=== PATIENT | male | born 1950 | race Caucasian/White ===

== ENCOUNTER 2023-10-10 11:48 | Inpatient (IN) ==
--- NOTE | 2023-10-10 12:18 | Emergency Department Note ---
Impression & Plan Syncope and collapse, Moderate Alzheimer's dementia ED Provider Note NAME: FANTASMA PHAN AGE: 73 SEX: M : 1950 ARRIVES VIA: Ambulance INFORMANT: Patient, , triage note ED PROVIDER(S): Ruddy Haywood MD CHIEF COMPLAINT: Near syncope, vomiting, stool incontinence MEDICAL DECISION MAKING: Patient presented due to concern for near syncopal episode. IV was established blood work was obtained. Patient did almost become syncopal and reports some shakiness had some confusion but this was almost baseline confusion but given that plus the incontinence a CT of the head was obtained. Patient denies any head or neck pain. Patient was ordered IV fluids. Patient was also given IV Zofran. Patient has a normal white count H&H and platelet count. Kidney function is unremarkable mild prerenal azotemia with a BUN/creatinine ratio of 31 with a BSG 139. Patient CT head that showed moderate ventriculomegaly does raise the possibility of NPH. Patient's chest x-ray shows cardiomegaly without evidence of congestive failure.Of note the patient CT head does show ventriculomegaly. After discussing this with the patient's she states that he has been worked up from an NPH standpoint which has been negative. Patient was able to get up and use the bathroom. Urinalysis was obtained. After further discussion with the patient the patient's family members they would prefer him to stay in the hospital which not think is unreasonable given the patient's presyncopal event for telemetry monitoring. I did speak with the on-call hospital service Dr. Galeano and the patient was admitted to medicine service Discussion w/ other healthcare providers: Dr. Galeano medicine service Prior /Outside records reviewed: None Differential diagnosis: Benign positional vertigo, dehydration, hypovolemia, anemia, infection, hypoglycemia, electrolyte abnormalities, arrhythmia, tox among others were considered. Diagnostics, as interpreted by me: ECG: Sinus bradycardia, rate of 52, first-degree AV block noted, prolonged KS, normal QRS, normal axis no ST elevations. Cardiac monitoring: An order was placed for continuous cardiac monitoring. The monitor shows a rate of 55 with sinus bradycardia rhythm. Patient was placed on pulse oximetry Medical decision rules: None Imaging studies: I informally interpreted the patient's chest x-ray without obvious pneumonia or pneumothorax with formal report to follow. HPI: Patient presents due to concern for near syncope that occurred prior to arrival. The patient reportedly had been sitting in a shower chair and completed a hot shower when his was doing some additional hygiene related things when apparently he almost passed out slumped over did have some shakiness and may have been confused but states that that is typical for his Alzheimer's. He did not pass out. The patient did have an episode of vomiting and was incontinent of stool in route. No history of seizures. Patient currently feels well now. at bedside states that the patient seems at baseline. Patient reportedly ate breakfast this morning. Prolonged outdoor activity. Patient's appetite has been fairly good although he may not be drinking as much in terms of liquids. Patient denies any chest pains or shortness of breath. Patient denies any abdominal pain PAST MEDICAL HISTORY: See Below PAST SURGICAL HISTORY: See Below SOCIAL HISTORY: See Below HOME MEDICATIONS: See Below ALLERGIES: See Below VITALS: See Below PHYSICAL EXAMINATION: GENERAL: NAD, non-toxic. EYE EXAM: Normal conjunctiva. PERRL, no anisocoria and EOM's grossly intact w/o pain. OROPHARYNX: Moist mucus membranes, grossly normal dentition. NECK: Trachea midline, no stridor. LUNGS: Clear to auscultation. Normal chest wall mechanics. HEART: NSR, no MRG. ABDOMEN: Abdomen soft, non-tender, no masses, no rebound or guarding. BACK: No CVA TTP. SKIN: No rashes and no bruising. UPPER EXTREMITIES: Upper extremities are grossly normal. LOWER EXTREMITIES: Grossly normal, no edema. NEURO EXAM: Awake and alert following commands, cranial nerves II-XII grossly intact, normal speech, moves all 4 extremities. Past Med/Surg History Problem List (Updated 10/11/23 @ 11:03 by Ruddy Haywood MD) Moderate Alzheimer's dementia (Acute) Syncope and collapse (Acute) Encounter for pre-operative examination Medical History History of gout [place] (hard of hearing) Lt > Rt Surgical History History of left cataract extraction History of right inguinal hernia repair History of left inguinal hernia repair History of vasectomy History of colonoscopy Family History Other No family history of adverse response to anesthesia Social History Smoking Status: Never smoker Second Hand Exposure: No; Do You Dip or Chew Tobacco: No; Hx Alcohol Use: Yes Alcohol type: beer and wine Hx Substance Use: No Preferred Language: Niuean Communication Ability: Impaired Mattress Spring Encaser Required: No Beliefs That Will Affect Care: None Current Living Situation: Spouse Feels Safe at Home: Yes Safety Concerns: Feels Safe At This Time Assistive Devices: Walker Allergies Allergies Allergy/AdvReac Type Severity Reaction Status Date / Time No Known Allergies Allergy Verified 03/11/23 16:37 Home Meds Home Medications Medication Instructions Recorded Confirmed cyanocobalamin (vitamin B-12) 1,000 mcg PO DAILY 10/10/23 10/10/23 pantoprazole 20 mg tablet,delayed 20 mg PO DAILY 10/10/23 10/10/23 release Results & Data (ED) Vital Signs Vital Signs - 24 hr 10/10/23 12:03 10/10/23 12:03 10/10/23 12:06 Temperature 36.4 C L Temperature Source Oral Pulse Rate 52 L 53 L 53 L Pulse Rate from SpO2 Sensor 53 L Pulse Rhythm Regular Pulse Strength Normal Respiratory Rate 18 12 Respiratory Effort / Characteristics Non-Labored Respiratory Depth Normal Respiratory Pattern Regular Blood Pressure 123/81 Blood Pressure Mean 95 Blood Pressure Position Lying Pulse Oximetry 94 95 Oxygen Delivery Method Room Air Sepsis Recent Fever Within 48 Hours No Sepsis New/Unexplained Change in Mental Status N/A Sepsis Action Taken by Nursing No Action Required 10/10/23 12:42 10/10/23 13:18 10/10/23 13:33 Temperature Temperature Source Pulse Rate 55 L 62 64 Pulse Rate from SpO2 Sensor 61 65 Pulse Rhythm Pulse Strength Respiratory Rate 14 14 12 Respiratory Effort / Characteristics Respiratory Depth Respiratory Pattern Blood Pressure Blood Pressure Mean Blood Pressure Position Pulse Oximetry 97 96 Oxygen Delivery Method Sepsis Recent Fever Within 48 Hours Sepsis New/Unexplained Change in Mental Status Sepsis Action Taken by Nursing 10/10/23 13:54 10/10/23 14:00 10/10/23 14:06 Temperature Temperature Source Pulse Rate 66 63 Pulse Rate from SpO2 Sensor 67 Pulse Rhythm Pulse Strength Respiratory Rate 13 13 Respiratory Effort / Characteristics Respiratory Depth Respiratory Pattern Blood Pressure 116/80 Blood Pressure Mean 90 Blood Pressure Position Pulse Oximetry 97 Oxygen Delivery Method Sepsis Recent Fever Within 48 Hours Sepsis New/Unexplained Change in Mental Status Sepsis Action Taken by Long-Term Medications Current Medication List: was personally reviewed by me Laboratory Data Attestation: I reviewed the patient's lab results. 10/11/23 06:58 10/11/23 06:58 Lab Results 10/10/23 10/10/23 Range/Units 12:00 15:10 WBC 7.38 (4.8-10.8) K/ul RBC 4.96 (4.70-6.10) M/uL Hgb 15.3 (14.0-18.0) g/dl Hct 45.6 (42.0-52.0) % MCV 91.9 (80.0-100.0) fL MCH 30.8 (25.0-34.0) pg MCHC 33.6 (32.0-36.0) g/dL RDW Std Deviation 44.8 (36.4-46.3) fL RDW Coeff of Jossie 13.2 (11.5-14.5) % Plt Count 197 (130-400) K/uL MPV 10.0 (9.4-12.4) fL Immature Gran % (Auto) 0.3 % Neut % (Auto) 45.4 % Lymph % (Auto) 40.2 % Centre % (Auto) 9.9 % Eos % (Auto) 3.1 % Baso % (Auto) 1.1 % Neut # (Auto) 3.35 (1.40-6.50) K/uL Lymph # (Auto) 2.97 (1.20-3.40) K/uL Centre # (Auto) 0.73 H (0.11-0.59) K/uL Eos # (Auto) 0.23 (0.00-0.50) K/uL Baso # (Auto) 0.08 (0.00-0.20) K/uL Immature Gran # (Auto) 0.02 (0.01-0.20) K/uL PT 11.2 (9.0-12.0) Seconds INR 1.0 (0.9-1.1) Sodium 140 (136-145) mmol/L Potassium 3.8 (3.5-5.1) mmol/L Chloride 107 (98-107) mmol/L Carbon Dioxide 27 (21-32) mmol/L Anion Gap 6 (3-11) BUN 23 (6-23) mg/dl Creatinine 1.08 (0.6-1.4) mg/dl Est Cr Clr Drug Dosing 66.8 ml/min Est GFR ( Amer) 77.4 ml/min Est GFR (Non-Af Amer) 66.8 ml/min BUN/Creatinine Ratio 21.3 H (10-20) Glucose 139 H (70-99(Fasting)) mg/dl Calcium 9.2 (8.6-10.3) mg/dl Magnesium 2.2 (1.7-2.4) mg/dl Total Bilirubin 0.6 (0.2-1.0) mg/dl AST 23 (13-39) U/L ALT 25 (7-52) U/L Alkaline Phosphatase 49 (34-104) U/L Troponin I High Sens 3.7 (0-20) pg/ml Total Protein 7.3 (6.0-8.3) gm/dl Albumin 4.0 (3.4-5.0) gm/dl Globulin 3.3 (2.5-4.0) gm/dl Albumin/Globulin Ratio 1.2 (0.9-2) TSH 4.415 (0.300-4.500) uIu/ml Urine Color Yellow Urine Appearance Clear (Clear) Urine pH 5.5 (4.5-7.5) Ur Specific [place] 1.022 (1.000-1.030) Urine Protein Negative (Negative) Urine Glucose (UA) Negative (Negative) Urine Ketones Negative (Negative) Urine Blood Negative (Negative) Urine Nitrite Negative (Negative) Urine Bilirubin Negative (Negative) Urine Urobilinogen Negative (Negative) Ur Leukocyte Esterase Negative (Negative) Administered Medications Discontinued Medications Sodium Chloride (Nss) 1,000 mls @ 999 mls/hr IV .Q1H1M MASON Stop: 10/10/23 13:30 Last Infusion: 10/10/23 14:15 Dose: Infused Documented By: Admin: 10/10/23 12:55 Dose: 999 mls/hr Documented By: LINSEY Ondansetron HCl (Ondansetron Inj 2 Mg/Ml 2 Ml Vial) 4 mg IV NOW STA Stop: 10/10/23 12:23 Last Admin: 10/10/23 14:15 Dose: Not Given Documented By[place] [facility] [place] Radiologist's Impression: Chest X-Ray 10/10/23 12:23 SINGLE VIEW CHEST CLINICAL HISTORY: Generalized weakness. FINDINGS: An AP, portable, upright chest radiograph is compared to study dated 03/11/2023. The heart is enlarged. The pulmonary vasculature is noncongested. Chronic mucosal thickening is similar to previous. Left basilar opacities likely represent scarring/atelectasis. No large pleural effusion or pneumothorax is seen. The skeletal structures are osteopenic. The bony thorax is grossly intact. IMPRESSION: 1. Cardiomegaly without radiographic evidence of congestive failure. 2. Left basilar opacities likely represent scarring/atelectasis. Correlate clinically. ACT 112: Negative or not required by law. Electronically signed by: Torey Belle M.D. 10/10/2023 12:[address] 10/10/23 12:[address] DOSE: 663.26 mGy.cm HISTORY: shakiness, stool incontinence, near syncope, confusion TECHNIQUE: Multiaxial CT images of the head were performed without the use of intravenous contrast. Automated exposure control was utilized for this study. A dose lowering technique was utilized adhering to the principles of ALARA. Comparison: Head CT 03/11/2023. Findings: The paranasal sinuses and mastoid air cells are clear. The calvarium and skull base are intact. There is no mass, hematoma, midline shift, acute infarct. Moderate ventriculomegaly again noted. This appears to be out of portion to the sulcal atrophy and raises the possibility of normal pressure hydrocephalus. This is similar to the prior study. Periventricular white matter hypodensity persists Impression: 1. No acute infarct or intracranial hemorrhage. 2. Moderate ventriculomegaly again noted. This appears to be out of portion to the sulcal atrophy and raises the possibility of normal pressure hydrocephalus. This is similar to the prior study. ACT 112: Negative or not required by law. Electronically signed by: Dax Han M.D. 10/10/2023 1:18 PM Discharge Plan Visit Data Chief Complaint: Syncope (Near Syncope) Stated Complaint: SYNCOPE ED Provider: Ruddy Haywood Discharge Problem: Syncope and collapse, Moderate Alzheimer's dementia Patient Disposition: Admitted As Inpatient Discharge Instructions Interventions: ED Discharge Assessment Last Done: 10/10/23 17:10
[2023-10-10 12:36] LABS: Basophils # (auto) 0.08 K/uL (0.00-0.20); Basophils % (auto) 1.1 %; Eosinophils # (auto) 0.23 K/uL (0.00-0.50); Eosinophils % (auto) 3.1 %; Hematocrit (blood only) 45.6 % (42.0-52.0); Hemoglobin 15.3 g/dl (14.0-18.0); Immature Granulocytes # (auto) 0.02 K/uL (0.01-0.20); Immature Granulocytes % (auto) 0.3 %; Lymphocytes # (auto) 2.97 K/uL (1.20-3.40); Lymphocytes % (auto) 40.2 %; Mean Corpuscular Hemoglobin 30.8 pg (25.0-34.0); Mean Corpuscular Hgb Conc 33.6 g/dL (32.0-36.0); Mean Corpuscular Volume 91.9 fL (80.0-100.0); Monocytes # (auto) 0.73 K/uL (0.11-0.59); Monocytes % (auto) 9.9 %; Neutrophils # (auto) 3.35 K/uL (1.40-6.50); Neutrophils % (auto) 45.4 %; Platelet Count 197 K/uL (130-400); RDW Coefficient of Variation 13.2 % (11.5-14.5); RDW Standard Deviation 44.8 fL (36.4-46.3); Red Blood Count 4.96 M/uL (4.70-6.10); White Blood Count 7.38 K/ul (4.8-10.8)
--- NOTE | 2023-10-10 12:44 | XRay Report ---
SINGLE VIEW CHEST CLINICAL HISTORY: Generalized weakness. FINDINGS: An AP, portable, upright chest radiograph is compared to study dated 03/11/2023. The heart i s enlarged. The pulmonary vasculature is noncongested. Chronic mucosal thickening is similar to previ ous. Left basilar opacities likely represent scarring/atelectasis. No large pleural effusion or pneum othorax is seen. The skeletal structures are osteopenic. The bony thorax is grossly intact. IMPRESSION: 1. Cardiomegaly without radiographic evidence of congestive failure. 2. Left basilar opacities likely represent scarring/atelectasis. Correlate clinically. ACT 112: Negative or not required by law. Electronically signed by: Torey Belle M.D. 10/10/2023 12:42 PM
[2023-10-10 12:53] LABS: Albumin Globulin Ratio 1.2 (0.9-2); BUN Creatinine Ratio 21.3 (10-20); Bilirubin,Total 0.6 mg/dl (0.2-1.0); Calcium 9.2 mg/dl (8.6-10.3); Creatinine Clr Calc Pharmacy 66.8 ml/min; Est GFR (African American) 77.4 ml/min; Est GFR (Non-African American) 66.8 ml/min; Globulin 3.3 gm/dl (2.5-4.0); Magnesium 2.2 mg/dl (1.7-2.4); Potassium 3.8 mmol/L (3.5-5.1); Total Protein 7.3 gm/dl (6.0-8.3)
[2023-10-10] MEDS: SODIUM CHLORIDE 0.9% 1,000 ML IV SCH (12:55)
[2023-10-10 12:59] LABS: Troponin I High Sensitivity 3.7 pg/ml (0-20)
[2023-10-10 13:07] LABS: Prothrombin Time 11.2 Seconds (9.0-12.0)
[2023-10-10 13:08] LABS: Thyroid Stimulating Hormone 4.415 uIu/ml (0.300-4.500)
--- NOTE | 2023-10-10 13:20 | CT Scan Report ---
HEAD CT NONCONTRAST CT DOSE: 663.26 mGy.cm HISTORY: shakiness, stool incontinence, near syncope, confusion TECHNIQUE: Multiaxial CT images of the head were performed without the use of intravenous contrast. A utomated exposure control was utilized for this study. A dose lowering technique was utilized adheri ng to the principles of ALARA. Comparison: Head CT 03/11/2023. Findings: The paranasal sinuses and mastoid air cells are clear. The calvarium and skull base are int act. There is no mass, hematoma, midline shift, acute infarct. Moderate ventriculomegaly again noted. This appears to be out of portion to the sulcal atrophy and raises the possibility of normal pressur e hydrocephalus. This is similar to the prior study. Periventricular white matter hypodensity persist s Impression: 1. No acute infarct or intracranial hemorrhage. 2. Moderate ventriculomegaly again noted. This appears to be out of portion to the sulcal atrophy and raises the possibility of normal pressure hydrocephalus. This is similar to the prior study. ACT 112: Negative or not required by law. Electronically signed by: Dax Han M.D. 10/10/2023 1:18 PM
[2023-10-10] MEDS: ONDANSETRON INJ 2 MG/ML 2 ML VIAL IV STA (14:15)
--- NOTE | 2023-10-10 15:29 | History & Physical Report ---
Date of Service October 10, 2023 Assessment & Plan (1) Syncope and collapse: (2) Moderate Alzheimer's dementia: Plan Mr. Arevalo is a 73 year old gentleman with moderate Alzhemier's dementia, GERD, traumatic fall c/b SAH 11/2022 presented to [facility] ED due to syncopal episode. Patient asymptomatic at time of exam. Concern is raised given his history of SAH, progressive cognitive impairment of this events ,prompting neuro consult. Symptoms suggestive of prodromal vasovagal event. #Syncope with convulsive movements #History of SAH unwitnessed fall 11/2022, found down, CT with small right SAH Hold chemoprophylaxis episodes of diaphoresis, pallor, incontinence suggestive of vasovagal episode, however given progressive cognitive impairment s/p traumatic injury No longer on medications for dementia 2/2 ADRs Neurology consult for any further evaluation -No clear postictal phase, patient followed commands nearly 1 minute post episode, however, multiple episodes and concerning history warrant discussion with neuro A1C and lipid panel in am ECHO monitor on tele Fall precautions orthostats #Moderate Alzhemier's Dementia Continue to follow with neurology delirium precautions continue b12 #GERD continue ppi #BPH with incontinence wears depends at home UA negative #Aortic root aneurysm last echo 2022 Aortic root is minimally dilated at 4.1 cm, Prox ascending aorta is minimally enlarged at 4.1 cm. ECHO as above DVT ppx SCDs admit med tele Admission and Anticipated Discharge Date Admission Date: Time spent evaluating patient, direct bedside care, chart review, placing orders, interpretation of diagnostic studies, discussion with consultants, patient, and family members, as well as other required patient management activities is 75 minutes. History of Present Illness Primary Care Provider: Kenn Bliss DO Mr. Arevalo is a 73 year old gentleman with moderate Alzhemier's dementia, GERD, tra umatic fall c/b SAH 11/2022 presented to [facility] ED due to syncopal episode. Patient states he doesn't recall events and deferred history to . Hayley at bedside, , reports that she woke the patient up this morning and he ate breakfast. She then prepped him for a shower. He uses a shower chair and prefers very hot showers--during this time she noted that his eyes rolled back, he began to jerk his arms, became pale and slumped. During this time the got water from the kitchen and patient was able to follow command and drink. As the episode subsided, patient was incontinent of stool. states he seemed at his normal shortly thereafter but agreed for EMS to bring him to ED. states that this episode has occurred previously around 3months prior--same scenario, in the shower. At that time, EMS gave a bolus in field and patient did not present to an ED. Patient states name and his location in a hospital, but did not state year and often deferred to . In the ED, vitals were notable for BP of 120s, HR of 50-60s, and O2 sat of high 90s on room air . Imaging revealed stable CT head EKG with sinus bradycardia, stable compared to prior ED interventions: 1L, zofran Patient to be admitted to [facility]. for further evaluation and management of syncopal episode Allergies Allergy/AdvReac Type Severity Reaction Status Date / Time No Known Allergies Allergy Verified 03/11/23 16:37 Home Medications Medication Instructions Recorded Confirmed Type cyanocobalamin (vitamin B-12) 1,000 mcg PO DAILY 10/10/23 10/10/23 History pantoprazole 20 mg tablet,delayed 20 mg PO DAILY 10/10/23 10/10/23 History release Past Med/Surg History Problem List (Updated 10/10/23 @ 19:25 by Haley Galeano MD) Moderate Alzheimer's dementia Syncope and collapse Encounter for pre-operative examination Medical History History of gout [place] (hard of hearing) Lt > Rt Surgical History History of colonoscopy History of left cataract extraction History of left inguinal hernia repair History of right inguinal hernia repair History of vasectomy Family History Other No family history of adverse response to anesthesia Social History Smoking Status: Never smoker Second Hand Exposure: No; Do You Dip or Chew Tobacco: No; Hx Alcohol Use: Yes Alcohol type: beer and wine Hx Substance Use: No Preferred Language: [place] Communication Ability: Impaired Grinder Operator Automatic Required: No Beliefs That Will Affect Care: None Current Living Situation: Spouse Feels Safe at Home: Yes Safety Concerns: Feels Safe At This Time Assistive Devices: Walker Review of Systems Review of Systems: Constitutional: (-) fever/chills, (-) recent loss of weight, (-) appetite changes, (-) night sweats. Head: (-) headache, (-) dizziness. Eye: (-) blurring of vision, (-) double vision, (-) redness. Ear: (-) hearing loss, (-) discharge, (-) vertigo Nose: (-) discharge, (-) bleeding, (-) congestion, (-) post nasal drip. Throat: (-) sore throat, (-) hoarseness of voice, (-) odynophagia. Cardiovascular: (-) chest pain, (-) palpitations, (-) syncope, (-) orthopnea, (- ) PND, (-) leg swelling. Respiratory: (-) shortness of breath, (-) cough, (-) wheezing, (-) hemoptysis. Neuro: (-) weakness in extremities, (-) numbness, (-) tingling, (-) tremor. Gastrointestinal: (-) belly pain, (-) belly distension, (-) nausea, (-) vomiting, (-) diarrhea, (-) constipation Genitourinary: (-) hematuria, (-) dysuria, (-) polyuria, (-) hesitancy, (-) frequency, (-) urinary incontinence. Physical Exam Physical Exam: GENERAL APPEARANCE: AxOx2 name, place, generally well-appearing male, pleasant w/ dementia, no acute distress. HEENT: NC, AT. MMM. EOMI, clear conjunctiva, oropharynx clear. NECK: Supple without lymphadenopathy. No stiffness or restricted ROM. HEART: Normal rate and regular rhythm, normal S1/S1, no m/r/g LUNGS: CTAB, moving air well. No crackles or wheezes are heard. ABDOMEN: Soft, nontender, nondistended with good bowel sounds heard. BACK: No CVAT, no obvious deformity. EXTREMITIES: Without cyanosis, clubbing or edema. NEUROLOGICAL: Grossly nonfocal. Alert and oriented, moving all 4 extremities. CN not formally tested but appear grossly intact. Skin: Warm and dry without any rash. Results & Data Results & Data Vital Signs (Past 12 Hours) Vital Signs Temp Pulse Resp BP Pulse Ox O2 Del Method 10/10/23 14:06 63 13 10/10/23 14:00 116/80 10/10/23 13:54 66 13 97 10/10/23 13:33 64 12 96 10/10/23 13:18 62 14 97 10/10/23 12:42 55 L 14 10/10/23 12:06 53 L 12 95 10/10/23 12:03 53 L 10/10/23 12:03 36.4 C L 52 L 18 123/81 94 Room Air Diagnostic Findings 2022 Echo results reviewed - Normal LVEF at 55-59% No wall motion abnormalities. No significant valvular disease. Aortic root is minimally dilated at 4.1 cm Prox ascending aorta is minimally enlarged at 4.1 cm. Stable measurements. No concerning findings. No changes at this time Medications Administered Short CBC 10/10/23 Range/Units 12:00 WBC 7.38 (4.8-10.8) K/ul Hgb 15.3 (14.0-18.0) g/dl Hct 45.6 (42.0-52.0) % Plt Count 197 (130-400) K/uL BMP 10/10/23 12:00 Sodium 140 Potassium 3.8 Chloride 107 Carbon Dioxide 27 BUN 23 Creatinine 1.08 Glucose 139 H Calcium 9.2 Liver Function 10/10/23 Range/Units 12:00 Total Bilirubin 0.6 (0.2-1.0) mg/dl AST 23 (13-39) U/L ALT 25 (7-52) U/L Alkaline Phosphatase 49 (34-104) U/L Albumin 4.0 (3.4-5.0) gm/dl Urine 10/10/23 Range/Units 15:10 Urine Color Yellow Urine Appearance Clear (Clear) Urine pH 5.5 (4.5-7.5) Ur Specific [place] 1.022 (1.000-1.030) Urine Protein Negative (Negative) Urine Glucose (UA) Negative (Negative)
[2023-10-10 15:39] LABS: Appearance Urine Clear (Clear); Bilirubin Urine Negative (Negative); Blood Urine Negative (Negative); Color Urine Yellow; Glucose Urine UA Negative (Negative); Ketones Urine Negative (Negative); Leukocyte Esterase Urine Negative (Negative); Nitrite Urine Negative (Negative); Protein Urine Negative (Negative); Specific Gravity Urine 1.022 (1.000-1.030); Urobilinogen Urine Negative (Negative); pH Urine 5.5 (4.5-7.5)
--- NOTE | 2023-10-10 22:28 | Electrocardiogram Report ---
Test Reason : Blood Pressure : / mmHG Vent. Rate : 052 BPM Atrial Rate : 052 BPM P-R Int : 240 ms QRS Dur : 098 ms QT Int : 428 ms P-R-T Axes : 067 050 059 degrees QTc Int : 398 ms Sinus bradycardia with 1st degree A-V block Diffuse ST elevation, consider early repolarization When compared with ECG of 11-MAR-2023 14:47, No significant change was found Confirmed by Juan Mondragon ([id number]) on 10/10/2023 10:28:21 PM Referred By: REFERRED SELF Confirmed By:Juan Mondragon
[2023-10-11 08:08] LABS: Hematocrit (blood only) 41.8 % (42.0-52.0); Hemoglobin 14.2 g/dl (14.0-18.0); Mean Corpuscular Hemoglobin 30.9 pg (25.0-34.0); Mean Corpuscular Volume 90.9 fL (80.0-100.0); Mean Platelet Volume 10.2 fL (9.4-12.4); Platelet Count 189 K/uL (130-400); RDW Coefficient of Variation 13.2 % (11.5-14.5); RDW Standard Deviation 43.8 fL (36.4-46.3); White Blood Count 8.99 K/ul (4.8-10.8)
[2023-10-11 08:21] LABS: BUN Creatinine Ratio 18.4 (10-20); Calcium 8.8 mg/dl (8.6-10.3); Est GFR (Non-African American) 70.7 ml/min; Phosphorus 3.3 mg/dl (2.5-4.9); Potassium 4.1 mmol/L (3.5-5.1)
--- OUTSIDE RECORDS SUMMARY | 2023-10-11 08:26 | External Medical Summary ---
Author Name Unknown Address Unknown Organization : Laboratory Report Ordering Provider Test Date Status MISAEL COUCH 08/11/2023 10:35:32 Final Observation Date Value Abnormality Reference (Units ) Status Vitamin E, level 08/11/2023 10:35:32 12.8 5.7 -19.9 (mg/L) Final Levels of alpha-tocopherol < 5 mg/L are consistent
with Vitamin E deficiency in adults. Beta+gamma tocopherol [Mass/ volume] in Serum or Plasma 08/11/2023 10:35:32 <1.0 <=4.3 (mg/L) Final Vitamin supplementation with in 24 hours prior to
blood draw may affect the accuracy of the results.
This test was developed and its analytical performance
characteristics have been determined by [facility] [place], [place]. It has
not been cleared or approved by the U.S. Food and Drug
Administration. This assay has been validated pursuant
to the CLIA regulations and is used for clinical
purposes.

Test Performed at:
[email or web address]
[address]
[place] [address]
Dax Steven M.D., Ph.D.,Director of Laboratories Performing Location
--- OUTSIDE RECORDS SUMMARY | 2023-10-11 08:26 | External Medical Summary ---
Author Name Unknown Address Unknown Organization [id number]:[facility] [place] [address] Laboratory Report Ordering Provider Test Date Status CELINA COUCHGIN 08/04/2023 15:12:27 Final Warfarin Therapy
INR: 2 .0-3.0 conventional anticoagulation
INR: 2.5- 3.5 high intensity anticoagulation Observation Date Value Abnormality Reference (Units ) Status PT 08/04/2023 15:12:27 13.8 11.6-15.2 (seconds) Final INR 08/04/2023 15:12:27 1.1 0.8-1.2 Final Performing Location [facility] [place] [address]
--- OUTSIDE RECORDS SUMMARY | 2023-10-11 08:26 | External Medical Summary | Summary of Care ---
Author Name Unknown Organization [facility] Address [address] [place] [address] Phone [phone] Care Team Providers Care Iv Therapy Nurse Name Role Phone Kenn Bliss DO Primary Care Provider Reason for Visit * Reason Comments Follow Up Encounter Details Date Type Department Care Team ([facility] st Contact Info) Description 08/28/2023 3:30 PM EDT Telemedicine Neurology, [place] [address] [facility] [address] [place] [address] Madie Sanchez MD [address] [place] [address] [place] [address] Moderate late onset Alzheimer's dementia without behavioral disturbance, psychotic disturbance, mood disturbance, or anxiety (HCC)*; Other polyneuropathy; Vascular parkinsonism (HCC) Allergies No known active allergiesdocumented as of this encounter (statuses as of 08/28/2023) Medications Medication Sig Dispensed Refills Start Date End Date Status Debrox 6.5 % Otic Solution (Carbamide Peroxide)Indications: Bilateral impacted cerumen Administer 5 Drops into the left ear in the morning and 5 Drops before bedtime. Fill ear canal and insert cotton plug. Remove plug after 15 to 30 minutes. For 2 weeks. 15 mL 0 2 Active Acetaminophen 325 MG Oral Tablet (Tylenol) Take 2 Tablets by mouth every 4 hours as needed. 0 3 Active B-12 1000 MCG Oral Capsule Take 1 Capsule by mouth in the morning. 90 Capsule 3 3 Active Donepezil HCl 10 MG Oral Tablet (Aricept) Take 1 Tablet by mouth in the morning. Take with largest meal of the day.. 90 Tablet 3 3 08/28/19 24 Discontinu ed(Medicat ion List Clean Up) Melatonin 3 MG Oral Capsule Take 1 Capsule by mouth at bedtime. 0 08/28/19 24 Discontinu ed(Medicat ion List Clean Up) Venlafaxine HCl ER 37.5 MG Oral Capsule Extended Release 24 Hour (Effexor XR) Take 1 Capsule by mouth in the morning. 30 Capsule 3 3 08/28/19 24 Discontinu ed(Medicat ion List Clean Up) QUEtiapine Fumarate 25 MG Oral Tablet (SEROquel)Indications :Memory change,Subarachnoid hemorrhage (HCC),Cerebral ventriculomegaly take 1 tablet by mouth at bedtime 90 Tablet 1 3 08/28/19 24 Discontinu ed(Medicat ion List Clean Up) Ondansetron HCl 4 MG Oral Tablet (Zofran) take 1 tablet by mouth every 8 hours if needed for nausea 20 Tablet 5 3 08/28/19 24 Discontinu ed(Medicat ion List Clean Up) Sildenafil Citrate 50 MG Oral Tablet take 1 tablet by mouth once daily if needed for ERECTILE DYSFUNCTION 30 Tablet 0 3 08/28/19 24 Discontinu ed(Medicat ion List Clean Up) methylPREDNISolone 4 MG Oral Tablet Therapy Pack (Medrol Dosepack) follow package directions 21 Tablet 0 3 08/28/19 24 Discontinu ed(Medicat ion List Clean Up) Modafinil 100 MG Oral Tablet (Provigil)Indications :Idiopathic hypersomnolence Take 1 Tablet by mouth in the morning. 30 Tablet 3 4 08/28/19 24 Discontinu ed(Medicat ion List Clean Up) Memantine HCl 5 MG Oral Tablet (Namenda) Take by mouth 1 tab daily week 1, 1 tab twice daily week 2, 2 tabs in am & 1 tab in pm week 3. 42 Tablet 0 4 08/28/19 24 Discontinu ed(Medicat ion List Clean Up) Memantine HCl 10 MG Oral Tablet (Namenda) Take 1 Tablet by mouth 2 times a day with morning and evening meals. WEEK 4 AND THEREAFTER 180 Tablet 3 4 08/28/19 24 Discontinu ed(Medicat ion List Clean Up) Pantoprazole Sodium 20 MG Oral Tablet Delayed Release (Protonix) Take 1 Tablet by mouth in the morning. 90 Tablet 1 4 08/28/19 24 Discontinu ed(Medicat ion List Clean Up) documented as of this encounter (statuses as of 08/28/2023) Active Problems Problem Noted Date Diagnosed Date Aneurysm of ascending aorta without rupture 06/2022 Tick bite of male external genital organ 023 Well adult exam 01/21/2018 Dyslipidemia, goal LDL below 160 06/16/2014 Gout 04/01/2008 ADVANCE DIRECTIVE INFORMATION 10/08/2005 Overview: Pt given booklet. 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 BILAT INGUINAL HERNIA 11/24/20032018 PURE HYPERCHOLESTEROLEM 11/10/200304/04 Overview: Per Lipid Taxonomy. documented as of this encounter (statuses as of 08/28/2023) Immunizations Name Administration Dates Next Due COVID-19 mRNA, LNP-s, No Pre serve, 2-Dose Series (Pfizer) 02/04/2021 COVID-19, LNP-s, No Preserve , Raghavendra-sucrose, Ages 12+ (Pfizer) 08/11/2021 Pneumococcal Conjugate Vacc, 13 Valent (Prevnar) 06/16/2014 Pneumococcal Polysaccharide PPV23 (Pneumovax) SARS-COV-2 (COVID-19) Vaccine Unspecified 2020 Season Influenza, Quad, PF, Adjuvanted, 65+ Yrs, IM (FLUAD) 02/28/2022 Seasonal Influenza Virus Vac cine, Unspecified Formulation 02/04/2020 Seasonal Influenza, PF, 6 M & above, IM , (FluLaval or Fluzone) 01/03/2021,01/20/2018 Seasonal Influenza, Quadrivalent Hd (Fluzone Hd) 03/11/2023 Seasonal Influenza, Quadrivalent, No Preserve, I M 02/06/2017,02/07/2016 Seasonal Influenza, Trivalent, Adjuvanted, 65+ y rs 02/09/2019 TDAP (age 10 and older)(Boostrix) 11/17/2022, TDAP (age 11 and older)(Adacel) 03/22/2011 Zoster Vaccine Recombinant (Shingrix) 10/12/2019 ,07/01/2019 documented as of this encounter Social History Tobacco Use Types Packs/Day Years Used Date Smoking Tobacco: Never Smokeless Tobacco: Never Alcohol Use Standard Drinks/Week Comments Yes 0 (1 standard drink = 0.6 oz pur e alcohol) 1.5 beers a day PHQ-2 Answer Date Recorded PHQ Adult Total Score 0 11/04/2022 Hunger Vital Sign Answer Date Recorded Within the past 12 months, y ou worried that your food would run out before you got the money to buy more. Never true 03/11/20 23 Within the past 12 months, t he food you bought just didn't last and you didn't have money to get more. Never true 03/11/2023 Sex and Gender Information Value Date Recorded Sex Assigned at Male 03/11/2023 9:27 AM EST Gender Identity Male 03/11/2023 9:27 AM EST Sexual Orientation Straight 03/11/2023 9: 27 AM EST Job Start Date Occupation Industry Not on file Not on file Not on file documented as of this encounter Progress Notes * Madie Sanchez MD - 08/28/2023 3:33 PM EDT Patient location: HOME. I was in a hospital or clinic location. After connecting through televideo,patient was verified with two unique identifiers. Patient (or authorized legal new accounts banking representative) was then informed that this was a Telemedicine visit and being conducted confidentially over secure lines. Methods to assure confidentiality were taken. Patient acknowledged consent and understanding of pr ivacy and security of the Telemedicine visit. The patient agreed to participate. [facility] Today I had the pleasure of seeing Angel Arevalo in follow-up at the [facility] Program. 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 Imaging from 2020 to 2022 shows enlarged ventricles (stable) as well as MTL atrophy, and vascular changes (confluent occipital horns of lateral ventricles). Ongoing question of NPH resolved after unsuccessful large volume tap August 2023. 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 He had CSF testing, neg for CJD, "borderline" AD--but more closely resembling c/w--ATI 0.26 and p-tau in the 63.7 (cut off for consistent 0.68). MoCA showed reduction in EF, V/S, memory. Exam shows peripheral neuropathy and resultant sensory ataxia and now more vascular parkinsonism (hard to stand from sitting). Gait changes from peripheral neuropathy (EMG shows length dependent; exam shows decreased sensationand proprioception). The most important diagnosis in this case is dementia of the Alzheimer's type, moderate stages. His helps with bathing, and prompting for some ADLs He has become incontinent (not clear if heis unaware or aware of urge). He can mostly dress himself. Behavioral Issues: +sleeping a lot; +apathy, ("flat" he calls it). Effexor tried (s/e); modafinil was not approved. May consider stimulant? Safety Issues: Fall risk (neuropathy +vascular parkinsonism)--has been getting home PT Has INSURANCE CLAIMS CLERK--didn't find it that helpful. Hayley is interested in cognitive exercises--will ask Nneka if she can compile things--I gave her [place] name for now. On B12. Off Aricept--caused s/e's. Reassured OK not to be on dementia meds Pt lives at home with Hayley and one adult child. Other child visits weekly. Others are involvedin care. Pt's looking for home health -- she plans on trip to [place] with daughter October and wants someone to help with bathing. She saw [facility] once, did not find it that helpful; she sees a therapist whom she finds very helpful. Thank you once again for allowing us to participate in the care of this patient. They will see Dr Whitehead in [place] at least once for in person exam, may cont to see her there or return to see me telemed. No orders found. There are no Patient Instructions on file for this visit. Interval History Since our last visit, by report of the spouse Angel Fitchl has been doing worse. Some good days and bad days. Biggest issues is his sleeping. Appetite has been "pretty good". Weight stable even a little weight gain. Overall less physical activity, still "flat". He is less involved with the home PT. He enjoys seeing his children--less flat then. He "lights up" when he sees them--one lives with them and another once a week. Mood: rare if ever anxiety, restlessness. Or behavioral changes. No depression. Sleeping: Pretty good through the day-- is not sure. Sleeps during the day a lot as well. He comes out of his room pretty late (11am to 1pm) and has a good meal. worried about his sleep--he will go and rest even with people around. She is starting to wonder about home health. She needs someone to come in for bathing and hygiene while she is away. She sees a therapist which has been really helpful for her. He is dressing himself for the most part. Needs help bathing. Incontinent. With regards to our instructions on last visit, the patient has been able to follow all recommendations. Since their last visit, he has had changes to his medications other than what I recommended on his last visit: he is off all meds except B12 . Outpatient Medications Prior to Visit Medication Sig Dispense Refill [DISCONTINUED] Pantoprazole Sodium 20 MG Oral Tablet Delayed Release (Protonix) Take 1 Tablet by mouth in the morning. 90 Tablet 1 [DISCONTINUED] Memantine HCl 10 MG Oral Tablet (Namenda) Take 1 Tablet by mouth 2 times a day with morning and evening meals. WEEK 4 AND THEREAFTER 180 Tablet 3 [DISCONTINUED] Memantine HCl 5 MG Oral Tablet (Namenda) Take by mouth 1 tab daily week 1, 1 tab twice daily week 2, 2 tabs in am & 1 tab in pm week 3. 42 Tablet 0 [DISCONTINUED] Modafinil 100 MG Oral Tablet (Provigil) Take 1 Tablet by mouth in the morning. 30 Tablet 3 [DISCONTINUED] methylPREDNISolone 4 MG Oral Tablet Therapy Pack (Medrol Dosepack) follow package directions 21 Tablet 0 [DISCONTINUED] Ondansetron HCl 4 MG Oral Tablet (Zofran) take 1 tablet by mouth every 8 hours if needed for nausea 20 Tablet 5 [DISCONTINUED] QUEtiapine Fumarate 25 MG Oral Tablet (SEROquel) take 1 tablet by mouth at bedtime 90 Tablet 1 [DISCONTINUED] Sildenafil Citrate 50 MG Oral Tablet take 1 tablet by mouth once daily if needed forERECTILE DYSFUNCTION 30 Tablet 0 B-12 1000 MCG Oral Capsule Take 1 Capsule by mouth in the morning. 90 Capsule 3 [DISCONTINUED] Venlafaxine HCl ER 37.5 MG Oral Capsule Extended Release 24 Hour (Effexor XR) Take 1Capsule by mouth in the morning. 30 Capsule 3 [DISCONTINUED] Melatonin 3 MG Oral Capsule Take 1 Capsule by mouth at bedtime. [DISCONTINUED] Donepezil HCl 10 MG Oral Tablet (Aricept) Take 1 Tablet by mouth in the morning. Take with largest meal of the day.. 90 Tablet 3 Acetaminophen 325 MG Oral Tablet (Tylenol) Take 2 Tablets by mouth every 4 hours as needed. Debrox 6.5 % Otic Solution (Carbamide Peroxide) Administer 5 Drops into the left ear in the morningand 5 Drops before bedtime. Fill ear canal and insert cotton plug. Remove plug after 15 to 30 minutes. For 2 weeks. 15 mL 0 No facility-administered medications prior to visit. Last reviewed on 08/07/2023 8:16 AM by Brittany Venegas MED ASSIST Review of patient's allergies indicates: No Known Allergies Results for orders placed or performed in visit on 08/11/23 VITAMIN B1 (THIAMINE), BLOOD, LC/MS/MS Result Value Ref Range Vitamin B1 (Thiamine),B 132 78 - 185 nmol/L COPPER, SERUM OR PLASMA Result Value Ref Range Copper 131 70 - 175 mcg/dL Examination There were no vitals taken for this visit. On examination today, the patients general appearance was well nourished, well developed, and inno apparent distress. Telephone MMSE Temporal Orientation: 05/09 Date, Month (November), Year (2015), Day (), Season (summer) Spatial Orientation: 06/[address], Town, County, State, telephone number where pt can 'usually be reached' Registration: 06/07 Ball, flag, tree OR table, apple bacilio Working Memory: 06/09 WORLD Backwards or Serial Sevens (DRLW) Namin/1 What is the name of the thing you are speaking into? Three Step Command: 05/07 Say johannyestee, tap the mouthpiece of the phone 3 times, then say I'm back. Repetition: Repeat this phrase: "No ifs ands or buts" Delayed Recall: TOTAL: 01/28 Convert to MMSE: (Total x 0.777) + 6.394 = Additional Information Permission was not requested for observers to be in the room during this visit. This is a tele-video visit and today, I personally spent 66 minutes in pre reviewing the patient's outside/prior records, separately obtaining history, performing a medically appropriate history and exam as documented above, counseling and educating the patient, documenting the clinical informationin the EMR, independently reviewing and interpreting results as documented above and ordering prescription medications, tests and/or procedures as documented above Thank you once for consulting us on this interesting case. Assessment and plan can be found at the beginning of this consultation note. documented in this encounter Plan of Treatment Upcoming Encounters Date Type Department Care Team (Late st Contact Info) Description 09/17/2023 8:00 AM EDT Office Visit [facility] [address] [place] [id number] Kenn Bliss DO [address] [place] [address] Health Maintenance Due Date Last Done Comments COLONOSCOPY-EVERY 3 YRS AGES 18-100 09/24/2019 09/23/2016, 09/23/2016 COVID-19 Vaccine (4 - 2022- season) 2023 08/11/2021, 02/04/2021, 07/03/2020 Depression Screening 11/05/2023 11/04/2022 DTaP,Tdap,and Td Vaccines (4 - Td or Tdap) 11/17/2032 11/17/2022, 11/02/2019, 03/22/2011, Additional history exists Hepatitis C Screening Completed 07/19/2015 Pneumococcal Vaccine: 65+ Years Completed 02/07/2016, 06/16/2014 Zoster Vaccines Completed 10/12/2019, 07/01/2019 Influenza Vaccine (FLU shot) Completed 11/2022, 02/28/2022, 01/03/2021, Additional history exists GARDASIL-HPV IMMUNIZATION SERIES Aged Out No longer eligible based on patient's age to complete this topic Hepatitis B Aged Out No longer eligi ble based on patient's age to complete this topic MENINGOCOCCAL (MENACTRA/MENVEO) Aged Out No longer eligible based on patient's age to complete this topic documented as of this encounter Medical Devices Implanted Type Area Hanger Device Identifier Shelf Expiration Date Model / Serial / Lot Bard Mesh Perfix Plug Implanted:Qty: 1 on 03/17/2014 at [facility] Tissue - Non Human 05/17/2018 [id number] / / [id number] documented as of this encounter Visit Diagnoses Diagnosis Moderate late onset Alzheimer's dementia without behavioral disturbance, psychotic disturbance, mood disturbance, or anxiety (HCC)- Primary Other polyneuropathy Vascular parkinsonism (HCC) Paralysis agitans documented in this encounter Care Teams Iv Therapy Nurse Relationship Specialty Start Date End Date Kenn Bliss DO [address] [facility] [place] [address] PCP - General Family Medicine 01/20/18 documented as of this encounter
--- OUTSIDE RECORDS SUMMARY | 2023-10-11 08:26 | External Medical Summary | Summary of Care ---
Author Name Unknown Organization [facility] Address [address] [place] [address] Phone [phone] Care Team Providers Care Ship Design Teacher Name Role Phone Bliss Kenn Burrellcallie Primary Care Provider Reason for Visit * Reason Comments Other Procedure for NPH Encounter Details Date Type Department Care Team ([facility] st Contact Info) Description 08/07/2023 8:00 AM EDT Office Visit Neurosurgery, [place] [address], [place] [phone] Jhoana Booth PA-C [address] [place], [place] [phone] NPH (normal pressure hydrocephalus) ([facility]) [G91.2]* Allergies No known active allergiesdocumented as of this encounter (statuses as of 08/07/2023) Medications Medication Sig Dispensed Refills Start Date End Date Status Debrox 6.5 % Otic Solution (Carbamide Peroxide)Indications:B ilateral impacted cerumen Administer 5 Drops into the left ear in the morning and 5 Drops before bedtime. Fill ear canal and insert cotton plug. Remove plug after 15 to 30 minutes. For 2 weeks. 15 mL 0 04/19/2022 Active Acetaminophen 325 MG Oral Tablet (Tylenol) Take 2 Tablets by mouth every 4 hours as needed. 0 11/22/2022 Active Donepezil HCl 10 MG Oral Tablet (Aricept) Take 1 Tablet by mouth in the morning. Take with largest meal of the day.. 90 Tablet 3 12/23/2022 Active Additional Information Patient not taking.Reported on 05/19/2023 Melatonin 3 MG Oral Capsule Take 1 Capsule by mouth at bedtime. 0 Active Venlafaxine HCl ER 37.5 MG Oral Capsule Extended Release 24 Hour (Effexor XR) Take 1 Capsule by mouth in the morning. 30 Capsule 3 03/24/2023 Active Additional Information Patient not taking.Reported on 05/19/2023 B-12 1000 MCG Oral Capsule Take 1 Capsule by mouth in the morning. 90 Capsule 3 03/24/2023 Active QUEtiapine Fumarate 25 MG Oral Tablet (SEROquel)Indications: Memory change,Subarachnoid hemorrhage (HCC),Cerebral ventriculomegaly take 1 tablet by mouth at bedtime 90 Tablet 1 03/25/2023 Active Additional Information Patient not taking.Reported on 05/19/2023 Ondansetron HCl 4 MG Oral Tablet (Zofran) take 1 tablet by mouth every 8 hours if needed for nausea 20 Tablet 5 03/25/2023 Active Additional Information Patient not taking.Reported on 05/19/2023 Sildenafil Citrate 50 MG Oral Tablet take 1 tablet by mouth once daily if needed for ERECTILE DYSFUNCTION 30 Tablet 0 03/25/2023 Active Additional Information Patient not taking.Reported on 07/11/2023 methylPREDNISolone 4 MG Oral Tablet Therapy Pack (Medrol Dosepack) follow package directions 21 Tablet 0 04/18/2023 Active Additional Information Patient not taking.Reported on 05/19/2023 Modafinil 100 MG Oral Tablet (Provigil)Indications: Idiopathic hypersomnolence Take 1 Tablet by mouth in the morning. 30 Tablet 3 06/06/2023 Active Additional Information Patient not taking.Reported on 07/11/2023 Memantine HCl 5 MG Oral Tablet (Namenda) Take by mouth 1 tab daily week 1, 1 tab twice daily week 2, 2 tabs in am & 1 tab in pm week 3. 42 Tablet 0 06/18/2023 Active Additional Information Patient not taking.Reported on 07/11/2023 Memantine HCl 10 MG Oral Tablet (Namenda) Take 1 Tablet by mouth 2 times a day with morning and evening meals. WEEK 4 AND THEREAFTER 180 Tablet 3 06/18/2023 Active Additional Information Patient not taking.Reported on 07/11/2023 Pantoprazole Sodium 20 MG Oral Tablet Delayed Release (Protonix) Take 1 Tablet by mouth in the morning. 90 Tablet 1 07/11/2023 Active Additional Information Patient not taking.Reported on 08/07/2023 documented as of this encounter (statuses as of 08/07/2023) Active Problems Problem Noted Date Diagnosed Date [...] as of this encounter (statuses as of 08/07/2023) Resolved Problems Problem Noted Date Diagnosed Date Resolved Date Inguinal hernia, right 02/09/201402/05 Dyslipidemia, goal to be determined 04/13/2009 06/16/2014 Overview: Per Lipid Taxonomy. BILAT INGUINAL HERNIA 11/24/20032018 PURE HYPERCHOLESTEROLEM 11/10/200304/04 Overview: Per Lipid Taxonomy. documented as of this encounter (statuses as of 08/07/2023) Immunizations Name Administration Dates Next Due COVID-19 mRNA, LNP-s, No Pre serve, 2-Dose Series (STYLHUNT) 02/04/2021 COVID-19, LNP-s, No Preserve , Raghavendra-sucrose, [...] as of this encounter Progress Notes * Jhoana Booth PA-C - 08/07/2023 4:12 PM EDT PROCEDURE NOTE - Lumbar Puncture - Neurology Service [facility] [id number] Name: Angel Arevalo Location: D1 procedure room Date: 08/07/2023 Time: 4:12 PM PRIOR TO PROCEDURE: The patient was evaluated prior to the procedure. The patient was identified as Angel Arevalo, and the procedure verified as lumbar puncture. A Time Out was held and the following information confirmed. Verify Correct Patient: Yes Verify Correct Site: Yes Verify Procedure Matches Verbalized Consent: Yes Verify Correct Position: Yes Availability of Necessary Equipment: Yes Other Healthcare Professional(s) Verbalize(s) Agreement with Timeout: Yes Anticoagulation / Antiplatelet: No Site Marked: Yes Discussion was held with the patient concerning lumbar puncture. The risks and benefits were explained with possible risks to include local back pain, headache, bleeding, infection, neurological sequelea (herniation and/or paralysis), and tract formation/subarachnoid epidermal cyst. The patient freely signed the consent form. PROCEDURE NOTE: Procedure: Lumbar puncture - spinal tap Indication: NPH Food And Beverage Assistant Manager/Tooling Engineering Tech: HAZEL Lopez/Brayan Perez MD Complication/Corrective Action: None Comments/Findings: successful puncture DESCRIPTION OF THE PROCEDURE: Patient was placed in the lateral decubitus position with hips, knees and neck flexed. Landmarks identified. Patient prepped and draped in usual sterile fashion. Skin anesthetized with 1% lidocaine. Lumbar puncture performed using a 3.5 inch 22 gauge needle with stylet. Atraumatic tap was obtained on the 1st attempt. Opening pressure was 18.5 millimeters H2O. Approximately 40mL of clear fluid wasremoved in usual manner without any problems. Closing pressure was Closing pressure was 5 mm of water.. Stylet replaced and needle withdrawn. CSF was sent to lab for refer to lab orders (12) . Patient tolerated the procedure well. The patient was provided with written and verbal instructions. I performed the procedure. documented in this encounter Plan of Treatment Upcoming Encounters Date Type Department Care Team (Late st Contact Info) Description 09/17/2023 8:00 AM EDT Office Visit [facility] [place] [address] [facility] [place] [address] Kenn Bliss DO [address] [place] [address] Health Maintenance Due Date Last Done Comments COLONOSCOPY-EVERY 3 YRS AGES 18-100 09/24/2019 09/23/2016, 09/23/2016 COVID-19 Vaccine (2022- season) 2023 08/11/2021, 02/04/2021, 07/03/2020 Depression Screening [...] this encounter Medical Devices Implanted Type Area Senior Producer Device Identifier Shelf Expiration Date Model / Serial / Lot Bard Mesh Perfix Plug Implanted:Qty: 1 on 03/17/2014 at OR [facility] Tissue - Non Human 05/17/2018 [id number] / / [id number] documented as of this encounter Visit Diagnoses Diagnosis NPH (normal pressure hydrocephalus) (HCC) [G91.2]- Primary Idiopathic normal pressure hydrocephalus (INPH) documented in this encounter Care Teams Ship Design Teacher Relationship Specialty Start Date End Date Kenn Bliss DO [address] [place] [address] PCP - General Family Medicine 01/20/18 documented as of this encounter
--- OUTSIDE RECORDS SUMMARY | 2023-10-11 08:26 | External Medical Summary ---
Author Name Unknown Address Unknown Organization : Laboratory Report Ordering Provider Test Date Status MISAEL COUCH 08/11/2023 10:35:32 Final Observation Date Value Abnormality Reference (Units ) Status Homocysteine 08/11/2023 10:35:32 12.6 Above high normal <11.4 (umol/L) Final Homocysteine is increased by functional deficiency of
folate or vitamin B12. Testing for methylmalonic acid
differentiates between these deficiencies. Other causes
of increased homocysteine include renal failure, folate
antagonists such as methotrexate and phenytoin, and
exposure to nitrous oxide.
Fozia Gloria, et al. [employer] [facility]. 1999;131(5):331-9.

Test Performed at:
[facility]
[address] [facility] [facility]
[place] [address]
Dax Steven M.D., Ph.D.,Director of Laboratories Performing Location
--- OUTSIDE RECORDS SUMMARY | 2023-10-11 08:26 | External Medical Summary | Summary of Care ---
Author Name Unknown Organization [facility] Address [address] [place] [address] Phone [phone] Care Team Providers Care Grid Operator Name Role Phone Bliss Gaurav Burrellcallie Primary Care Provider Reason for Visit * Reason Comments Return Neuro Encounter Details Date Type Department Care Team ([facility] st Contact Info) Description 08/07/2023 8:00 AM EDT Office Visit Neurology, [place] [address] [place] [address] Wong Perez MD [address] [place] [address] Cerebral ventriculomegaly*; Dementia without behavioral disturbance, psychotic disturbance, mood disturbance, or anxiety, unspecified dementia severity, unspecified dementia type (HCC) Allergies No known active allergiesdocumented as [...] mRNA, LNP-s, No Pre serve, 2-Dose Series (Is[facility]) 02/04/2021 COVID-19, LNP-s, No Preserve , Raghavendra-sucrose, [...] on file documented as of this encounter Last Filed Vital Signs Vital Sign Reading Time Taken Comments Blood Pressure 98/68 08/07/2023 8:15 AM EDT Pulse 66 08/07/2023 8:15 AM EDT Temperature 36.1 C (96.9 F) 08/07/2023 8:15 AM ED T Respiratory Rate - - Oxygen Saturation 93% 08/07/2023 8:15 AM EDT Inhaled Oxygen Concentration - - Weight 85.9 kg (189 lb 6.4 oz) 08/07/2023 8:15 A M EDT Height 182.9 cm (6') 08/07/2023 8:15 AM EDT Body Mass Index 25.69 08/07/2023 8:15 AM EDT documented in this encounter Progress Notes * Wong Perez MD - 08/07/2023 9:52 AM EDT Neurology Outpatient New Visit Movement Disorders Subspecialty [facility] Ref: GAURAV BLISS[[id number]] [address] [place] [address] (office) [phone] (fax) PCP: GAURAV BLISS [address] [place] [address] [phone] History provided by: patient and family, - Hayley History of Present Illness: Mr. Angel Arevalo is a 73 year old RH male, who presents on 08/07/2023 for the Chief Complaint Patient presents with Return Neuro Per - he had a fall while hiking 11/24 - then he saw the memory - 12/25 - inability to do things, log into computer, isolating himself. Looking back - balance issues since 2018. H/o neuropathy. [facility] Visits Pre-LP Post - LP Date 08/07/2023 Time 8:05 AM 11:20 am 1st TUG 30 - he forgot to turn at 10 feet 18.11 2nd TUG 60 - he forgot to turn at 10 f 19.23 3rd TUG 15 - he was reminded at 10 f to go back and sit 23 Average Comments He needs reminders every time, what he needs to do. Gait is slight wide base, mild decreased arm swing He could turn this time w/o hint the first 2 times only, no need to remind him that, one time touch the wall, still unsteady; 3rd time he forgot when to turn. Romberg neg neg MMSE 16 UI yes Head Circ 58 OP 18.5 CP 5 CC removed 43 CSF Studies Pr, cells with diff , glucose, P- tau, Exposures to dopamine depleting medications: no recent studies. As per HPI otherwise all 14 systems reviewed and are negative. Current Outpatient Medications Medication Sig Dispense Refill Acetaminophen 325 MG Oral Tablet (Tylenol) Take 2 Tablets by mouth every 4 hours as needed. B-12 1000 MCG Oral Capsule Take 1 Capsule by mouth in the morning. 90 Capsule 3 Debrox 6.5 % Otic Solution (Carbamide Peroxide) Administer 5 Drops into the left ear in the morningand 5 Drops before bedtime. Fill ear canal and insert cotton plug. Remove plug after 15 to 30 minutes. For 2 weeks. 15 mL 0 Donepezil HCl 10 MG Oral Tablet (Aricept) Take 1 Tablet by mouth in the morning. Take with largest meal of the day.. (Patient not taking: Reported on 05/19/2023) 90 Tablet 3 Melatonin 3 MG Oral Capsule Take 1 Capsule by mouth at bedtime. (Patient not taking: Reported on 05/19/2023) Venlafaxine HCl ER 37.5 MG Oral Capsule Extended Release 24 Hour (Effexor XR) Take 1 Capsule by mouth in the morning. (Patient not taking: Reported on 05/19/2023) 30 Capsule 3 QUEtiapine Fumarate 25 MG Oral Tablet (SEROquel) take 1 tablet by mouth at bedtime (Patient not taking: Reported on 05/19/2023) 90 Tablet 1 Ondansetron HCl 4 MG Oral Tablet (Zofran) take 1 tablet by mouth every 8 hours if needed for nausea(Patient not taking: Reported on 05/19/2023) 20 Tablet 5 Sildenafil Citrate 50 MG Oral Tablet take 1 tablet by mouth once daily if needed for ERECTILE DYSFUNCTION (Patient not taking: Reported on 07/11/2023) 30 Tablet 0 methylPREDNISolone 4 MG Oral Tablet Therapy Pack (Medrol Dosepack) follow package directions (Patient not taking: Reported on 05/19/2023) 21 Tablet 0 Modafinil 100 MG Oral Tablet (Provigil) Take 1 Tablet by mouth in the morning. (Patient not taking:Reported on 07/11/2023) 30 Tablet 3 Memantine HCl 5 MG Oral Tablet (Namenda) Take by mouth 1 tab daily week 1, 1 tab twice daily week 2, 2 tabs in am & 1 tab in pm week 3. (Patient not taking: Reported on 07/11/2023) 42 Tablet 0 Memantine HCl 10 MG Oral Tablet (Namenda) Take 1 Tablet by mouth 2 times a day with morning and evening meals. WEEK 4 AND THEREAFTER (Patient not taking: Reported on 07/11/2023) 180 Tablet 3 Pantoprazole Sodium 20 MG Oral Tablet Delayed Release (Protonix) Take 1 Tablet by mouth in the morning. (Patient not taking: Reported on 08/07/2023) 90 Tablet 1 No current facility-administered medications for this visit. Past Medical History: Diagnosis Date BILAT INGUINAL HERNIA 11/24/2003 Inguinal hernia, right 02/09/2014 NO KNOWN PROBLEMS Family History Problem Relation Age of Onset Hypertension Father Stroke Father age 72 Mental retardation Sister Heart Disorder Brother pacemaker Arthritis Grandfather (Maternal) Heart Disorder Grandfather (Paternal) in 60's Social History Tobacco Use Smoking Status Never Smokeless Tobacco Never Social History Substance and Sexual Activity Alcohol Use Yes Comment: 1.5 beers a day Social History Substance and Sexual Activity Drug Use Yes Types: Marijuana Comment: once a year Review of patient's allergies indicates: No Known Allergies Filed Vitals: 08/07/23 0815 BP: 98/68 Pulse: 66 Temp: 36.1 C (96.9 F) TempSrc: Tympanic SpO2: 93% Weight: 85.9 kg (189 lb 6.4 oz) Height: 1.829 m (6') Examination: Gen: well-developed, well-nourished. Resp: breathing nonlabored on room air. MMSE: 16/30. CN: Visual allison intact. EOMI, no nystagmus. Face symmetric. No clear hypomimia. no hypophonia. Hard of hearing yes. Tongue protrudes midline. Shoulder shrug symmetric. Motor: strength normal, tone slight increased, bulk intact, tremor not present. Finger taps with foot and heel taps w/o clear decremental response. Coordination: [id number] without dysmetria bilaterally. Some issues in LE with dysmetria. Rapidalternating movements some hesitations on the L. Reflexes: DTRs symmetric: 0/2. Gait: Able to arise from chair with using arms. Posture upright. Gait is unsteady, with slight increased base, decreased arm swing. No tremor while walking. Imaging: increased ventricles. Vit D Metabolism Labs No results found for: "PHOS" Calcium Date Value Ref Range Status 03/11/2023 9.5 8.4 - 10.2 mg/dL Final 12/02/2022 9.7 8.4 - 10.2 mg/dL Final 02/09/2019 9.8 8.4 - 10.2 mg/dL Final 01/20/2018 9.3 8.4 - 10.2 mg/dL Final No results found for: "PTH" No results found for: "YTNM33YDS3" No results found for: "[id number]" No results found for: "[id number]" 25OH VITAMIN D TOTAL (ng/mL) Date Value 02/09/2019 27 01/20/2018 33 02/07/2016 33 Vitamin D Level Interpretation deficient: <20 ng/ml insufficient: 20-30 ng/ml normal: 31-100 ng/ml Vitamin Labs Vitamin B12 Date Value Ref Range Status 03/11/2023 372 232 - 1,245 pg/mL Final 11/15/2019 639 232 - 1,245 pg/mL Final Methylmalonic Acid Date Value Ref Range Status 11/14/2022 164 87 - 318 nmol/L Final Comment: This test was developed and its analytical performance characteristics have been determined by [facility] [place], [place]. It has not been cleared or approved by the U.S. Food and Drug Administration. This assay has been validated pursuant to the CLIA regulations and is used for clinical purposes. Test Performed at: [facility] [place] [address] [place] [address] Dax Steven M.D., Ph.D.,Director of Laboratories No results found for: "HOMOCYS" No results found for: "FOLATE" Immunologic, Endocrinologic & Infectious Labs No results found for: "ESR" No results found for: "LOW SENSITIVITY CRP" TSH Date Value Ref Range Status 03/11/2023 2.26 0.27 - 4.20 uIU/mL Final 11/14/2022 2.23 0.27 - 4.20 uIU/mL Final 02/09/2019 2.46 0.27 - 4.2 uIU/mL Final 07/19/2015 1.91 0.27 - 4.2 uIU/mL Final Miscellaneous Labs No results found for: "COPPER" No results found for: "CERULO" Ferritin Date Value Ref Range Status 11/15/2019 80.4 30 - 400 ng/mL Final 01/20/2018 94.1 30 - 400 ng/mL Final No results found for: "MANGANESE" No results found for: "LITHIUM" No results found for: "VALPROIC" No results found for: "FREE VALPROIC" No results found for: "MYCODE" Impression & Plan: Cerebral ventriculomegaly (Primary)/ Dementia without behavioral disturbance, psychotic disturbance, mood disturbance, or anxiety, unspecified dementia severity, unspecified dementia type (HCC) Per family his main issue is the ability to function. He does not know to do basic things. He does have balance issues, but he forgets to turn on time. After the large volume spinal tap - he was ableto do to walks w/o reminding him, but the 3rd, he forgot. I am not sure what to make of that. In the past, a similar case, when I had to remind them to turn, the neurovegetative markers came back positive. The balance issue can be explain by h/o neuropathy. It is concerning that MMSE is worse this time since last visit. - ADMARK(R)PHOSPHO-TAU/TOTAL-TAU/A BETA42,INTERP,CSF - GLUCOSE, CSF - PROTEIN, CSF - SPINAL FLUID TAP,DIAGNOSTIC - CULTURE, CSF, AEROBIC AND ANAEROBIC - CELL COUNT WITH DIFFERENTIAL, CSF - PRIOR marker - HOMOCYSTEINE - VITAMIN B6, PLASMA - VITAMIN C; Future; Expected date: 08/07/2023 - VITAMIN E (TOCOPHEROL) - VITAMIN B1 (THIAMINE), BLOOD, LC/MS/MS; Future; Expected date: 08/07/2023 - CERULOPLASMIN - COPPER, SERUM OR PLASMA; Future; Expected date: 08/07/2023 08/07/2023 MMSE 16/30 05/19/2023 MMSE 21/30 12/10/2021 MMSE /08/25/2020 MMSE Keep the appt with Memory Dr. During this visit, total time spent taking the history and physical exam (when possible), reviewingthe labs when necessary, prior medical records, and documenting the current chart 45 min > 50% spent on counseling - regarding possible differential diagnosis, investigation methods, what to do inthe future, and potential treatment options. Please be aware of any errors regarding the spelling or even different words, probably due to the dictation, using the Modal Fluency Direct. documented in this encounter Plan of Treatment Upcoming Encounters Date Type Department Care Team (Late st Contact Info) Description 09/17/2023 8:00 AM EDT Office Visit [facility] [address] [place] [address] Gaurav Bliss DO [address] [place] [address] Pending Results Name Type Priority Associated Diagnoses Date /Time ADMARK(R)PHOSPHO-TAU/T OTAL-TAU/A BETA42,INTERP,CSF Lab Routine Cerebral ventriculomegaly 08/07/2023 9:35 AM EDT CULTURE, CSF, AEROBIC AND ANAEROBIC Lab Routine Cerebral ventriculomegaly 08/07/2023 9:35 AM EDT Scheduled Orders Name Type Priority Associated Diagnoses Orde r Schedule SPINAL FLUID TAP,DIAGNOSTIC Procedures Routine Cerebral ventriculomegaly Ordered: 08/07/2023 HOMOCYSTEINE Lab Routine Cerebral ventriculomegaly Dementia without behavioral disturbance, psychotic disturbance, mood disturbance, or anxiety, unspecified dementia severity, unspecified dementia type (HCC) Ordered: 08/07/2023 VITAMIN B6, PLASMA Lab Routine Cerebral ventriculomegaly Dementia without behavioral disturbance, psychotic disturbance, mood disturbance, or anxiety, unspecified dementia severity, unspecified dementia type (HCC) Ordered: 08/07/2023 VITAMIN C Lab Routine Cerebral ventriculomegaly Dementia without behavioral disturbance, psychotic disturbance, mood disturbance, or anxiety, unspecified dementia severity, unspecified dementia type (HCC) Expected: 08/07/2023, Expires: 08/06/2024 VITAMIN E (TOCOPHEROL) Lab Routine Cerebral ventriculomegaly Dementia without behavioral disturbance, psychotic disturbance, mood disturbance, or anxiety, unspecified dementia severity, unspecified dementia type (HCC) Ordered: 08/07/2023 VITAMIN B1 (THIAMINE), BLOOD, LC/MS/MS Lab Routine Cerebral ventriculomegaly Dementia without behavioral disturbance, psychotic disturbance, mood disturbance, or anxiety, unspecified dementia severity, unspecified dementia type (HCC) Expected: 08/07/2023, Expires: 08/06/2024 CERULOPLASMIN Lab Routine Cerebral ventriculomegaly Dementia without behavioral disturbance, psychotic disturbance, mood disturbance, or anxiety, unspecified dementia severity, unspecified dementia type (HCC) Ordered: 08/07/2023 COPPER, SERUM OR PLASMA Lab Routine Cerebral ventriculomegaly Dementia without behavioral disturbance, psychotic disturbance, mood disturbance, or anxiety, unspecified dementia severity, unspecified dementia type (HCC) Expected: 08/07/2023 (Approximate), Expires: 11/06/2023 14-3-3 PROTEIN, CSF (PRION DISEASE) Lab Routine Cerebral ventriculomegaly Dementia without behavioral disturbance, psychotic disturbance, mood disturbance, or anxiety, unspecified dementia severity, unspecified dementia type (HCC) Expected: 08/07/2023, Expires: 08/06/2024 Health Maintenance Due Date Last Done Comments COLONOSCOPY-EVERY 3 YRS AGES 18-100 09/24/2019 09/23/2016, 09/23/2016 COVID-19 Vaccine ( - 2022-24 season) 2023 08/11/2021, 02/04/2021, 07/03/2020 Depression Screening [...] encounter Medical Devices Implanted Type Area Senior Mechanical Engineer Device Identifier Shelf Expiration Date Model / Serial / Lot Bard Mesh Perfix Plug Implanted:Qty: 1 on 03/17/[address] [facility] Tissue - Non Human 05/17/2018 [id number] / / [id number] documented as of this encounter Procedures Procedure Name Priority Date/Time Associated Diagnosis Comments MANUAL DIFFERENTIAL, CSF Routine 08/07/2023 9:56 AM EDT Cerebral ventriculomegaly CELL COUNT WITH DIFFERENTIAL, CSF Routine 08/07/2023 9:56 AM EDT Cerebral ventriculomegaly CELL COUNT, CSF Routine 08/07/2023 9:56 AM EDT Cerebral ventriculomegaly CULTURE, CSF, AEROBIC AND ANAEROBIC Routine 08/07/2023 9:35 AM EDT Cerebral ventriculomegaly PROTEIN, CSF Routine 08/07/2023 9:35 AM EDT Cerebral ventriculomegaly GLUCOSE, CSF Routine 08/07/2023 9:35 AM EDT Cerebral ventriculomegaly documented in this encounter Results * MANUAL DIFFERENTIAL, CSF (08/07/2023 9:56 AM EDT) Total Nucleated Cell Count, CSF 1 cells/uL 08/07/2023 11:32 AM EDT [facility] Lymphocytes % 67 40 - 80 % 08/07/2023 11:32 AM EDT [facility] Monocytes % 33 15 - 45 % 08/07/2023 11:32 AM EDT [facility] Absolute Lymphocytes 0.67 cells/uL 08/07/2023 11:32 AM EDT [facility] Absolute Monocytes 0.33 cells/uL 08/07/2023 11:32 AM EDT [facility] Cerebrospinal Fluid Cerebrospinal fluid specimen / Unknown Non-blood Collection / Unknown 08/07/2023 9:56 AM EDT 08/07/2023 10:56 AM EDT Narrative [facility] - 08/07/2023 11:32 AM EDT Some reference ranges and other method performance specifications have not been established for this fluid. The test results must be integrated into the clinical context for interpretation. Wong Perez MD LAB FLUID AND STOOL ORDERABLES Performing Organization Address [facility] de Phone Number [facility]ATORY [facility] [address] [place] [address] * CELL COUNT, CSF (08/07/2023 9:56 AM EDT) Color, CSF Colorless Colorless 08/07/2023 11:31 AM EDT [facility] Clarity, CSF Clear Clear 08/07/2023 11:31 AM EDT [facility] Color, Supernatant CSF Colorless Colorless 08/07/2023 11:31 AM EDT [facility] Tube Number, CSF 3 08/07/2023 11:31 AM EDT [facility] Total Nucleated Cell Count, CSF 1 <5 cells/uL 08/07/2023 11:31 AM EDT [facility] RBC, CSF 0 <5 cells/uL 08/07/2023 11:31 AM EDT [facility] Cerebrospinal Fluid Cerebrospinal fluid specimen / Unknown Non-blood Collection / Unknown 08/07/2023 9:56 AM EDT 08/07/2023 10:56 AM EDT Narrative [facility] - 08/07/2023 11:31 AM EDT Some reference ranges and other method performance specifications have not been established for this fluid. The test results must be integrated into the clinical context for interpretation. Wong Perez MD LAB FLUID AND STOOL ORDERABLES Performing Organization Address [facility] de Phone Number LAB[facility]ATORY [facility] [address] [place] [address] * (ABNORMAL) PROTEIN, CSF (08/07/2023 9:35 AM EDT) Protein, CSF 50(H) 15 - 45 mg/dL 08/07/2023 10:57 AM EDT [facility] Cerebrospinal Fluid Non-blood Collection / Unknown 08/07/2023 9:35 AM EDT 08/07/2023 10:21 AM EDT Wong Perez MD LAB FLUID AND STOOL ORDERABLES [facility]ORY [facility] [address] [place] [address] * GLUCOSE, CSF (08/07/2023 9:35 AM EDT) Glucose, CSF 69 45 - 70 mg/dL 08/07/2023 10:[address] [facility] Cerebrospinal Fluid Non-blood Collection / Unknown 08/07/2023 9:35 AM EDT 08/07/2023 10:21 AM EDT Narrative [facility] - 08/07/2023 10:57 AM EDT Normal CSF Glucose concentration should be approximately 60% of plasma/serum glucose value. Wong ePrez MD LAB FLUID AND STOOL ORDERABLES Performing Organization Address City/[facility] Co de Phone Number LAB[facility]ATORY [facility] [address] [place] [address] documented in this encounter Visit Diagnoses Diagnosis Cerebral ventriculomegaly- Primary Other conditions of brain Dementia without behavioral disturbance, psychotic disturbance, mood disturbance, or anxiety, unspecified dementia severity, unspecified dementia type (HCC) documented in this encounter Care Teams Grid Operator Relationship Specialty Start Date End Date Gaurav Bliss DO [address] [place] [address] PCP - General Family Medicine 01/20/18 documented as of this encounter
--- OUTSIDE RECORDS SUMMARY | 2023-10-11 08:26 | External Medical Summary | Summary of Care ---
Author Name Unknown Organization [facility] Address [address] [place] [address] Phone [phone] Care Team Providers Care Record Center Specialist Name Role Phone Kenn Bliss DO Primary Care Provider Encounter Details Date Type Department Care Team (Late st Contact Info) Description 08/09/2023 Orders Only PATIENT PORTAL DO NOT DELETE THIS DEPT USED BY [place] [facility] [id number] Allergies No known active allergiesdocumented as of this encounter (statuses as of 08/09/2023) Medications Medication Sig Dispensed Refills Start Date [...] as of this encounter (statuses as of 08/09/2023) Active Problems Problem Noted Date Diagnosed Date [...] as of this encounter (statuses as of 08/09/2023) Resolved Problems Problem Noted Date Diagnosed Date Resolved Date Inguinal hernia, right 02/09/201402/05 Dyslipidemia, goal to be determined 04/13/2009 06/16/2014 Overview: Per Lipid Taxonomy. BILAT INGUINAL HERNIA 11/24/20032018 PURE HYPERCHOLESTEROLEM 11/10/200304/04 Overview: Per Lipid Taxonomy. documented as of this encounter (statuses as of 08/09/2023) Immunizations Name Administration Dates Next Due COVID-19 [...] on file documented as of this encounter Plan of Treatment Upcoming Encounters Date Type Department Care Team (Late st Contact Info) Description 09/17/2023 8:00 AM EDT Office Visit [facility] [address] [facility] [place] [address] Kenn Bliss, [address] [place] [address] Health Maintenance Due Date Last Done Comments COLONOSCOPY-EVERY 3 YRS AGES 18-100 09/24/2019 09/23/2016, 09/23/2016 COVID-19 Vaccine (4 - 2022-24 season) 2023 08/11/2021, 02/04/2021, 07/03/2020 [...] this encounter Medical Devices Implanted Type Area Spreader Box Operator Device Identifier Shelf Expiration Date Model / Serial / Lot Bard Mesh Perfix Plug Implanted:Qty: 1 on 03/17/2014 at OR [facility] Tissue - Non Human 05/17/2018 [id number] / / [id number] documented as of this encounter Additional Health Concerns Infection Onset Date Last Indicated Resolved Time Prion Rule-Out 08/07/2023 08/07/2023 documented as of this encounter Care Teams Record Center Specialist Relationship Specialty Start Date End Date Kenn Bliss DO [address] [place] [address] PCP - General Family Medicine 01/20/18 documented as of this encounter
--- OUTSIDE RECORDS SUMMARY | 2023-10-11 08:26 | External Medical Summary ---
Author Name Unknown Address Unknown Organization : Laboratory Report Ordering Provider Test Date Status MISAEL COUCH 08/11/2023 10:35:32 Final Observation Date Value Abnormality Reference (Units ) Status Pyridoxal phosphate [Mass/volume] in Serum or Plasma 08/11/2023 10:35:32 7.0 2.1-21.7 (ng/mL) Final Vitamin supplementation with in 24 hours prior to
blood draw may affect the accuracy of the results.
This test was developed and its analytical performance
characteristics have been determined by [facility] [place]. It has
not been cleared or approved by the U.S. Food and Drug
Administration. This assay has been validated pursuant
to the CLIA regulations and is used for clinical
purposes.

Test Performed at:
[facility]
[address] [address] [facility] [place] [address]
Dax Steven M.D., Ph.D.,Director of Laboratories Performing Location
--- OUTSIDE RECORDS SUMMARY | 2023-10-11 08:26 | External Medical Summary ---
Author Name Unknown Address Unknown Organization : Laboratory Report Ordering Provider Test Date Status CELINA COUCHGIN 08/11/2023 10:35:32 Final Observation Date Value Abnormality Reference (Units ) Status Ceruloplasmin 08/11/2023 10:35:32 36 18-36 (mg/dL) Final
Test Performed at:
[facility]
[address] [place] [address]
[place] [address]
Dax Steven M.D., Ph.D.,Director of Laboratories Performing Location
--- OUTSIDE RECORDS SUMMARY | 2023-10-11 08:26 | External Medical Summary ---
Author Name Unknown Address Unknown Organization K01:[facility]ATORY [place] [address] [place] [address] Laboratory Report Ordering Provider Test Date Status MISAEL COUCH 08/07/2023 09:56:00 Final Some reference ranges and ot her method performance specifications have not been established for this fluid. The test results must be integrated into the clinical context for interpretation. Observation Date Value Abnormality Reference (Units ) Status CSF, color 08/07/2023 09:56:00 Colorless Colorless Final CSF, clarity 08/07/2023 09:56:00 Clear Clear Final Color of Spun Cerebral spinal fluid 08/07/2023 09:56:00 Colorless Colorless Final Tube number of Cerebral spinal fluid 08/07/2023 09:56:00 3 Final Nucleated cells [#/volume] in Body fluid by Automated count 08/07/2023 09:56:00 1 <5 (cells/uL) Final Erythrocytes [#/volume] in Cerebral spinal fluid 08/07/2023 09:56:00 0 <5 (cells/uL) Final Performing Location [facility] [address] [place] [address]
--- OUTSIDE RECORDS SUMMARY | 2023-10-11 08:26 | External Medical Summary ---
Author Name Unknown Address Unknown Organization K01:[facility] [address] [place] [address] Laboratory Report Ordering Provider Test Date Status MISAEL COUCH 08/07/2023 09:35:00 Final Observation Date Value Abnormality Reference (Units ) Status Protein, CSF 08/07/2023 09:35:00 50 Above high normal 15-45 (mg/dL) Final Performing Location [facility] [address] [place] [address]
--- OUTSIDE RECORDS SUMMARY | 2023-10-11 08:26 | External Medical Summary | Summary of Care ---
Author Name Unknown Organization [facility] Address [address] [place] [address] Phone [phone] Care Team Providers Care Agricultural Produce Commission Agent Name Role Phone Bliss Kenn Burrellcallie Primary Care Provider Reason for Visit * Reason Onset Date Comments Follow Up 09/03/2023 Encounter Details Date Type Department Care Team ([facility] st Contact Info) Description 09/03/2023 Telephone Neurology, [place] [address] [place] [address] Mayra Hamm LPN [address] [place] [address] Follow Up Allergies No known active allergiesdocumented as of this encounter (statuses as of 09/03/2023) Medications Medication Sig Dispensed Refills Start Date End Date Status Debrox 6.5 % Otic Solution (Carbamide Peroxide)Indication s:Bilateral impacted cerumen Administer 5 Drops into the left ear in the morning and 5 Drops before bedtime. Fill ear canal and insert cotton plug. Remove plug after 15 to 30 minutes. For 2 weeks. 15 mL 0 04/19/2022 Active Acetaminophen 325 MG Oral Tablet (Tylenol) Take 2 Tablets by mouth every 4 hours as needed. 0 11/22/2022 Active B-12 1000 MCG Oral Capsule Take 1 Capsule by mouth in the morning. 90 Capsule 3 03/24/2023 Active documented as of this encounter (statuses as of 09/03/2023) Active Problems Problem Noted Date Diagnosed Date [...] as of this encounter (statuses as of 09/03/2023) Resolved Problems Problem Noted Date Diagnosed Date Resolved Date Inguinal hernia, right 02/09/201402/05 Dyslipidemia, goal to be determined 04/13/2009 06/16/2014 Overview: Per Lipid Taxonomy. BILAT INGUINAL HERNIA 11/24/20032018 PURE HYPERCHOLESTEROLEM 11/10/200304/04 Overview: Per Lipid Taxonomy. documented as of this encounter (statuses as of 09/03/2023) Immunizations Name Administration Dates Next Due COVID-19 [...] on file documented as of this encounter Miscellaneous Notes * Telephone Encounter - Wong Perez MD - 09/03/2023 1:47 PM EDT In this case, no, we do not need to see him back. * Telephone Encounter - Mayra Hamm LPN - 09/03/2023 11:43 AM EDT Spoke with Hayley, patient was not any better after the spinal tap She already saw Dr. Sanchez * Telephone Encounter - Mayra Hamm LPN - 09/03/2023 11:41 AM EDT ----- Message from Wong Perez MD sent at 09/03/2023 10:34 AM EDT ----- This study is inconclusive. The markers are neither positive nor negative for AD. What was he doingafter the spinal tap? documented in this encounter Plan of Treatment Upcoming Encounters Date Type Department Care Team (Late st Contact Info) Description 09/17/2023 8:00 AM EDT Office Visit Family Practice [facility] [address] [place] [address] Kenn Bliss DO [address] [place] [address] 03/05/2024 11:00 AM EDT Office Visit Neurology [facility] [address] [facility] [address] Chelly Barth CRNP [address] [facility] [place] [id number] 06/08/2024 8:45 AM EST Telemedicine Neurology, [place] [address] [facility] [address] [place] [address] Madie Sanchez MD [address] [place] [address] [place] [address] Health Maintenance Due Date Last Done Comments Colonoscopy 09/24/2019 09/23/2016, 09/23/2016 COVID-19 Vaccine (4 - [...] this encounter Medical Devices Implanted Type Area Pattern Keeper Device Identifier Shelf Expiration Date Model / Serial / Lot Bard Mesh Perfix Plug Implanted:Qty: 1 on 03/17/2014 at OR [facility] Tissue - Non Human 05/17/2018 [id number] / / [id number] documented as of this encounter Care Teams Agricultural Produce Commission Agent Relationship Specialty Start Date End Date Kenn Bliss DO [address] [place] [address] PCP - General Family Medicine 01/20/18 documented as of this encounter
--- OUTSIDE RECORDS SUMMARY | 2023-10-11 08:26 | External Medical Summary ---
Author Name Unknown Address Unknown Organization : Laboratory Report Ordering Provider Test Date Status MISAEL COUCH 08/11/2023 10:35:32 Final Observation Date Value Abnormality Reference (Units ) Status Thiamine [Moles/volume] in Blood 08/11/2023 10:35:32 132 78-185 (nmol/L) Final Vitamin supplementation with in 24 hours prior to
blood draw may affect the accuracy of the results.
This test was developed and its analytical performance
characteristics have been determined by [facility] [place], [place]. It has
not been cleared or approved by the U.S. Food and Drug
Administration. This assay has been validated pursuant
to the CLIA regulations and is used for clinical
purposes.

Test Performed at:
[facility]
[address] [facility]
[place] [address]
Dax Steven M.D., Ph.D.,Director of Laboratories Performing Location
--- OUTSIDE RECORDS SUMMARY | 2023-10-11 08:26 | External Medical Summary ---
Author Name Unknown Address Unknown Organization : Laboratory Report Ordering Provider Test Date Status MISAEL COUCH 08/07/2023 09:35:00 Final Observation Date Value Abnormality Reference (Units ) Status LIKELIHOOD OF PRION DISEASE 08/07/2023 09:35:00 SEE BELOW Final <0.2 % RT-QUIC (CSF)* 08/07/2023 09:35:00 SEE BELOW Final Negative Negative
*RT-Qu IC identifies the disease-causing agent T-TAU PROTEIN (CSF)++ 08/07/2023 09:35:00 SEE BELOW Final 415 0-1149 pg/mL 14-3-3 GAMMA (CSF)++ 08/07/2023 09:35:00 SEE BELOW Final 7294 <173-1999 AU/mL
++ indirect markers of neurodegenerative disease COMMENT 08/07/2023 09:35:00 SEE BELOW Final These tests, together or isabela ne, must not be used to exclude prion
disease. A definitive diagnosis of prion disease can only be given
after thorough examination of autopsy brain tissue. If prion disease
is still suspected, the [facility] is able to offer a no-cost autopsy
to determine whether or not prions are the cause of disease. [facility]
staff ([phone]) are available to work with healthcare providers
and the patient's family to plan an autopsy, if desired.
Disclaimer:
These tests were developed and their performance characteristics
determined by the [facility], and have not been cleared or approved by
the FDA. These assays should be used in conjunction with other
clinical, pathological and laboratory findings.
Test Performed at:
[facility])
[address] [facility] [facility]
[place], [place] [address]

Nutrition Services Aide: Mario Grady, PhD Performing Location
--- OUTSIDE RECORDS SUMMARY | 2023-10-11 08:26 | External Medical Summary ---
Author Name Unknown Address Unknown Organization K01:[facility] - [address] [place] [address] Laboratory Report Ordering Provider Test Date Status MISAEL COUCH 08/07/2023 09:35:00 Final Normal CSF Glucose concentra tion should be approximately 60% of plasma/serum glucose value.
null Observation Date Value Abnormality Reference (Units ) Status Glucose, CSF 08/07/2023 09:35:00 69 45-70 ( mg/dL) Final Performing Location [facility] - [address] [place] [address]
--- OUTSIDE RECORDS SUMMARY | 2023-10-11 08:26 | External Medical Summary ---
Author Name Unknown Address Unknown Organization K01:[facility] - [address] [place] [address] Laboratory Report Ordering Provider Test Date Status MISAEL COUCH 08/07/2023 09:56:00 Final Some reference ranges and ot her method performance specifications have not been established for this fluid. The test results must be integrated into the clinical context for interpretation. Observation Date Value Abnormality Reference (Units ) Status SYNC TOTAL NUCLEATED CELLS, CSF 08/07/2023 09:56:00 1 (cells/uL) Final Lymphocytes/100 leukocytes in Cerebral spinal fluid 08/07/2023 09:56:00 67 40-80 (%) Final Monocytes/100 leukocytes in Cerebral spinal fluid 08/07/2023 09:56:00 33 15-45 (%) Final Lymphocytes [#/volume] in Cerebral spinal fluid 08/07/2023 09:56:00 0.67 (cells/uL) Final Monocytes [#/volume] in Cerebral spinal fluid 08/07/2023 09:56:00 0.33 (cells/uL) Final Performing Location [facility] [address] [place] [address]
--- OUTSIDE RECORDS SUMMARY | 2023-10-11 08:26 | External Medical Summary | Summary of Care ---
Author Name Unknown Organization [facility] Address [address] [place] [address] Phone [phone] Care Team Providers Care Can Repairer Name Role Phone Kenn Bliss DO Primary Care Provider Reason for Visit * Reason Comments Outpatient Testing Encounter Details Date Type Department Care Team (Late st Contact Info) Description 08/11/2023 11:00 AM EDT Laboratory Laboratory [facility] [address] [facility] [place] [phone] [place], [address] [place] [address] Cerebral ventriculomegaly; Dementia without behavioral disturbance, psychotic disturbance, mood disturbance, or anxiety, unspecified dementia severity, unspecified dementia type (HCC) Allergies No known active allergiesdocumented as of this encounter (statuses as of 08/11/2023) Medications Medication Sig Dispensed Refills Start Date [...] as of this encounter (statuses as of 08/11/2023) Active Problems Problem Noted Date Diagnosed Date [...] as of this encounter (statuses as of 08/11/2023) Resolved Problems Problem Noted Date Diagnosed Date Resolved Date Inguinal hernia, right 02/09/201402/05 Dyslipidemia, goal to be determined 04/13/2009 06/16/2014 Overview: Per Lipid Taxonomy. BILAT INGUINAL HERNIA 11/24/20032018 PURE HYPERCHOLESTEROLEM 11/10/200304/04 Overview: Per Lipid Taxonomy. documented as of this encounter (statuses as of 08/11/2023) Immunizations Name Administration Dates Next Due COVID-19 mRNA, LNP-s, No Pre serve, 2-Dose Series (OPTIMIZERx) 02/04/2021 COVID-19, LNP-s, No Preserve , Raghavendra-sucrose, [...] 8:00 AM EDT Office Visit Family Practice [facility] [address] [place] [address] Kenn Bliss DO [address] [place] [address] Pending Results Name Type Priority Associated Diagnoses Date /Time VITAMIN C Lab Routine Cerebral ventriculomegaly Dementia without behavioral disturbance, psychotic disturbance, mood disturbance, or anxiety, unspecified dementia severity, unspecified dementia type (HCC) 08/11/2023 10:35 AM EDT VITAMIN B1 (THIAMINE), BLOOD, LC/MS/MS Lab Routine Cerebral ventriculomegaly Dementia without behavioral disturbance, psychotic disturbance, mood disturbance, or anxiety, unspecified dementia severity, unspecified dementia type (HCC) 08/11/2023 10:35 AM EDT COPPER, SERUM OR PLASMA Lab Routine Cerebral ventriculomegaly Dementia without behavioral disturbance, psychotic disturbance, mood disturbance, or anxiety, unspecified dementia severity, unspecified dementia type (HCC) 08/11/2023 10:35 AM EDT Health Maintenance Due Date Last Done Comments [...] this encounter Medical Devices Implanted Type Area Deck Molder Device Identifier Shelf Expiration Date Model / Serial / Lot Bard Mesh Perfix Plug Implanted:Qty: 1 on 03/17/2014 at OR [facility] Tissue - Non Human 05/17/2018 [id number] / / [id number] documented as of this encounter Visit Diagnoses Diagnosis Cerebral ventriculomegaly Other conditions of brain Dementia without behavioral disturbance, psychotic disturbance, mood disturbance, or anxiety, unspecified dementia severity, unspecified dementia type (HCC) documented in this encounter Additional Health Concerns Infection Onset Date Last Indicated Resolved Time Prion Rule-Out 08/07/2023 08/07/2023 documented as of this encounter Care Teams Can Repairer Relationship Specialty Start Date End Date Kenn Bliss DO [address] [place] [address] PCP - General Family Medicine 01/20/18 documented as of this encounter
--- OUTSIDE RECORDS SUMMARY | 2023-10-11 08:26 | External Medical Summary ---
Author Name Unknown Address Unknown Organization K01:LAB[facility]ATORY [facility] [address] [place] [address] Laboratory Report Ordering Provider Test Date Status MISAEL COUCH 08/07/2023 09:35:00 Final Observation Date Value Abnormality Reference (Units) Status Bacteria identified in Specimen by Culture 08/07/2023 09:35:00 No aerobic or anaerobic growth Final Gram Stain 08/07/2023 09:35:00 No polymorphonuclear leukocytes seen Final Gram Stain 08/07/2023 09:35:00 No organisms seen Final Test: Culture, CSF, Aerobic and Anaerobic
Specimen Source: CSF, Lumbar puncture
Specimen Type: Cerebrospinal Fluid
Specimen Date: 08/07/2023 9:35 AM
Result Date: 08/14/2023 7:49 AM
Result Status: Final result
Resulting Lab: [facility]ORY [facility]
[address]
[place] [address]

CULTURE

No aerobic or anaerobic growth

STAIN

No polymorphonuclear leukocytes seen

No organisms seen

null Performing Location [facility]ATORY [facility] [address] [place] [address]
--- OUTSIDE RECORDS SUMMARY | 2023-10-11 08:26 | External Medical Summary | Summary of Care ---
Author Name Unknown Organization [facility] Address [address] [place] [address] Phone [phone] Care Team Providers Care Mechanic Insulator Name Role Phone Kenn Bliss DO Primary Care Provider Reason for Visit * Reason Comments Return Visit 6 month Encounter Details Date Type Department Care Team (Late st Contact Info) Description 09/17/2023 8:00 AM EDT Office Visit Family Practice [facility] [address] [place] [address] Kenn Bliss DO [address] [place] [address] Moderate dementia with other behavioral disturbance, unspecified dementia type (HCC)*; Dyslipidemia, goal LDL below 160; BPH without obstruction/lower urinary tract symptoms; Aneurysm of ascending aorta without rupture (HCC) Allergies No known active allergiesdocumented as of this encounter (statuses as of 09/17/2023) Medications Medication Sig Dispensed Refills Start Date [...] as of this encounter (statuses as of 09/17/2023) Active Problems Problem Noted Date Diagnosed Date [...] as of this encounter (statuses as of 09/17/2023) Resolved Problems Problem Noted Date Diagnosed Date Resolved Date Inguinal hernia, right 02/09/201402/05 Dyslipidemia, goal to be determined 04/13/2009 06/16/2014 Overview: Per Lipid Taxonomy. BILAT INGUINAL HERNIA 11/24/20032018 PURE HYPERCHOLESTEROLEM 11/10/200304/04 Overview: Per Lipid Taxonomy. documented as of this encounter (statuses as of 09/17/2023) Immunizations Name Administration Dates Next Due COVID-19 mRNA, LNP-s, No Pre serve, 2-Dose Series (Rewind Me) 02/04/2021 COVID-19, LNP-s, No Preserve , Raghavendra-sucrose, [...] Sign Reading Time Taken Comments Blood Pressure 108/68 09/17/2023 8:03 AM EDT Pulse 67 09/17/2023 8:03 AM EDT Temperature 35.9 C (96.6 F) 09/17/2023 8:03 AM ED T Respiratory Rate - - Oxygen Saturation 96% 09/17/2023 8:03 AM EDT Inhaled Oxygen Concentration - - Weight 86.8 kg (191 lb 6.4 oz) 09/17/2023 8:03 A M EDT Height - - Body Mass Index 25.96 08/07/2023 8:15 AM EDT documented in this encounter Progress Notes * Kenn Bliss, - 09/17/2023 8:06 AM EDT Images from the original note were not included. Assessment and Plan Moderate dementia with other behavioral disturbance, unspecified dementia type (HCC) Continue to follow with neurology And notify clinic of any needs Hayley is doing a good job caring for him And is very attentive Monitor affect, try PPI again, 4-6 weeks Dyslipidemia, goal LDL below 160 Not primary concern at this time monitor BPH without obstruction/lower urinary tract symptoms Stable but having some incontinence - worsening Aneurysm of ascending aorta without rupture (HCC) stable History of Present Illness Angel Arevalo is a 73 year old male that presents for Return Visit (6 month ) Patient presents today in follow-up. As with his partner Hayley. His dementia has been progressing slightly with more urinary incontinence. Unsure if he is getting restful sleep as he spends many daytime hours in bed as well. Is good natured, but ambulatory dysfunction has also progressed and has lack of feeling in feet. Physical Exam Vitals: 09/17/23 0803 Temp: 35.9 C (96.6 F) Pulse: 67 SpO2: 96% BP: 108/68 Physical Exam Constitutional: Appearance: Normal appearance. HENT: Head: Normocephalic and atraumatic. Eyes: Extraocular Movements: Extraocular movements intact. Pupils: Pupils are equal, round, and reactive to light. Neurological: Mental Status: He is alert. Mental status is at baseline. Sensory: Sensory deficit present. Motor: Weakness present. Coordination: Coordination abnormal. Gait: Gait abnormal. Psychiatric: Mood and Affect: Mood normal. Behavior: Behavior normal. Wrap-Up Follow Up: Return in about 1 year (around 09/16/2024). Time: Total time today was 42 minutes excluding any time spent in the performance of separately billed services. documented in this encounter Nursing Notes * Ericka Singh LPN - 09/17/2023 8:04 AM EDT The patient has been properly identified by confirmation of name and date of . Chief Complaint Patient presents with Return Visit 6 month documented in this encounter Plan of Treatment Upcoming Encounters Date Type Department Care Team (Late st Contact Info) Description 02/13/2024 1:20 PM EDT Office Visit Neurology [facility] [address] [place] [address] Chelly Barth CRNP [address] [facility] [place] [address] 06/08/2024 8:45 AM EST Telemedicine Neurology, [place] [address] [facility] [address] [place] [address] Madie Sanchez MD [address] [place] [address] [place] [address] 09/23/2024 1:00 PM EDT Office Visit Family Practice [facility] [address] [place] [address] Kenn Bliss DO [address] [place] [address] Health Maintenance Due Date Last Done Comments Colonoscopy 09/24/2019 09/23/2016, 09/23/2016 COVID-19 Vaccine (2022-24 season) 2023 08/11/2021, 02/04/2021, 07/03/2020 Depression Screening [...] this encounter Medical Devices Implanted Type Area Camp Director Device Identifier Shelf Expiration Date Model / Serial / Lot Bard Mesh Perfix Plug Implanted:Qty: 1 on 03/17/2014 at OR [facility] Tissue - Non Human 05/17/2018 [id number] / / [id number] documented as of this encounter Visit Diagnoses Diagnosis Moderate dementia with other behavioral disturbance, unspecified dementia type (HCC)- Primary Dyslipidemia, goal LDL below 160 Other and unspecified hyperlipidemia BPH without obstruction/lower urinary tract symptoms Hypertrophy of prostate without urinary obstruction and other lower urinary tract symptoms (LUTS) Aneurysm of ascending aorta without rupture (HCC) documented in this encounter Care Teams Mechanic Insulator Relationship Specialty Start Date End Date Kenn Bliss DO [address] [address] PCP - General Family Medicine 01/20/18 documented as of this encounter
--- OUTSIDE RECORDS SUMMARY | 2023-10-11 08:26 | External Medical Summary | Summary of Care ---
Author Name Unknown Organization [facility] Address [address] [place] [address] Phone [phone] Care Team Providers Care Panel Installer Name Role Phone Kenn Bliss DO Primary Care Provider Reason for Visit * Reason Comments Outpatient Testing Encounter Details Date Type Department Care Team (Late st Contact Info) Description 08/04/2023 3:10 PM EDT Laboratory Laboratory [facility] [address] [place] [id number] [facility] [address] [place] [address] Arrived Allergies No known active allergiesdocumented as of this encounter (statuses as of 08/04/2023) Medications Medication Sig Dispensed Refills Start Date [...] the morning. 90 Tablet 1 07/11/2023 Active documented as of this encounter (statuses as of 08/04/2023) Active Problems Problem Noted Date Diagnosed Date [...] as of this encounter (statuses as of 08/04/2023) Resolved Problems Problem Noted Date Diagnosed Date Resolved Date Inguinal hernia, right 02/09/201402/05 Dyslipidemia, goal to be determined 04/13/2009 06/16/2014 Overview: Per Lipid Taxonomy. BILAT INGUINAL HERNIA 11/24/20032018 PURE HYPERCHOLESTEROLEM 11/10/200304/04 Overview: Per Lipid Taxonomy. documented as of this encounter (statuses as of 08/04/2023) Immunizations Name Administration Dates Next Due COVID-19 mRNA, LNP-s, No Pre serve, 2-Dose Series (Cuciniale) 02/04/2021 COVID-19, LNP-s, No Preserve , Raghavendra-sucrose, [...] Care Team (Late st Contact Info) Description 08/07/2023 8:00 AM EDT Office Visit Neurosurgery, [place] [address] [place] [address] Jhoana Booth PA-C [address] [place] [address] 08/07/2023 8:00 AM EDT Office Visit Neurology, [place] [address] [place] [phone] Wong Perez MD [address] [place] [address] 04/27/2024 1:00 PM EST Office Visit [address] [place] [address] Kenn Bliss DO [address] [place] [address] Health Maintenance Due Date Last Done Comments [...] this encounter Medical Devices Implanted Type Area Machine Stitcher Device Identifier Shelf Expiration Date Model / Serial / Lot Bard Mesh Perfix Plug Implanted:Qty: 1 on 03/17/2014 at OR [facility] Tissue - Non Human 05/17/2018 [id number] / / [id number] documented as of this encounter Care Teams Panel Installer Relationship Specialty Start Date End Date Kenn Bliss DO [address] [place] [address] PCP - General Family Medicine 01/20/18 documented as of this encounter
--- OUTSIDE RECORDS SUMMARY | 2023-10-11 08:26 | External Medical Summary ---
Author Name Unknown Address Unknown Organization : Laboratory Report Ordering Provider Test Date Status MSIAEL COUCH 08/07/2023 09:35:00 Final Observation Date Value Abnormality Reference (Units ) Status ADMIONA(R)PHOSPHO-TAU/TO MARIE-TAU/A BETA42,INTERP,CSF 08/07/2023 09:35:00 SEE BELOW Final TESTS--------- ----RESULTS--------UNITS--REF. RANGE---
INTERPRETATION
This test detected borderline levels of A-beta 42, T-tau
and/or P-tau proteins in the cerebrospinal fluid (CSF).
TECHNICAL RESULTS

Int erpretive Result Table

INTER PRETATION: Borderline
TEST: A-beta 42
TECHNICAL RESULT: 204.3 pg/mL
REFERENCE RANGE: Not consistent with AD: P-Tau <54 pg/mL and
ATI >1.2, Borderline: P-Tau 54-68 pg/mL and/or ATI 0.8- 1.2,
AD: P-Tau >68 pg/mL and ATI <0.8

INTERP RETATION:
TEST: T-Tau
TECHNICAL RESULT: 455.8 pg/mL
REFERENCE RANGE:

INTE RPRETATION:
TEST: P-Tau
TECHNICAL RESULT: 63.7 pg/mL
REFERENCE RANGE:

INTE RPRETATION:
TEST: ATI
TECHNICAL RESULT: 0.26
REFERENCE RANGE:

----
COMMENTS
Gia ts: This analysis detected borderline levels of CSF
A-beta 42 peptide (A-beta 42), total tau (T-tau) and/or
phospho- tau (P-tau) protein as indicated in the technical
results table. The clinical significance of these results is
unknown. Please carefully reconcile these results with the
patient's clinical symptoms and medical history.
Recommendations: Health care providers, please contact the
[facility] Client Services Department at
if you wish to speak with a clinical
rehabilitation consultant regarding this test result.
Background information: Alzheimer s disease (AD) is the most
common form of dementia, accounting for 60-70% of cases (1).
AD manifests initially with subtle progressive memory loss
that eventually becomes severe and incapacitating.
Behavioral deficits, including social withdrawal,
aggression, depression and hallucinations, are also present
(3). Pathologically, AD is characterized by the formation of
beta-amyloid plaques and neurofibrillary tangles within the
brain, and cerebral cortical atrophy (4). The CSF based
biomarkers A-beta 42 peptide (A-beta 42), phospho-tau
(P-tau) and total tau (T-tau) can aid in the diagnosis of
AD. The combination of A-beta 42 and T-tau results are
express as the A-beta 42 to T-tau Index (ATI). ATI is
calculated as A-beta 42/(240 + 1.18 x T- tau) and represents
a ratio normalized by the discrimination line A-beta 42 =
240 + 1.18 x T-tau (4, 5). Studies performed with over 70
participants, showed that the cutoff value of ATI = 1,
yields a sensitivity of 85-94% and specificity of 54-95% in
distinguishing AD from non-AD populations (4, 5). An ATI of
<1.0 is typical of AD, while a value >1.0 is typical of
control populations. Additionally, the CSF levels of P-tau
have been found to discriminate AD from other dementias with
sensitivities of 72-88% and specificities of 78-83% (1).
Antonina considers ATI values of 0.8 to 1.2 and P-tau levels
of 54-68 pg/ml as borderline results. The combination of all
three biomarkers has been reported to have an average
sensitivity and specificity of 85% and 90%, respectively
(6).
METHODS
Detection of proteins was performed by Enzyme Linked
Immunosorbent Assay (ROSE MARY) methodology.
Limitations of analysis: Although rare, false positive or
false negative results may occur. All results should be
interpreted in the context of clinical findings, relevant
history, and other laboratory data.
REFERENCES
1. Miguelito Carvajal et al. (2014) Front Aging Neurosci 6: 47.
(PMID: 83934882)
2. Vipin T. (2008) Tanika Med 10:231-9 (PMID:35188309)
3. Braak, H, et al. (1991) Acta Neuropathol 82: 239-59.
(PMID: 2705055)
4. Panchito F, et al. (1999) Neurology 52: 1555-62. (PMID:
92290566)
5. Mikey Luciano. (2004) NeuroRx 1: 213-25. (PMID: 76304933)
6. Mikey Luciano et al. (2015) Alzheimers Liliana 11: 58-69.
(PMID: 43026824)
This test was developed and its analytical performance
characteristics have been determined by [facility].
It has not been cleared or approved by the U.S. Food and
Drug Administration. This assay has been validated pursuant
to the CLIA regulations and is used for clinical purposes.
Laboratory oversight provided by Vivekananda Damien, M.D.,
Ph.D., CLIA license magallanes, [facility] (CLIA#
[id number])
Testing performed at:
[facility] [address] [place] [address]
Test performed by [facility]
[address] [place] [address]
[address] [place] [address]

Finishing Lab Technician: Imani Quezada M.D., Ph.D. Performing Location
--- OUTSIDE RECORDS SUMMARY | 2023-10-11 08:26 | External Medical Summary ---
Author Name Unknown Address Unknown Organization : Laboratory Report Ordering Provider Test Date Status MISAEL COUCH 08/11/2023 10:35:32 Final Observation Date Value Abnormality Reference (Units ) Status Copper 08/11/2023 10:35:32 131 70-175 (mc g/dL) Final This test was developed and its analytical performance
characteristics have been determined by [facility] [place], [place]. It has
not been cleared or approved by the U.S. Food and Drug
Administration. This assay has been validated pursuant
to the CLIA regulations and is used for clinical
purposes.

Test Performed at:
[facility]
[address] [facility]
[place] [address]
Dax Steven M.D., Ph.D.,Director of Laboratories Performing Location
--- OUTSIDE RECORDS SUMMARY | 2023-10-11 08:27 | External Medical Summary | Summary of Care ---
Author Name Unknown Organization [facility] Address [address] [place] [address] Phone [phone] Care Team Providers Care Wood Floor Layer Name Role Phone Kenn Bliss DO Primary Care Provider Reason for Visit * Reason Onset Date Comments Other 07/24/2023 Encounter Details Date Type Department Care Team (Late st Contact Info) Description 07/04/2023 Telephone Neurology, [place] Frank Sharma [address] [place] [address] Timi Penn MD [address] [place] [address] Other Allergies No known active allergiesdocumented as of this encounter (statuses as of 07/24/2023) Medications Medication Sig Dispensed Refills Start Date End Date Status Debrox 6.5 % Otic Solution (Carbamide Peroxide)Indications :Bilateral impacted cerumen Administer 5 Drops into the left ear in the morning and 5 Drops before bedtime. Fill ear canal and insert cotton plug. Remove plug after 15 to 30 minutes. For 2 weeks. 15 mL 0 2 Active Acetaminophen 325 MG Oral Tablet (Tylenol) Take 2 Tablets by mouth every 4 hours as needed. 0 3 Active Donepezil HCl 10 MG Oral Tablet (Aricept) Take 1 Tablet by mouth in the morning. Take with largest meal of the day.. 90 Tablet 3 3 Active Additional Information Patient not taking.Reported on 05/19/2023 Melatonin 3 MG Oral Capsule Take 1 Capsule by mouth at bedtime. 0 Active Venlafaxine HCl ER 37.5 MG Oral Capsule Extended Release 24 Hour (Effexor XR) Take 1 Capsule by mouth in the morning. 30 Capsule 3 3 Active Additional Information Patient not taking.Reported on 05/19/2023 B-12 1000 MCG Oral Capsule Take 1 Capsule by mouth in the morning. 90 Capsule 3 3 Active QUEtiapine Fumarate 25 MG Oral Tablet (SEROquel)Indication s:Memory change,Subarachnoid hemorrhage (HCC),Cerebral ventriculomegaly take 1 tablet by mouth at bedtime 90 Tablet 1 3 Active Additional Information Patient not taking.Reported on 05/19/2023 Ondansetron HCl 4 MG Oral Tablet (Zofran) take 1 tablet by mouth every 8 hours if needed for nausea 20 Tablet 5 3 Active Additional Information Patient not taking.Reported on 05/19/2023 Sildenafil Citrate 50 MG Oral Tablet take 1 tablet by mouth once daily if needed for ERECTILE DYSFUNCTION 30 Tablet 0 3 Active Additional Information Patient not taking.Reported on 07/11/2023 methylPREDNISolone 4 MG Oral Tablet Therapy Pack (Medrol Dosepack) follow package directions 21 Tablet 0 3 Active Additional Information Patient not taking.Reported on 05/19/2023 Modafinil 100 MG Oral Tablet (Provigil)Indication s:Idiopathic hypersomnolence Take 1 Tablet by mouth in the morning. 30 Tablet 3 4 Active Additional Information Patient not taking.Reported on 07/11/2023 Memantine HCl 5 MG Oral Tablet (Namenda) Take by mouth 1 tab daily week 1, 1 tab twice daily week 2, 2 tabs in am & 1 tab in pm week 3. 42 Tablet 0 4 Active Additional Information Patient not taking.Reported on 07/11/2023 Memantine HCl 10 MG Oral Tablet (Namenda) Take 1 Tablet by mouth 2 times a day with morning and evening meals. WEEK 4 AND THEREAFTER 180 Tablet 3 4 Active Additional Information Patient not taking.Reported on 07/11/2023 Pantoprazole Sodium 20 MG Oral Tablet Delayed Release (Protonix)Indication s:Chronic hiccups Take 1 Tablet by mouth in the morning. 30 minutes before the first meal of the day. Do not crush, split or chew the tablet. 30 Tablet 5 3 024 Discontinued documented as of this encounter (statuses as of 07/24/2023) Active Problems Problem Noted Date Diagnosed Date [...] as of this encounter (statuses as of 07/24/2023) Resolved Problems Problem Noted Date Diagnosed Date Resolved Date Inguinal hernia, right 02/09/201402/05 Dyslipidemia, goal to be determined 04/13/2009 06/16/2014 Overview: Per Lipid Taxonomy. BILAT INGUINAL HERNIA 11/24/20032018 PURE HYPERCHOLESTEROLEM 11/10/200304/04 Overview: Per Lipid Taxonomy. documented as of this encounter (statuses as of 07/24/2023) Immunizations Name Administration Dates Next Due COVID-19 mRNA, LNP-s, No Pre serve, 2-Dose Series ([employer]) 02/04/2021 COVID-19, LNP-s, No Preserve , Raghavendra-sucrose, [...] Influenza, Trivalent, Adjuvanted, 65+ y rs 02/09/2019 TD - Tetanus/Diptheria (ADULT) 08/19/2002 TDAP (age 10 and older)(Boostrix) 11/17/2022, TDAP [...] Telephone Encounter - Wong Perez MD - 07/24/2023 9:01 AM EDT So, when do they come? * Telephone Encounter - Wong Perez MD - 07/22/2023 3:30 PM EDT Where are we with this appt? * Telephone Encounter - Wong Perez MD - 07/10/2023 3:37 PM EST I understand the frustration, at the same time they must remain civil. I already made an exception,I usually want to see them first, and take my own history and examination, before I do the spinal tap. I can do them another , and if Kwaku is available to see them on . I am away next week. I do not work in the office on , but I understand they want things to move around faster. I really hope they say sorry. I hove no issues if they want to do inpatient, but I can't follow them inside. * Telephone Encounter - Mayra Hamm LPN - 07/10/2023 8:18 AM EST Spoke with is very argumentive about everything, procedure, time of day, day of week She is wanting patient to be inpatient for this She is making reference that she might be late, I discussed with her that we have to be on time because patient is being fit in on the schedule I offered a later day and on a Friday and she said no Discussed that Dr. Perez is going away and this was the earliest, she is not happy with that either Question is would you consider inpatient? * Telephone Encounter - Madie Sanchez MD - 07/08/2023 11:06 AM EST Returned call to . Left VMM and sending MyG * Telephone Encounter - Wong Perez MD - 07/08/2023 9:11 AM EST Mayra will get in touch with them, as soon as I am available and the person that helps me with LP and have some dates, we call them. * Telephone Encounter - Wong Perez MD - 07/07/2023 1:18 PM EST Sure! * Telephone Encounter - Timi Penn MD - 07/04/2023 2:41 PM EST Case reviewed by NPH Board. 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 Patient mightbenefit from doing the LP directly under fluoroscopy given lumbar anatomy. documented in this encounter Plan of Treatment Upcoming Encounters Date Type Department Care Team (Late st Contact Info) Description 08/07/2023 8:00 AM EDT Office Visit Neurosurgery, [place] [address] [place] [address] Jhoana Booth PA-C [address] [place] [address] 08/07/2023 8:00 AM EDT Office Visit Neurology, [place] [address] [place] [address] Wong Perez MD [address] [place] [address] 08/11/2023 12:30 PM EDT Office Visit Gastroenterology, [facility] [address] [facility] [place] [address] Allyssa Mak CRNP [address] [facility] [place] [address] 04/27/2024 1:00 PM EST Office Visit Family Practice [facility] [address] [place] [address] Kenn Bliss DO [address] [place] [address] Health Maintenance Due Date Last Done Comments [...] this encounter Medical Devices Implanted Type Area Site Controller Device Identifier Shelf Expiration Date Model / Serial / Lot Bard Mesh Perfix Plug Implanted:Qty: 1 on 03/17/2014 at OR [facility] Tissue - Non Human 05/17/2018 [id number] / / [id number] documented as of this encounter Care Teams Wood Floor Layer Relationship Specialty Start Date End Date Kenn Bliss DO [address] [place] [address] PCP - General Family Medicine 01/20/18 documented as of this encounter
--- OUTSIDE RECORDS SUMMARY | 2023-10-11 08:27 | External Medical Summary | Summary of Care ---
Author Name Unknown Organization [facility] Address [address] [place] [address] Phone [phone] Care Team Providers Care Office Copy Selector Name Role Phone Kenn Bliss DO Primary Care Provider Reason for Visit * Reason Onset Date Comments Other 07/14/2023 Encounter Details Date Type Department Care Team (Late st Contact Info) Description 07/04/2023 Telephone Neurology, [place] Frank Sharma [address] [place] [address] Timi Penn MD [address] [place] [address] Other Allergies No known active allergiesdocumented as [...] mRNA, LNP-s, No Pre serve, 2-Dose Series ([employer]) 02/04/2021 COVID-19, LNP-s, No Preserve , Raghavendra-sucrose, [...] 08/07/2023 8:00 AM EDT Office Visit Neurosurgery, [place] [address] [place] [address] Jhoana Booth PA-C [address] [place] [address] 08/07/2023 8:00 AM EDT Office Visit Neurology, [place] [address] [place] [address] Wong Perez MD [address] [place] [address] 08/11/2023 12:30 PM EDT Office Visit Gastroenterology, [facility] [address] [facility] [place] [address] Allyssa Mak CRNP [address] [facility] [place] [address] 04/27/2024 1:00 PM EST Office Visit Family Practice [facility] [address] [place] [address] Kenn Bliss DO [address] [place] [address] Health Maintenance Due Date Last Done Comments [...] this encounter Medical Devices Implanted Type Area Nurse Educator Device Identifier Shelf Expiration Date Model / Serial / Lot Bard Mesh Perfix Plug Implanted:Qty: 1 on 03/17/2014 at OR [facility] Tissue - Non Human 05/17/2018 [id number] / / [id number] documented as of this encounter Care Teams Office Copy Selector Relationship Specialty Start Date End Date Kenn Bliss DO [address] [place] [address] PCP - General Family Medicine 01/20/18 documented as of this encounter
--- OUTSIDE RECORDS SUMMARY | 2023-10-11 08:27 | External Medical Summary | Summary of Care ---
Author Name Unknown Organization [facility] Address [address] [place] [address] Phone [phone] Care Team Providers Care Director Specialty Name Role Phone Kenn Bliss DO Primary Care Provider Encounter Details Date Type Department Care Team (Late st Contact Info) Description 07/04/2023 Telephone Neurology, [place] Frank Sharma [address] [place] [address] [place] [phone] Timi Penn MD [address] [place] [address] [place] [address] Allergies No known active allergiesdocumented as of this encounter (statuses as of 07/08/2023) Medications Medication Sig Dispensed Refills Start Date [...] Capsule by mouth at bedtime. 0 Active Pantoprazole Sodium 20 MG Oral Tablet Delayed Release (Protonix)Indications: Chronic hiccups Take 1 Tablet by mouth in the morning. 30 minutes before the first meal of the day. Do not crush, split or chew the tablet. 30 Tablet 5 03/11/2023 Active Additional Information Patient not taking.Reported on 05/19/2023 Venlafaxine HCl ER 37.5 MG Oral Capsule [...] ERECTILE DYSFUNCTION 30 Tablet 0 03/25/2023 Active methylPREDNISolone 4 MG Oral Tablet Therapy Pack (Medrol Dosepack) follow package directions 21 Tablet 0 04/18/2023 Active Additional Information Patient not taking.Reported on 05/19/2023 Modafinil 100 MG Oral Tablet (Provigil)Indications: Idiopathic hypersomnolence Take 1 Tablet by mouth in the morning. 30 Tablet 3 06/06/2023 Active Memantine HCl 5 MG Oral Tablet (Namenda) Take by mouth 1 tab daily week 1, 1 tab twice daily week 2, 2 tabs in am & 1 tab in pm week 3. 42 Tablet 0 06/18/2023 Active Memantine HCl 10 MG Oral Tablet (Namenda) Take 1 Tablet by mouth 2 times a day with morning and evening meals. WEEK 4 AND THEREAFTER 180 Tablet 3 06/18/2023 Active documented as of this encounter (statuses as of 07/08/2023) Active Problems Problem Noted Date Diagnosed Date [...] as of this encounter (statuses as of 07/08/2023) Resolved Problems Problem Noted Date Diagnosed Date Resolved Date Inguinal hernia, right 02/09/201402/05 Dyslipidemia, goal to be determined 04/13/2009 06/16/2014 Overview: Per Lipid Taxonomy. BILAT INGUINAL HERNIA 11/24/20032018 PURE HYPERCHOLESTEROLEM 11/10/200304/04 Overview: Per Lipid Taxonomy. documented as of this encounter (statuses as of 07/08/2023) Immunizations Name Administration Dates Next Due COVID-19 [...] Perez MD - 07/08/2023 9:11 AM EST Myara will get in touch with them, as [...] Care Team (Late st Contact Info) Description 07/11/2023 11:00 AM EST Office Visit Gastroenterology, [facility] [address] [place] [address] Allyssa Mak CRNP [address] [place] [address] 07/15/2023 5:20 PM EDT Office Visit [facility] [address] [place] [address] Renea Lopez CRNP [address] [place] [address] 04/27/2024 1:00 PM EST Office Visit [facility] [address] [place] [address] Kenn Bliss DO [address] [place] [address] Health Maintenance Due Date Last Done Comments [...] this encounter Medical Devices Implanted Type Area All Terrain Vehicle Racer Device Identifier Shelf Expiration Date Model / Serial / Lot Bard Mesh Perfix Plug Implanted:Qty: 1 on 03/17/2014 at OR [facility] Tissue - Non Human 05/17/2018 [id number] / / [id number] documented as of this encounter Care Teams Director Specialty Relationship Specialty Start Date End Date Kenn Bliss DO [address] [place] [address] PCP - General Family Medicine 01/20/18 documented as of this encounter
--- OUTSIDE RECORDS SUMMARY | 2023-10-11 08:27 | External Medical Summary | Summary of Care ---
Author Name Unknown Organization [facility] Address [address] [place] [address] Phone [phone] Care Team Providers Care Vending Machine Assembler Name Role Phone Kenn Bliss DO Primary Care Provider Reason for Visit * Reason Onset Date Comments Other 07/14/2023 Encounter Details Date Type Department Care Team (Late st Contact Info) Description 07/04/2023 Telephone Neurology, [place] Frank Sharma [address] [place] [address] Timi Penn MD [address] [place] [address] Other Allergies No known active allergiesdocumented as of this encounter (statuses as of 07/23/2023) Medications Medication Sig Dispensed Refills Start Date [...] as of this encounter (statuses as of 07/23/2023) Active Problems Problem Noted Date Diagnosed Date [...] as of this encounter (statuses as of 07/23/2023) Resolved Problems Problem Noted Date Diagnosed Date Resolved Date Inguinal hernia, right 02/09/201402/05 Dyslipidemia, goal to be determined 04/13/2009 06/16/2014 Overview: Per Lipid Taxonomy. BILAT INGUINAL HERNIA 11/24/20032018 PURE HYPERCHOLESTEROLEM 11/10/200304/04 Overview: Per Lipid Taxonomy. documented as of this encounter (statuses as of 07/23/2023) Immunizations Name Administration Dates Next Due COVID-19 mRNA, LNP-s, No Pre serve, 2-Dose Series ([employer]) 02/04/2021 COVID-19, LNP-s, No Preserve , Raghavendra-sucrose, [...] spinal tap. I can do them another favor, and if Kwaku is available to see [...] 08/07/2023 8:00 AM EDT Office Visit Neurosurgery, [place] [address] [place] [address] Jhoana Booth PA-C [address] [place], [place] [id number] 08/07/2023 8:00 AM EDT Office Visit Neurology, [place] [address] [place] [address] Wong Perez MD [address] [place] [address] 08/11/2023 12:30 PM EDT Office Visit Gastroenterology, [facility] [address] [place] [address] Allyssa Mak CRNP [address] [place] [address] 04/27/2024 1:00 PM EST Office Visit Family Practice [facility] [address] [place] [address] Kenn Bliss DO [address] [place] [address] Health Maintenance Due Date Last Done Comments [...] this encounter Medical Devices Implanted Type Area Standard Machine Stitcher Device Identifier Shelf Expiration Date Model / Serial / Lot Bard Mesh Perfix Plug Implanted:Qty: 1 on 03/17/2014 at OR [facility] Tissue - Non Human 05/17/2018 [id number] / / [id number] documented as of this encounter Care Teams Vending Machine Assembler Relationship Specialty Start Date End Date Kenn Bliss DO [address] [facility] [place] [address] PCP - General Family Medicine 01/20/18 documented as of this encounter
--- OUTSIDE RECORDS SUMMARY | 2023-10-11 08:27 | External Medical Summary | Summary of Care ---
Author Name Unknown Organization [facility] Address [address] [place] [address] Phone [phone] Care Team Providers Care Emergency Department Technician Name Role Phone Kenn Blisscallie Primary Care Provider Reason for Visit * Reason Comments Neuropsychological Evaluation Encounter Details Date Type Department Care Team ([facility] st Contact Info) Description 07/07/2023 9:00 AM EST Therapy Neuropsychology [facility] [address] [place] [address] Zafar Hood, PhD [address] [place] [address] Major neurocognitive disorder (HCC)* Allergies No known active allergiesdocumented as of [...] Additional Information Patient not taking.Reported on 07/11/2023 documented as of this encounter (statuses as [...] as of this encounter Progress Notes * Zafar Hood, PhD - 07/07/2023 9:13 AM EST NEUROPSYCHOLOGICAL EVALUATION Patient Name: Angel Arevalo Date of : 1950 Age: 73 Education: PhD Date of Evaluation: 07/07/2023 Identifying and Referral Information: 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 We discussed what to expect during the neuropsychological evaluation process. I described limits ofconfidentiality. Pt provided informed consent to proceed with the evaluation. Background Information: Pt seen by Dr. 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 His is now handling medications, finances. He is having trouble reading clocks and has stopped driving. His helps with bathing, and prompting for some ADLs. She also does meal prep and cleans house. MRI [address] 2022 show enlarged ventricles and this referral was to rule out NPH, given that pt has also had gait changes. He follows with Dr Ramirez in [place], and they asked for 2ndopinion over the NPH question. MoCA showed reduction in EF, V/S, memory. Exam shows peripheral neuropathy and resultant sensory ataxia. Imaging from 2020 to 2022 shows enlarged ventricles (stable) as well as MTL atrophy, and vascular changes (confluent occipital horns of lateral ventricles). Gait changes from peripheral neuropathy (EMG shows length dependent; exam shows decreased sensationand proprioception). 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 Has good cognitive reserve and suspect recent brain injury unmasked/accelerated signs of underlying disease. No signs ofparkinsonism and no clinical evidence for NPH. 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 He retains some insight. Behavioral Issues: +sleeping a lot; +apathy, ?depression ("flat" he calls it) Safety Issues: Fall risk (neuropathy) Low normal X42-xtbu replete Tolerating Aricept--may cause burping I provided in their check out material for the patient and spouse a written summary that outlines the diagnosis, prognosis, evaluation and management plan thus far after providing counseling on theseitems, which I also list below. They will return to our clinic 3 months Thank you once again for allowing us to participate in the care of this patient. Medication Orders Placed This Encounter Medications B-12 1000 MCG Oral Capsule Venlafaxine HCl ER 37.5 MG Oral Capsule Extended Release 24 Hour (Effexor XR) Plan: Adult/peds neuropsychology referral op Present Concerns: Pt is a 73-year-old, right-hand dominant, Slovenian-speaking, man with a PhD level of formal education. Pt was accompanied to the appt by his , Hayley, who participated in the clinical interview with pt's permission. Timeline of cognitive changes is somewhat unclear, as pt seemed to keep these concerns private early on. Medical record shows that the pt initially saw neurologist Dr. Ramirez back in 2017 (with subsequent follow up in 2020, 2021, and 2022) for concerns about his cognition/memory and ventriculomegaly (?NPH); however, pt's was largely unaware of these concerns at the time. Then, pt fell during a hike in November 2022 and struck his head. He went to [facility] and was foundto have a small SAH (right frontal lobe) and possible SDH vs. calcification (along the falx); the bleed(s) resolved without surgical intervention. Pt was diagnosed with a concussion/mTBI. Pt was medically transported from [place] back to [place], [place]. He spent 10-11 days at [facility]. Pt retired from his job as a [employer] professor in 2018. At that time, the pt's noticed thatthe pt was having difficulty using technology and spending significant time alone in his home office. Pt and reported numerous cognitive complaints. Endorsed short-term memory issues: trouble recalling details of conversations and events, repeats self excessively on occasion, and reduced prosepctive memory. Cues do not seem to help readily with recall. Denied becoming lost/disoriented in familiar places. Endorsed significant attention/concentration issues. Endorsed slowed information processing speed. Endorsed fundamental language concerns: word finding difficulty. Endorsed concerns with visuospatial/constructional ability: reduced depth perception. Endorsed significant executive functioning issues. Not reading as much, seems to just flip pages. Pt and endorsed gradual gait changes over the past handful of years; unclear etiology. Pt has been using a walker since last summer. He had two mechanical falls in 02/2023. Pt has had increasinginstances of urinary incontinence. Pt and denied tremors, dysphagia, changes in smell/taste, re current falls, and apraxia. Pt had a very difficult time describing mood. Pt previously told Dr. Sanchez he feels "flat." Pt's described significant apathy, amotivation, and fatigue. Pt has had 4-5 episodes of intenseanger/outbursts usually related to being asked to use his walker. Pt and denied ijeoma depression/anxiety. Pt and denied evidence of SI/HI, hallucinations, paranoia, delusions, and dominick. Ptnot currently taking any psychotropic medications; pt's has been hesitant to start new medications. Pt is not currently in counseling. Sleep has "never been better." Pt and sleep in separate rooms. Pt wakes once or twice a night to use the bathroom. It was difficult to obtain a clear picture of pt's sleep habits. However, pt and denied significant symptoms of insomnia, MARINE, and RSBD. Energy is poor. Pt has increased lethargy and is very sedentary. He spends a lot of time sitting orlaying in bed. Appetite is "about the same." Pt's feels that he is eating quite a lot given reduced level of physical activity. He has been more interested in ice cream than in the past; otherwise, they deniedunusual food cravings/eating habits. Pt denied chronic pain. Pt denied any acute pain/discomfort today. Pt and denied current ETOH use. Pt and denied current tobacco use. Pt and denied current recreational use of prescription/illict substances. Pt and denied current excessive caffeine intake. Pt is reportedly independent for all basic ADLs, though he requires prompting and is needing some assistance now with shaving. is fully responsible for instrumental ADLs. Pt is no longer able touse technology. He no longer drives. Complications and Developmental Delays: Denied. Educational/Vocational History: Denied any history of learning problems/disorders. Denied any history of academic retention. Graduated from high school. Earned a bachelor degree from the [employer]. Attended graduate school at [employer]- PhD in Ecology. 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 Service: Denied. Psychiatric History: Denied. Substance Use History: Denied. Social History: Has been with current since 2001; in 2020. Had one previous marriage; after 29 years. Has two adult children from previous marriage. Has one teenage daughter from current marriage; daughter lives at home with pt and his . [place] at home with and daughter. Legal Issues: Denied. 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 As noted above, had a SAH and possible SDH in 2022. Denied any known history of TIA, stroke, and seizures. MRI of the brain conducted on 03/01/2022 showed (per radiology read): FINDINGS As before, there is global cerebral volume loss. Disproportionate ventriculomegaly involving the lateral and 3rd ventricles is grossly unchanged, with symmetric prominence of the temporal horns. There is mild upward bowing of the corpus callosum and narrowing of the posterior portion of the cingulate sulcus (cingulate sulcus sign). Garcia index measures 0.39. The callosal angle measures roughly 79degrees. The sylvian fissures are mildly prominent, but there is relative crowding of the bilateral cerebralsulci near the vertex. Extensive, patchy and confluent T2 FLAIR hyperintensity in the bilateral periventricular and subcortical cerebral white matter is grossly stable, considering differences in slice selection. No restricted diffusion suspicious for acute ischemia is noted on the diffusion-weighted sequence. No space-occupying mass, brain edema, midline shift, or extra-axial fluid collection. The pituitary gland, pineal region, brainstem, cerebellum, and craniocervical junction are within normal limits. Expected intracranial vascular flow voids are grossly maintained. [place] ocular lensesare surgically absent. IMPRESSION 1. Stable ventriculomegaly, which appears disproportionate to the underlying cerebral volume loss. There is associated disproportionate enlargement of the subarachnoid spaces, increased Garcia index, cingulate gyrus sign, and an acute colossal angle. This constellation of findings raises concern forunderlying normal pressure hydrocephalus. 2. Stable nonspecific T2 FLAIR signal hyperintensity in the bilateral cerebral white matter. 3. No new intracranial pathology. Head CT conducted on 06/02/2023 showed (per radiology read): FINDINGS: Near confluent hypodensity in the white matter. Moderate to severe enlargement of the ventricles, acuity of the callosum angle, massively enlarged Garcia index, widened sylvian cisterns, and crowding of sulci at the vertex. The left temporal subependymal [place] matter heterotopia is redemonstrated. The temporal horns and 3rd ventricle are enlarged. The chiasmatic and infundibular recesses are nondistended. No acute hemorrhage or acute infarct. Bilateral artificial intra-ocular lenses. No concerning scalp or calvarial abnormalities. Trace left dependent maxillary sinus mucosal thickening. Mastoid air cells and middle ears are clear. IMPRESSION: Similar to slightly worsening severe ventriculomegaly. The ventricular/sulcal morphology is that of idiopathic normal pressure hydrocephalus, although this is a clinical diagnosis, and the imaging findings can precede the clinical syndrome. Chronic compensated hydrocephalus is considered less likely. Superimposed secondary normal pressurehydrocephalus is possible given the reported traumatic subarachnoid hemorrhage worsening symptoms. No acute intracranial abnormality. Chronic findings as detailed. Current Outpatient Medications (per medical record): Current Outpatient Medications Medication Sig Dispense Refill Debrox 6.5 % Otic Solution (Carbamide Peroxide) Administer 5 Drops into the left ear in the morningand 5 Drops before bedtime. Fill ear canal and insert cotton plug. Remove plug after 15 to 30 minutes. For 2 weeks. 15 mL 0 Acetaminophen 325 MG Oral Tablet (Tylenol) Take 2 Tablets by mouth every 4 hours as needed. Donepezil HCl 10 MG Oral Tablet (Aricept) Take 1 Tablet by mouth in the morning. Take with largest meal of the day.. (Patient not taking: Reported on 05/19/2023) 90 Tablet 3 Melatonin 3 MG Oral Capsule Take 1 Capsule by mouth at bedtime. (Patient not taking: Reported on 05/19/2023) Pantoprazole Sodium 20 MG Oral Tablet Delayed Release (Protonix) Take 1 Tablet by mouth in the morning. 30 minutes before the first meal of the day. Do not crush, split or chew the tablet. (Patient not taking: Reported on 05/19/2023) 30 Tablet 5 Venlafaxine HCl ER 37.5 MG Oral Capsule Extended Release 24 Hour (Effexor XR) Take 1 Capsule by mouth in the morning. (Patient not taking: Reported on 05/19/2023) 30 Capsule 3 B-12 1000 MCG Oral Capsule Take 1 Capsule by mouth in the morning. 90 Capsule 3 QUEtiapine Fumarate 25 MG Oral [...] needed for ERECTILE DYSFUNCTION 30 Tablet 0 methylPREDNISolone 4 MG Oral Tablet Therapy Pack (Medrol Dosepack) follow package directions (Patient not taking: Reported on 05/19/2023) 21 Tablet 0 Modafinil 100 MG Oral Tablet (Provigil) Take 1 Tablet by mouth in the morning. 30 Tablet 3 Memantine HCl 5 MG Oral Tablet (Namenda) Take by mouth 1 tab daily week 1, 1 tab twice daily week 2, 2 tabs in am & 1 tab in pm week 3. 42 Tablet 0 Memantine HCl 10 MG Oral Tablet (Namenda) Take 1 Tablet by mouth 2 times a day with morning and evening meals. WEEK 4 AND THEREAFTER 180 Tablet 3 No current facility-administered medications for this visit. Currently only taking vit B12. Family History: Patient's mother in her mid 90s likely of general health decline. Patient's father in his 70s with a history of a significant CVA. Denied any known family history of dementia,neurological disease, psychiatric illness, and substance abuse. Family History Problem Relation Age of Onset Hypertension Father Stroke Father age 72 Mental retardation Sister Heart Disorder Brother pacemaker Arthritis Grandfather (Maternal) Heart Disorder Grandfather (Paternal) in 60's Mental Status Evaluation/Behavioral Observations: Sensorium: Awake and alert to stimulus with no difficulty maintaining an appropriate level of arousal. Orientation: Oriented to person and place. Disoriented to time (said 3 pm when it was 9:30 am), date (said it was January 2022), and was unsure of current [place] president even with cues. Appearance: Casually dressed and was appropriate to season and situation. No apparent distress. Grooming, Hygiene: WNL. Behavior: Compliant and cooperative with the evaluation and testing procedures. Pleasant. Socially appropriate. Speech/language: Speech was WNL for rate, volume, and prosody, though spontaneous output was limited. Receptive and expressive language were broadly WNL. Gait/Posture: Gait was slow and unsteady. Posture unremarkable on casual observation. Assistive Devices: Hearing and vision were adequate for purposes of testing. Mood: Denied depression and anxiety. Affect: Euthymic. Broad in range. Congruent. Motor: No tremor noted. Normal facial expression. Thought process/Content/Hallucinations: Broadly logical and linear, though relied heavily on for provision of clinical history. No unusual content noted. No hallucinations noted. Safety: Any safety issues, thoughts of harming self or others were denied. CSSRS was negative. Insight: Fair to diminished. Procedures: Clinical Interview & Record Review; Wide Range Achievement Test - 4 (WRAT-4: Word Reading); Neuropsychological Assessment Battery (NAB Form 1: Digits Forward/Backward, Naming, List Learning); Repeatable Battery for the Assessment of Neuropsychological Status (RBANS A: Figure Copy, Figure Recall, Line Orientation, Coding); Controlled Oral Word Association Test (COWAT: FAS, Animal Naming); BDAE Complex Ideational Material; Clock Drawing; A Random Letter Test; Geriatric Depression Scale-Short Form (GDS-SF); The Quick Dementia Rating System (QDRS) Findings: Test scores are summarized in additional documentation associated with this encounter. Test scores and associated descriptive qualifiers are relative to age, gender and/or education as available and appropriate. Effort appeared to be sufficient. It is not necessarily abnormal to have somelow scores in the context of multiple measurements. Estimation of Premorbid Ability: Single word reading was average. Attention & Processing Speed: Digit repetition forward was low average, and digit repetition backward was exceptionally low. A simple task of sustained attention was within normal limits. A timednumber-symbol coding task, an indicator of graphomotor speed and selective attention/association learning, was unable to be fully administered due to pt's inability to complete the sample items. Language: Confrontation picture naming was low average (raw = 28/31). Phonemic verbal fluency was below average, and semantic verbal fluency was exceptionally low. Visual-perceptual and spatial: A figure copy task was exceptionally low, characterized by very poorrepresentation of the target figure and discontinued after 4 minutes. A task assessing the visual analysis and judgment of angular line orientations was discontinued due to pt inability to complete the sample item. Memory: With regard to verbal memory, immediate recall over three learning trials (3, 1, 1) for a 12-item word list was exceptionally low. He recalled 0 words on the short-delayed recall trial and 0 words on the long-delayed recall trial, both exceptionally low. On a recognition task, he correctly identified 11/12 words but with 10 false positive errors, resulting in low average discrimination between target words and foils. Delayed recall of a geometric figure was exceptionally low; he recalled zero details. Executive function: Responding to a series of yes/no questions involving auditory attention, comprehension, working memory, and reasoning was average. Phonemic verbal fluency was below average. Clockdrawing showed severe impairment. Rating Scale(s): The patient completed a self-report screening inventory of depressive symptoms andscreened negative for depression (GDS - SF = 3). The pt's rated the pt at a severe dementia level on a formal dementia rating scale. Summary and Conclusions Premorbid intellectual ability was likely at least in the high average range, extrapolated from educational/occupational attainment and reading ability. Simple auditory attention was relatively reduced, though not frankly impaired. Auditory working memory was far below expectation. Information processing speed was unable to formally measured given pt's inability to complete associated tasks; however, it is presumed that information processing has drastically declined. Fundamental language demonstrated a relative reduction in confrontation picture naming and notable impairment in verbal fluency (for both phonemic and semantic cues, with semantic worse than phonemic). Verbal learning/memory showed poor encoding, impaired delayed recall, and limited benefit from recognition cuing. Nonverbal memory was also poor. This memory pattern is suggestive of a storage deficit. Executive functioning was variable; visual planning and generative thinking were far below expectation while simple reasoning/auditory comprehension was broadly intact. The pt was unable to complete other formal tasks of executive functioning. Pt screened negative for depression. Pt's rated the pt at a severe dementia level. Impression is one of major neurocognitive disorder (e.g., dementia), with a mixed neurocognitive testing profile reflecting both frontal-subcortical (attention/working memory, information processing speed, executive functioning) and cortical (verbal learning/memory, language, and visuospatial/constructional) deficits. Given evidence of substantial day-to-day functional decline, pt meets criteria for a major neurocognitive disorder, [id number] stage. Etiology is likely multifactorial. Given the clinical history (advancing age, gradual onset/progression, neurocognitive profile, diffuse parenchymal/MTL atrophy, etc), an underlying Alzheimer's disease should be a primary consideration. A dditionally, the pt also has numerous cerebrovascular risk factors and findings of notable chronic cerebrovascular disease on neuroimaging; as such, cerebrovascular disease is also likely playing a role in the clinical picture and could be driving the observed frontal-subcortical deficits. Regarding the question of NPH, while aspects of the clinical history and neurocognitive testing could be consistent with underlying NPH, the overall clinical picture is more convincing for a mixed Alzheimer'sand cerebrovascular disease etiologies in my opinion. That said, I defer to movement disorders neurology/neurosurgery opinion on the possibility of NPH and encouraged the pt/family that following-up on the NPH board's recommendations for further evaluation of NPH would certainly be reasonable for diagnostic clarity and possible alleviation of some symptoms. 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 Consult with movement disorders neurology and neurosurgery as appropriate for further investigationof NPH. Good management of cerebrovascular risk factors will reduce risk of cerebrovascular disease progression and stroke risk. Pt is currently residing at home with . Continued oversight and assistance with day-to-day activities is recommended. Consider alternative care plan or living arrangements as appropriate. Continue to follow with social work as needed. Minimize distractions and interruptions. Focus on only one task for a period of time. Use external memory and organizational aids as needed. Use reminders, memos and a calendar to help. Place items in a consistent place. Establish routines. Make and use checklists. Also, a set schedule can provide a structure around which to plan and remember future errands or tasks. Cognitively stimulating activities can be encouraged but avoid stressful overly difficult activity.Healthy routine exercise, good nutrition, stress reduction, and cultivating satisfying social interactions can also help to enhance quality of life. Plan energy use. Prevent overload; pay attention to signs of fatigue, including, less ability to follow conversations, losing train of thought, worsening slowing of information processing speed, increased errors, increased word finding problems, headache. Structure activities. Simplify information, be clear and concise. Suggest the word the person may be looking for. Observe to identify parts of a task that are difficult. Eliminate tasks that are difficult and frustrating. Continue to be as physically, socially, and cognitively engaged/active as possible for overall health and well-being. Proper nutrition, stress reduction, and cultivating satisfying social interactions are encouraged and can help to enhance quality of life. Track cognitive functioning over time. Future neuropsychological evaluation is available as needed. Thank you for involving me in the care of this pt. Do not hesitate to contact me with any questionsor concerns. Zafar Hood, Ph.D., ABN Neuropsychologist Service Time: [id number] [phone] x 60 mins [id number] x 240 mins [id number] x 30 mins [id number] x 60 mins documented in this encounter Plan of Treatment Upcoming Encounters Date Type Department Care Team (Late st Contact Info) Description 08/07/2023 8:00 AM EDT Office Visit Neurosurgery, [place] [address] [place] [address] Jhoana Booth PA-C [address], [place] [id number] 08/07/2023 8:00 AM EDT Office Visit Neurology, [place] [address] [id number] Wong Perez MD [address], [place] [id number] 08/11/2023 12:30 PM EDT Office Visit Gastroenterology, [facility] [address] [place] [address] Allyssa Mak CRNP [address] [place] [address] 04/27/2024 1:00 PM EST Office Visit Family Practice [facility] [address] [place] [address] Kenn Bliss DO [address] [place] [address] Health Maintenance Due Date Last Done Comments COLONOSCOPY-EVERY 3 YRS AGES 18-100 09/24/2019 09/23/2016, 09/23/2016 COVID-19 Vaccine ( - 2022- season) 2023 08/11/2021, 02/04/2021, 07/03/2020 [...] this encounter Medical Devices Implanted Type Area Global Ceo Device Identifier Shelf Expiration Date Model / Serial / Lot Bard Mesh Perfix Plug Implanted:Qty: 1 on 03/17/2014 at OR [facility] Tissue - Non Human 05/17/2018 [id number] / / [id number] documented as of this encounter Visit Diagnoses Diagnosis Major neurocognitive disorder (HCC)- Primary documented in this encounter Care Teams Emergency Department Technician Relationship Specialty Start Date End Date Kenn Bliss DO [address] [place] [address] PCP - General Family Medicine 01/20/18 documented as of this encounter
--- OUTSIDE RECORDS SUMMARY | 2023-10-11 08:27 | External Medical Summary | Summary of Care ---
Author Name Unknown Organization [facility] Address [address] [place] [address] Phone [phone] Care Team Providers Care Code Enforcement Officer Name Role Phone Kenn Bliss DO Primary Care Provider Encounter Details Date Type Department Care Team (Late st Contact Info) Description 07/04/2023 Telephone Neurology, [place] Frank Sharma [address] [place] [phone] Timi Penn MD [address] [place] [address] Allergies No known active allergiesdocumented as of [...] 07/11/2023 11:00 AM EST Office Visit Gastroenterology, [facility] [address] [place] [address] Allyssa Mak CRNP [address] [place] [address] 07/15/2023 5:20 PM EDT Office Visit [facility] [address] [place] [address] Renea Lopez CRNP [address] [place] [address] 04/27/2024 1:00 PM EST Office Visit [facility] [address] [place] [address] Kenn Bliss DO [address] [place] [address] Health Maintenance Due Date Last Done Comments [...] this encounter Medical Devices Implanted Type Area Customer Engineering Specialist Device Identifier Shelf Expiration Date Model / Serial / Lot Bard Mesh Perfix Plug Implanted:Qty: 1 on 03/17/2014 at OR [facility] Tissue - Non Human 05/17/2018 [id number] / / [id number] documented as of this encounter Care Teams Code Enforcement Officer Relationship Specialty Start Date End Date Kenn Bliss DO [address] [place] [address] PCP - General Family Medicine 01/20/18 documented as of this encounter
--- OUTSIDE RECORDS SUMMARY | 2023-10-11 08:27 | External Medical Summary | Summary of Care ---
Author Name Unknown Organization [facility] Address [address] [place] [address] Phone [phone] Care Team Providers Care Cotton Opener Name Role Phone Kenn Bliss DO Primary Care Provider Reason for Visit * Reason Onset Date Comments Other 07/04/2023 Encounter Details Date Type Department Care Team ([facility] st Contact Info) Description 07/04/2023 Telephone Neurology, [place] Frank Sharma [address] [place] [address] Timi Penn MD [address] [place] [address] Other Allergies No known active allergiesdocumented as [...] encounter Miscellaneous Notes * Telephone Encounter - Madie Sanchez MD [...] 07/11/2023 11:00 AM EST Office Visit Gastroenterology, [facility] [address] [place] [address] Allyssa Mak CRNP [address] [place] [address] 07/15/2023 5:20 PM EDT Office Visit Family Practice [facility] [address] [place] [address] Renea Lopez CRNP [address] [place] [address] 04/27/2024 1:00 PM EST Office Visit Family Practice [facility] [address] [place] [address] Kenn Bliss DO [address] [place] [address] Health Maintenance Due Date Last Done Comments COLONOSCOPY-EVERY 3 YRS AGES 18-100 09/24/2019 09/23/2016, 09/23/2016 COVID-19 Vaccine ( season) 2023 08/11/2021, 02/04/2021, 07/03/2020 Depression Screening [...] this encounter Medical Devices Implanted Type Area Community Organization Director Device Identifier Shelf Expiration Date Model / Serial / Lot Bard Mesh Perfix Plug Implanted:Qty: 1 on 03/17/2014 at OR [facility] Tissue - Non Human 05/17/2018 [id number] / / [id number] documented as of this encounter Care Teams Cotton Opener Relationship Specialty Start Date End Date Kenn Bliss DO [address] [place] [address] PCP - General Family Medicine 01/20/18 documented as of this encounter
--- OUTSIDE RECORDS SUMMARY | 2023-10-11 08:27 | External Medical Summary | Summary of Care ---
Author Name Unknown Organization [facility] Address [address] [place] [address] Phone [phone] Care Team Providers Care Forestry Crew Chief Name Role Phone Kenn Bliss DO Primary Care Provider Reason for Visit * Reason Onset Date Comments Other 07/14/2023 Encounter Details Date Type Department Care Team (Late st Contact Info) Description 07/04/2023 Telephone Neurology, [place] Frank Sharma [address] [place] [address] Timi Penn MD [address] [place] [address] Other Allergies No known active allergiesdocumented as of this encounter (statuses as of 07/14/2023) Medications Medication Sig Dispensed Refills Start Date [...] as of this encounter (statuses as of 07/14/2023) Active Problems Problem Noted Date Diagnosed Date [...] as of this encounter (statuses as of 07/14/2023) Resolved Problems Problem Noted Date Diagnosed Date Resolved Date Inguinal hernia, right 02/09/201402/05 Dyslipidemia, goal to be determined 04/13/2009 06/16/2014 Overview: Per Lipid Taxonomy. BILAT INGUINAL HERNIA 11/24/20032018 PURE HYPERCHOLESTEROLEM 11/10/200304/04 Overview: Per Lipid Taxonomy. documented as of this encounter (statuses as of 07/14/2023) Immunizations Name Administration Dates Next Due COVID-19 mRNA, LNP-s, No Pre serve, 2-Dose Series ([employer]) 02/04/2021 COVID-19, LNP-s, No Preserve , Raghavendra-sucrose, [...] Care Team (Late st Contact Info) Description 07/15/2023 5:20 PM EDT Office Visit [facility] [address] [place] [address] Renea Lopez CRNP [address] [place] [address] 08/07/2023 8:00 AM EDT Office Visit Neurosurgery, [place] [employer] [address] [place] [address] Jhoana Booth PA-C [address] [place], [place] [id number] 08/07/2023 8:00 AM EDT Office Visit Neurology, [place] [employer] [address] [place] [phone] Wong Perez MD [address] [place] [address] 08/11/2023 12:30 PM EDT Office Visit Gastroenterology, [facility] [address] [place] [address] Allyssa Mak CRNP [address] [place] [address] 04/27/2024 1:00 PM EST Office Visit [facility] [address] [place] [address] Kenn Bliss DO [address] [place] [address] Health Maintenance Due Date Last Done Comments [...] this encounter Medical Devices Implanted Type Area Business Continuity Coordinator Device Identifier Shelf Expiration Date Model / Serial / Lot Bard Mesh Perfix Plug Implanted:Qty: 1 on 03/17/2014 at OR [facility] Tissue - Non Human 05/17/2018 [id number] / / [id number] documented as of this encounter Care Teams Forestry Crew Chief Relationship Specialty Start Date End Date Kenn Bliss DO [address] [place] [address] PCP - General Family Medicine 01/20/18 documented as of this encounter
--- OUTSIDE RECORDS SUMMARY | 2023-10-11 08:27 | External Medical Summary | Summary of Care ---
Author Name Unknown Organization [facility] Address [address] [place] [address] Phone [phone] Care Team Providers Care Yardmaster Name Role Phone Kenn Bliss DO Primary Care Provider Reason for Visit * Reason Onset Date Comments Other 07/10/2023 Encounter Details Date Type Department Care Team ([facility] st Contact Info) Description 07/04/2023 Telephone Neurology, [place] Frank Sharma [address] [place] [address] Timi Penn MD [address] [place] [address] Other Allergies No known active allergiesdocumented as of this encounter (statuses as of 07/10/2023) Medications Medication Sig Dispensed Refills Start Date [...] as of this encounter (statuses as of 07/10/2023) Active Problems Problem Noted Date Diagnosed Date [...] as of this encounter (statuses as of 07/10/2023) Resolved Problems Problem Noted Date Diagnosed Date Resolved Date Inguinal hernia, right 02/09/201402/05 Dyslipidemia, goal to be determined 04/13/2009 06/16/2014 Overview: Per Lipid Taxonomy. BILAT INGUINAL HERNIA 11/24/20032018 PURE HYPERCHOLESTEROLEM 11/10/200304/04 Overview: Per Lipid Taxonomy. documented as of this encounter (statuses as of 07/10/2023) Immunizations Name Administration Dates Next Due COVID-19 [...] encounter Miscellaneous Notes * Telephone Encounter - Mayra Hamm LPN [...] 07/11/2023 11:00 AM EST Office Visit Gastroenterology, [facility] [address] [place] [address] Allyssa Mak CRNP [address] [place] [address] 07/15/2023 5:20 PM EDT Office Visit Family Practice [facility] [address] [place] [address] Renea Lopez CRNP [address] [place] [address] 08/07/2023 8:00 AM EDT Office Visit Neurosurgery, [place] [address] [facility] [address] Jhoana Booth PA-C [address] [place] [address] 08/07/2023 8:00 AM EDT Office Visit Neurology, [place] [address] [place] [address] [facility] [phone] Wong Perez MD [address] [place] [address] 04/27/2024 1:00 PM EST Office Visit Family Practice [facility] [address] [place] [address] Kenn Bliss DO [address] [place] [address] Health Maintenance Due Date Last Done Comments [...] this encounter Medical Devices Implanted Type Area Chair Car Driver Device Identifier Shelf Expiration Date Model / Serial / Lot Bard Mesh Perfix Plug Implanted:Qty: 1 on 03/17/2014 at OR [facility] Tissue - Non Human 05/17/2018 [id number] / / [id number] documented as of this encounter Care Teams Yardmaster Relationship Specialty Start Date End Date Kenn Bliss DO [address] [place] [address] PCP - General Family Medicine 01/20/18 documented as of this encounter
--- OUTSIDE RECORDS SUMMARY | 2023-10-11 08:27 | External Medical Summary ---
Author Name Unknown Address Unknown Organization K09:[facility] [address] Laboratory Report Ordering Provider Test Date Status MISAEL COUCH 08/04/2023 15:12:27 Final Observation Date Value Abnormality Reference (Units ) Status WBC, Total 08/04/2023 15:12:27 8.97 4.00-10.8 0 (K/uL) Final RBC 08/04/2023 15:12:27 5.09 4.50-5.25 (M/uL) Final Hemoglobin 08/04/2023 15:12:27 15.8 14.0-16.8 (g/dL) Final HCT 08/04/2023 15:12:27 48.0 40.0-48.4 (%) Final MCV 08/04/2023 15:12:27 94.3 82.0-99.5 (fL) Final MCH 08/04/2023 15:12:27 31.0 27.0-34.0 (pg) Final MCHC 08/04/2023 15:12:27 32.9 32.0-36.0 (g/dL) Final RDW 08/04/2023 15:12:27 12.9 11.5-15.5 (%) Final Platelets 08/04/2023 15:12:27 215 140-400 (K /uL) Final MPV 08/04/2023 15:12:27 10.0 6.6-11.1 ( fL) Final Performing Location [place] [address]
--- OUTSIDE RECORDS SUMMARY | 2023-10-11 08:27 | External Medical Summary | Summary of Care ---
Author Name Unknown Organization [facility] Address [address] [place] [address] Phone [phone] Care Team Providers Care Hot Roller Name Role Phone Kenn Bliss DO Primary Care Provider Encounter Details Date Type Department Care Team (Late st Contact Info) Description 07/04/2023 Telephone Neurology, [place] Frank Sharma [address] [place] [phone] Timi Penn MD [address] [place] [place] [address] Allergies No known active allergiesdocumented as of this encounter (statuses as of 07/04/2023) Medications Medication Sig Dispensed Refills Start Date [...] as of this encounter (statuses as of 07/04/2023) Active Problems Problem Noted Date Diagnosed Date [...] as of this encounter (statuses as of 07/04/2023) Resolved Problems Problem Noted Date Diagnosed Date Resolved Date Inguinal hernia, right 02/09/201402/05 Dyslipidemia, goal to be determined 04/13/2009 06/16/2014 Overview: Per Lipid Taxonomy. BILAT INGUINAL HERNIA 11/24/20032018 PURE HYPERCHOLESTEROLEM 11/10/200304/04 Overview: Per Lipid Taxonomy. documented as of this encounter (statuses as of 07/04/2023) Immunizations Name Administration Dates Next Due COVID-19 mRNA, LNP-s, No Pre serve, 2-Dose Series ([employer]) 02/04/2021 COVID-19, LNP-s, No Preserve , Raghavendra-sucrose, [...] encounter Miscellaneous Notes * Telephone Encounter - Timi Penn MD [...] Care Team (Late st Contact Info) Description 07/07/2023 9:00 AM EST Therapy Neuropsychology [facility] [place] [address] [place] [address] Zafar Hood, PhD [address] [place] [address] [address] 07/11/2023 11:00 AM EST Office Visit Gastroenterology, [facility] [address] [facility] [place] [address] Allyssa Mak CRNP [address] [place], [place] [address] 07/15/2023 5:20 PM EDT Office Visit [facility] [address] [facility] [place] [address] Renea Lopez CRNP [address] [place] [address] 04/27/2024 1:00 PM EST Office Visit [facility] [address] [place], [place] [address] Kenn Bliss DO [address] [place] [address] Health Maintenance Due Date Last Done Comments [...] this encounter Medical Devices Implanted Type Area Facility Technician Device Identifier Shelf Expiration Date Model / Serial / Lot Bard Mesh Perfix Plug Implanted:Qty: 1 on 03/17/2014 at OR [facility] Tissue - Non Human 05/17/2018 [id number] / / [id number] documented as of this encounter Care Teams Hot Roller Relationship Specialty Start Date End Date Kenn Bliss DO [address] [place] [address] PCP - General Family Medicine 01/20/18 documented as of this encounter
--- OUTSIDE RECORDS SUMMARY | 2023-10-11 08:27 | External Medical Summary | Summary of Care ---
Author Name Unknown Organization [facility] Address [address] [place] [address] Phone [phone] Care Team Providers Care Game Warden Name Role Phone Kenn Bliss DO Primary Care Provider Reason for Visit * Reason Onset Date Comments Other 07/10/2023 Encounter Details Date Type Department Care Team ([facility] st Contact Info) Description 07/04/2023 Telephone Neurology, [place] Frank Sharma [address] [place] [address] Timi Penn MD [address] [place] [phone] Other Allergies No known active allergiesdocumented as [...] 07/11/2023 11:00 AM EST Office Visit Gastroenterology, [facility] 132 [facility] [place] [address] Allyssa Mak CRNP [address] [facility] [place] [address] 07/15/2023 5:20 PM EDT Office Visit [facility] [address] [facility] [place] [address] Renea Lopez CRNP [address] [place] [address] 08/07/2023 8:00 AM EDT Office Visit Neurosurgery, [place] [address] [place] [address] Jhoana Booth PA-C [address] [place] [address] 08/07/2023 8:00 AM EDT Office Visit Neurology, [place] [address] [place] [phone] Wong Perez MD [address] [place] [address] 04/27/2024 1:00 PM EST Office Visit [facility] [address] [facility] [place] [address] Kenn Bliss DO [address] [place] [address] Health Maintenance Due Date Last Done Comments [...] this encounter Medical Devices Implanted Type Area Registered Dental Assistant Device Identifier Shelf Expiration Date Model / Serial / Lot Bard Mesh Perfix Plug Implanted:Qty: 1 on 03/17/2014 at OR [facility] Tissue - Non Human 05/17/2018 [id number] / / [id number] documented as of this encounter Care Teams Game Warden Relationship Specialty Start Date End Date Kenn Bliss DO [address] [place] [address] PCP - General Family Medicine 01/20/18 documented as of this encounter
--- OUTSIDE RECORDS SUMMARY | 2023-10-11 08:27 | External Medical Summary | Summary of Care ---
Author Name Unknown Organization [facility] Address [address] [place] [address] Phone [phone] Care Team Providers Care Riprap Placing Supervisor Name Role Phone Kenn Bliss DO Primary Care Provider Reason for Visit * Reason Comments Follow Up Pt was referred by glynn sandhu. Pt states having a lot of burping. * Evaluate & Treat - Unlimited Visits (Within 3 days (urgent)) - Pending Review Specialty Diagnoses / Procedures Referred By Neel li Referred To Contact Gastroenterology Diagnoses Poor fluid intake Kenn Bliss DO [address] [place] [address] Referral ID Status Reason Start Date Expiration Date Visits Requested Visits Authorized [id number] Pending Review Specialty Services Required [phone] Encounter Details Date Type Department Care Team ([facility] st Contact Info) Description 07/11/2023 11:00 AM EST Office Visit Gastroenterology, [facility] [address] [place] [address] Allyssa Mak CRNP [address] [place] [address] Burping* Allergies No known active allergiesdocumented as of this encounter (statuses as of 07/11/2023) Medications Medication Sig Dispensed Refills Start Date [...] in the morning. 90 Tablet 1 4 Active Pantoprazole Sodium 20 MG Oral Tablet Delayed Release (Protonix)Indication s:Chronic hiccups Take 1 Tablet by mouth in the morning. 30 minutes before the first meal of the day. Do not crush, split or chew the tablet. 30 Tablet 5 3 024 Discontinued documented as of this encounter (statuses as of 07/11/2023) Active Problems Problem Noted Date Diagnosed Date [...] as of this encounter (statuses as of 07/11/2023) Resolved Problems Problem Noted Date Diagnosed Date Resolved Date Inguinal hernia, right 02/09/201402/05 Dyslipidemia, goal to be determined 04/13/2009 06/16/2014 Overview: Per Lipid Taxonomy. BILAT INGUINAL HERNIA 11/24/20032018 PURE HYPERCHOLESTEROLEM 11/10/200304/04 Overview: Per Lipid Taxonomy. documented as of this encounter (statuses as of 07/11/2023) Immunizations Name Administration Dates Next Due COVID-19 mRNA, LNP-s, No Pre serve, 2-Dose Series ([employer]) 02/04/2021 COVID-19, LNP-s, No Preserve , Raghavendra-sucrose, [...] Sign Reading Time Taken Comments Blood Pressure 108/60 07/11/2023 10:59 AM EST Pulse 70 07/11/2023 10:59 AM EST Temperature 36.5 C (97.7 F) 07/11/2023 10:[address] Respiratory Rate - - Oxygen Saturation - - Inhaled Oxygen Concentration - - Weight 84.9 kg (187 lb 3.2 oz) 07/11/2023 10:59 AM EST Height - - Body Mass Index 25.39 12/23/2022 3:48 PM EDT documented in this encounter Progress Notes * Allyssa Mak CRNP - 07/11/2023 11:00 AM EST DATE OF SERVICE: 07/11/2023 REFERRING PHYSICIAN: Kenn Bliss DO CC: poor fluid intake Office Visit 07/11/2023 :73 year old male with history of colon polyps overdue for recall colon, dyslipidemia, 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 Bliss. Pt was seen and evaluated, chart reviewed. Here with family who provides history. Notes that he is not currently on any medications except vitamin D. Family reports ongoing hiccups, seems worse after he eats. Occurs more so after drinking. Family questions if he swallows a lot of air when he is drinking. There is no report of acid reflux or regurgitation. No dysphagia. No vomiting. No reported pain. No report of black or bloody stools. No diarrhea/constipation. Breakfast: scrambled eggs with cheese, toast, fruit and yogurt, oats and nuts, water and orange juice AM snack: none Lunch: apple peanut butter, apple/cheese, water PM snack: none Dinner: protein, veggies, rice/potatoes, water and lemonade NSAIDs: advil 2 capfuls 2-3 times a week ETOH: rare Tobacco: none Caffeine: none 02/09/2019 07/01/2019 10/11/2019 11/15/2019 08/25/2020 Weight Weight 176 lb 183 lb 2 oz 177 lb 1.6 oz 177 lb 8 oz 178 lb 6.4 oz 09/11/2020 10/11/2020 01/03/2021 03/27/202104/02/2021 12/10/2021 Weight Weight 177 lb 176 lb 179 lb 178 lb 11.2 oz 179 lb 12.8 oz 177 lb 1.6 oz 04/19/2022 05/17/2022 08/15/2022 11/04/2022 11/14/2022 Weight Weight 181 lb 176 lb 176 lb 8 oz 175 lb 3 oz 177 lb 12.8 oz 12/06/2022 12/23/2022 02/03/2023 05/19/2023 07/11/2023 Weight Weight 170 lb 8 oz 170 lb 170 lb 8 oz 175 lb 12.8 oz 187 lb 3.2 oz EGD: none Colonoscopy 2017: Preparation of the colon was fair. - Four 4 to 7 mm polyps in the ascending colon, removed with a cold snare. Resected and retrieved. - Diverticulosis in the sigmoid colon. - The examined portion of the ileum was normal. - Internal hemorrhoids. - The examination was otherwise normal on direct and retroflexion views. Family history of GI malignancy: Past Medical History: Diagnosis Date BILAT INGUINAL HERNIA 11/24/2003 Inguinal hernia, right 02/09/2014 NO KNOWN PROBLEMS Family History Problem Relation Age of Onset Hypertension Father Stroke Father age 72 Mental retardation Sister Heart Disorder Brother pacemaker Arthritis Grandfather (Maternal) Heart Disorder Grandfather (Paternal) in 60's Past Surgical History: Procedure Laterality Date COLONOSCOPY, DIAGNOSTIC (RECTUM) 09/23/2016 adenomatous polyp, diverticulosis, fair prep, repeat 3 yrs/COLONOSCOPY FLEXIBLE PROXIMAL DIAGNOSTICperformed by Roshan Portillo MD at ENDOSCOPY [facility] REPAIR INITIAL INGUINAL HERNIA REDUCIBLE AGE 5 OR MORE 04/21/2013 04/21/2013 at [facility], Repair open left direct inguinal hernia with Aditya ligament repair with Arun Landaverde with virtual assistant Juarez Lopez PA-C REPAIR INITIAL INGUINAL HERNIA REDUCIBLE AGE 5 OR MORE 03/17/2014 REPAIR INITIAL INGUINAL HERNIA REDUCIBLE AGE 5 OR MORE performed by Denzel Villeda MD at OR [facility] VASECTOMY 8 yrs ago Social History Tobacco Use Smoking status: Never Smokeless tobacco: Never Vaping Use Vaping Use: Never used Substance Use Topics Alcohol use: Yes Comment: 1.5 beers a day Drug use: Yes Types: Marijuana Comment: once a year Review of patient's allergies indicates: No Known Allergies Current Outpatient Medications Medication Sig Dispense Refill [...] mouth in the morning. 90 Capsule 3 Donepezil HCl 10 MG Oral Tablet (Aricept) [...] taking: Reported on 07/11/2023) 180 Tablet 3 No current facility-administered medications for this visit. REVIEW OF SYSTEMS: All other findings negative except as noted in HPI. EXAM: BP 108/60 | Pulse 70 | Temp 36.5 C (97.7 F) (Temporal Artery) | Wt 84.9 kg (187 lb 3.2 oz) | BMI 25.39 kg/m | BSA 2.08 m GENERAL: Well developed and well nourished in no acute distress. SKIN: No rashes, ulcers, jaundice or spider angiomata. HEENT: Normocephalic, sclera clear, NECK: Supple, LUNGS: Clear to auscultation bilaterally, no respiratory distress or accessory muscles used. HEART: Regular rate & rhythm, no murmurs and no gallops. ABDOMEN: Normal bowel sounds, soft and nontender, no masses or hepatosplenomegaly. EXTREMITIES: No palmar erythema, no ankle edema, no skin discoloration, NEURO: No lateralizing findings. Sensory/Motor grossly normal. 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 His weight has remained stable since 2019 andhas actually gained 12 lbs - Trial of Pantoprazole 20 mg once daily - If no improvement, plan for EGD - May start Omeprazole 20 mg once daily - Adenomatous colon polyp 2016 - Due for recall in 2019 - Educated on importance for follow up to decrease rates of colon cancer - Verbalized understanding but not interested - Colonoscopy refused - ED for emergencies - Please call with any questions or concerns RETURN TO CLINIC: 1 month I spent a total of 45 minutes on the date of service in review of patient's record, and previously obtained information in person and appropriate medical visit, discussion and education of plan, withpatient and/or caregiver, placing orders for tests/referral/procedures as medically necessary and documentation of pertinent clinical information in patient's medical records for their visit today. KRISTIN Day 07/11/2023 11:48 AM documented in this encounter Nursing Notes * Devora Isidro MED ASSIST - 07/11/2023 11:00 AM EST Patient identified by wristband. Parent verified patient's name, birthdate, surgeon, allergies, procedure & laterality Chief Complaint Patient presents with Follow Up Pt was referred by pcp. Pt states having a lot of burping. documented in this encounter Plan of Treatment Upcoming Encounters Date Type Department Care Team (Late st Contact Info) Description 07/15/2023 5:20 PM EDT Office Visit Family Practice [facility] [address] [place] [address] Renea Lopez CRNP [address] [place] [address] 08/07/2023 8:00 AM EDT Office Visit Neurosurgery, [place] [address] [place] [address] Jhoana Booth PA-C [address] [place] [address] 08/07/2023 8:00 AM EDT Office Visit Neurology, [place] [address] [place] [phone] Wong Perez MD [address] [place] [address] 08/11/2023 12:30 PM EDT Office Visit Gastroenterology, [facility] [address] [place] [address] Allyssa Mak CRNP [address] [facility] [id number] 04/27/2024 1:00 PM EST Office Visit Family [facility] [address] [place] [address] Kenn Bliss DO [address] [place] [address] Health Maintenance Due Date Last Done Comments [...] this encounter Medical Devices Implanted Type Area Final Inspector Device Identifier Shelf Expiration Date Model / Serial / Lot Bard Mesh Perfix Plug Implanted:Qty: 1 on 03/17/2014 at OR [facility] Tissue - Non Human 05/17/2018 [id number] / / [id number] documented as of this encounter Visit Diagnoses Diagnosis Burping- Primary Flatulence, eructation, and gas pain documented in this encounter Care Teams Riprap Placing Supervisor Relationship Specialty Start Date End Date Kenn Bliss DO [address] [place] [address] PCP - General Family Medicine 01/20/18 documented as of this encounter"
--- OUTSIDE RECORDS SUMMARY | 2023-10-11 08:27 | External Medical Summary | Summary of Care ---
Author Name Unknown Organization [facility] Address [address] [place] [address] Phone [phone] Care Team Providers Care Fitness Floor Attendant Name Role Phone Kenn Bliss DO Primary Care Provider Reason for Visit * Reason Onset Date Comments Other 07/14/2023 Encounter Details Date Type Department Care Team (Late st Contact Info) Description 07/04/2023 Telephone Neurology, [place] Frank Sharma [address] [place] [address] Timi Penn MD [address] [place] [address] Other Allergies No known active allergiesdocumented as of this encounter (statuses as of 07/22/2023) Medications Medication Sig Dispensed Refills Start Date [...] as of this encounter (statuses as of 07/22/2023) Active Problems Problem Noted Date Diagnosed Date [...] as of this encounter (statuses as of 07/22/2023) Resolved Problems Problem Noted Date Diagnosed Date Resolved Date Inguinal hernia, right 02/09/201402/05 Dyslipidemia, goal to be determined 04/13/2009 06/16/2014 Overview: Per Lipid Taxonomy. BILAT INGUINAL HERNIA 11/24/20032018 PURE HYPERCHOLESTEROLEM 11/10/200304/04 Overview: Per Lipid Taxonomy. documented as of this encounter (statuses as of 07/22/2023) Immunizations Name Administration Dates Next Due COVID-19 mRNA, LNP-s, No Pre serve, 2-Dose Series ([employer]) 02/04/2021 COVID-19, LNP-s, No Preserve , Raghavendra-sucrose, [...] 08/07/2023 8:00 AM EDT Office Visit Neurosurgery, [place] [address] [place] [address] Jhoana Booth PA-C [address], [place] [id number] 08/07/2023 8:00 AM EDT Office Visit Neurology, [place] [address] [place] [address] Wong Perez MD [address] [place] [address] 08/11/2023 12:30 PM EDT Office Visit Gastroenterology, [facility] [address] [place] [address] Allyssa Mak CRNP [address] [place] [address] 04/27/2024 1:00 PM EST Office Visit Family Practice [facility] [address] [place] [address] Kenn Bliss DO [address] [place] [address] Health Maintenance Due Date Last Done Comments [...] this encounter Medical Devices Implanted Type Area Detective Bureau Chief Device Identifier Shelf Expiration Date Model / Serial / Lot Bard Mesh Perfix Plug Implanted:Qty: 1 on 03/17/2014 at OR [facility] Tissue - Non Human 05/17/2018 [id number] / / [id number] documented as of this encounter Care Teams Fitness Floor Attendant Relationship Specialty Start Date End Date Kenn Bliss DO [address] [facility] [place] [address] PCP - General Family Medicine 01/20/18 documented as of this encounter
--- OUTSIDE RECORDS SUMMARY | 2023-10-11 08:27 | External Medical Summary ---
Author Name Unknown Address Unknown Organization K01:[facility] [place] [address] [facility] [address] Laboratory Report Ordering Provider Test Date Status MISAEL COUCH 08/04/2023 15:12:39 Final Anticoagulation may affect t esting. Refer to [id number] Test Catalog for a list of effects. Observation Date Value Abnormality Reference (Units ) Status aPTT panel - Platelet poor plasma 08/04/2023 15:12:39 35 21-38 (seconds) Final Performing Location [facility] [place] [address] [place] [address]
--- OUTSIDE RECORDS SUMMARY | 2023-10-11 08:27 | External Medical Summary | Summary of Care ---
Author Name Unknown Organization [facility] Address [address] [place] [address] Phone [phone] Care Team Providers Care Esthetician Permanent Makeup Artist Name Role Phone Kenn Bliss DO Primary Care Provider Encounter Details Date Type Department Care Team (Late st Contact Info) Description 07/04/2023 Telephone Neurology, [place] Frank Sharma [address] [place] [phone] Timi Penn MD [address] [place] [address] Allergies No known active allergiesdocumented as of this encounter (statuses as of 07/07/2023) Medications Medication Sig Dispensed Refills Start Date [...] as of this encounter (statuses as of 07/07/2023) Active Problems Problem Noted Date Diagnosed Date [...] as of this encounter (statuses as of 07/07/2023) Resolved Problems Problem Noted Date Diagnosed Date Resolved Date Inguinal hernia, right 02/09/201402/05 Dyslipidemia, goal to be determined 04/13/2009 06/16/2014 Overview: Per Lipid Taxonomy. BILAT INGUINAL HERNIA 11/24/20032018 PURE HYPERCHOLESTEROLEM 11/10/200304/04 Overview: Per Lipid Taxonomy. documented as of this encounter (statuses as of 07/07/2023) Immunizations Name Administration Dates Next Due COVID-19 [...] EST Sure! * Telephone Encounter - Timi Pnen MD - 07/04/2023 2:41 PM EST Case [...] 07/11/2023 11:00 AM EST Office Visit Gastroenterology, [facility] [address] [place] [address] Allyssa Mak CRNP [address] [place] [address] 07/15/2023 5:20 PM EDT [facility] [address] [place] [address] Renea Lopez CRNP [address] [place] [address] 04/27/2024 1:00 PM EST [facility] [address] [place] [address] Kenn Bliss DO [address] [place] [address] Health Maintenance Due Date Last Done Comments [...] this encounter Medical Devices Implanted Type Area Toll Line Mechanic Device Identifier Shelf Expiration Date Model / Serial / Lot Bard Mesh Perfix Plug Implanted:Qty: 1 on 03/17/2014 at OR [facility] Tissue - Non Human 05/17/2018 [id number] / / [id number] documented as of this encounter Care Teams Esthetician Permanent Makeup Artist Relationship Specialty Start Date End Date Kenn Bliss DO [address] [place] [address] PCP - General Family Medicine 01/20/18 documented as of this encounter
--- OUTSIDE RECORDS SUMMARY | 2023-10-11 08:27 | External Medical Summary | Summary of Care ---
Author Name Unknown Organization [facility] Address [address] [place] [address] Phone [phone] Care Team Providers Care Senior Oracle Pl Sql Developer Name Role Phone Kenn Bliss DO Primary Care Provider Encounter Details Date Type Department Care Team (Late st Contact Info) Description 07/04/2023 Telephone Neurology, [place] Frank Sharma [address] [place] [phone] Timi Penn MD [address] [place] [address] Allergies No known active allergiesdocumented as of [...] 07/11/2023 11:00 AM EST Office Visit Gastroenterology, [facility] [address] [place] [address] Allyssa Mak CRNP [address] [place] [address] 07/15/2023 5:20 PM EDT Office Visit [facility] [address] [place] [address] Renea Lopez CRNP [address] [place] [address] 04/27/2024 1:00 PM EST Office Visit [facility] [address] [place] [address] Kenn Bliss DO [address] [place] [address] Health Maintenance Due Date Last Done Comments [...] this encounter Medical Devices Implanted Type Area Pupil Personnel Services Director Device Identifier Shelf Expiration Date Model / Serial / Lot Bard Mesh Perfix Plug Implanted:Qty: 1 on 03/17/2014 at OR [facility] Tissue - Non Human 05/17/2018 [id number] / / [id number] documented as of this encounter Care Teams Senior Oracle Pl Sql Developer Relationship Specialty Start Date End Date Kenn Bliss DO [address] [address] PCP - General Family Medicine 01/20/18 documented as of this encounter
--- OUTSIDE RECORDS SUMMARY | 2023-10-11 08:28 | External Medical Summary | Summary of Care ---
Author Name Unknown Organization [facility] Address [address] [place] [address] Phone [phone] Care Team Providers Care [employer] Principal Name Role Phone Kenn Bliss DO Primary Care Provider Reason for Visit * Reason Onset Date Comments Medication Question 06/04/2023 02 Dayami engel Encounter Details Date Type Department Care Team (Late st Contact Info) Description 06/04/2023 Telephone Neurology, [place] Frank Sharma [address] [place] [address] Madie Sanchez MD [address] [place] [place] [address] Medication Question (02 Dayami padillail) Allergies No known active allergiesdocumented as of this encounter (statuses as of 06/06/2023) Medications Medication Sig Dispensed Refills Start Date [...] on 05/19/2023 Modafinil 100 MG Oral Tablet (Provigil) Take 1 Tablet by mouth in the morning. 30 Tablet 3 06/04/2023 Active documented as of this encounter (statuses as of 06/06/2023) Active Problems Problem Noted Date Diagnosed Date [...] as of this encounter (statuses as of 06/06/2023) Resolved Problems Problem Noted Date Diagnosed Date Resolved Date Inguinal hernia, right 02/09/201402/05 Dyslipidemia, goal to be determined 04/13/2009 06/16/2014 Overview: Per Lipid Taxonomy. BILAT INGUINAL HERNIA 11/24/20032018 PURE HYPERCHOLESTEROLEM 11/10/200304/04 Overview: Per Lipid Taxonomy. documented as of this encounter (statuses as of 06/06/2023) Immunizations Name Administration Dates Next Due COVID-19 [...] encounter Miscellaneous Notes * Telephone Encounter - Dayami Paz OSA - 06/06/2023 6:54 AM EST Please provide diagnosis code for medication. Thank you, Dayami Paz Medication Rn Training [facility] PH: [phone] 06/06/2023,6:54 AM * Telephone Encounter - Kriss Osborne OSA - 06/04/2023 3:41 PM EST Received prior auth for modafinil 100 mg from [employer] . It has been scanned in for review. documented in this encounter Plan of Treatment Upcoming Encounters Date Type Department Care Team (Late st Contact Info) Description 06/26/2023 4:40 PM EST Office Visit [facility] [address] [facility] [place] [address] Kenn Bliss DO [address] [place] [address] 09/18/2023 9:30 AM EDT Telemedicine Neurology, [place] [address] [facility] [address] [place] [address] Madie Sanchez MD [address] [place] [address] [place] [address] Health Maintenance Due Date Last Done Comments COLONOSCOPY-EVERY 3 YRS AGES 18-100 09/24/2019 09/23/2016, 09/23/2016 COVID-19 Vaccine (4 - 2022-24 season) 2023 08/11/2021, 02/04/2021, 07/03/2020 Depression Screening 11/05/2023 11/04/2022 Lipid Panel 10/09/2027 10/08/2022, 04/04, 01/20/2018, Additional history exists DTaP,Tdap,and Td Vaccines (4 - Td or [...] this encounter Medical Devices Implanted Type Area Cable Former Device Identifier Shelf Expiration Date Model / Serial / Lot Bard Mesh Perfix Plug Implanted:Qty: 1 on 03/17/2014 at OR [facility] Tissue - Non Human 05/17/2018 [id number] / / [id number] documented as of this encounter Care Teams [employer] Principal Relationship Specialty Start Date End Date Kenn Bliss DO [address] [place] [address] PCP - General Family Medicine 01/20/18 documented as of this encounter
--- OUTSIDE RECORDS SUMMARY | 2023-10-11 08:28 | External Medical Summary | Summary of Care ---
Author Name Unknown Organization [facility] Address [address] [place] [address] Phone [phone] Care Team Providers Care Military Science Teacher Name Role Phone Bliss Kenn Torres DO Primary Care Provider Reason for Visit * Reason Comments NEW PATIENT Memory Problems Encounter Details Date Type Department Care Team ([facility] Contact Info) Description 04/17/2023 8:00 AM [facility] Neuropsychology, [place] [address], [place] [id number] Chely Carrasquillo, [facility] [address], [place] [id number] Mild late onset Alzheimer's dementia without behavioral disturbance, psychotic disturbance, mood disturbance, or anxiety (HCC)* Allergies No known active allergiesdocumented as of this encounter (statuses as of 04/18/2023) Medications Medication Sig Dispensed Refills Start Date [...] the day.. 90 Tablet 3 12/23/2022 Active Melatonin 3 MG Oral Capsule Take 1 Capsule by mouth at bedtime. 0 Active Pantoprazole Sodium 20 MG Oral Tablet Delayed Release (Protonix)Indications: Chronic hiccups Take 1 Tablet by mouth in the morning. 30 minutes before the first meal of the day. Do not crush, split or chew the tablet. 30 Tablet 5 03/11/2023 Active Venlafaxine HCl ER 37.5 MG Oral Capsule Extended Release 24 Hour (Effexor XR) Take 1 Capsule by mouth in the morning. 30 Capsule 3 03/24/2023 Active B-12 1000 MCG Oral Capsule Take 1 Capsule by mouth in the morning. 90 Capsule 3 03/24/2023 Active QUEtiapine Fumarate 25 MG Oral Tablet (SEROquel)Indications: Memory change,Subarachnoid hemorrhage (HCC),Cerebral ventriculomegaly take 1 tablet by mouth at bedtime 90 Tablet 1 03/25/2023 Active Ondansetron HCl 4 MG Oral Tablet (Zofran) take 1 tablet by mouth every 8 hours if needed for nausea 20 Tablet 5 03/25/2023 Active Sildenafil Citrate 50 MG Oral Tablet take 1 tablet by mouth once daily if needed for ERECTILE DYSFUNCTION 30 Tablet 0 03/25/2023 Active documented as of this encounter (statuses as of 04/18/2023) Active Problems Problem Noted Date Diagnosed Date [...] as of this encounter (statuses as of 04/18/2023) Resolved Problems Problem Noted Date Diagnosed Date Resolved Date Inguinal hernia, right 02/09/201402/05 Dyslipidemia, goal to be determined 04/13/2009 06/16/2014 Overview: Per Lipid Taxonomy. BILAT INGUINAL HERNIA 11/24/20032018 PURE HYPERCHOLESTEROLEM 11/10/200304/04 Overview: Per Lipid Taxonomy. documented as of this encounter (statuses as of 04/18/2023) Immunizations Name Administration Dates Next Due COVID-19 [...] on file documented as of this encounter Patient Instructions * Patient Instructions* Chely Carrasquillo, PROPERTY TECHNICIAN - 04/18/2023 3:59 PM EST Images from the original note were not included. Education and Resources about Dementia One of the most difficult aspects of caring for a person with dementia is knowing how to respond tothe changes in behavior that the underlying disease produces. Education and support are frequently very beneficial in managing these challenging situations. Caregiving can be physically and mentally demanding, so it is very important that Mr. Angel Barrera family members care for themselvesas well. The organizations and websites listed below are good sources of information regarding upcoming public events, caregiver resources, educational materials, and support groups. [facility] Agencies on Aging (Https://aging.pa.gov). See below for individual county's contact information. The Alzheimer's Association (www.alz.org). Alzheimer's Association 25/11 Helpline: [phone] (forimmediate support/guidance/education/help if you find yourself in a situation where you are unsure what to do). [facility] Alzheimer's Association Cordage Sales Representative: Cami Flowers. Phone number: [phone], ext [phone] Family Caregiver [place] (www.caregiver.org) Recommended Books: "Six Steps to Managing Alzheimer's Disease and Dementia- A Guide for Families" by Isabella Jerome O'Abiodun (2021) The Alzheimer's Disease Caregiver's Handbook- What to Remember When They Forget by Dr. Carol Sampson and Miriam West The 36-Hour Day: A Family Guide to Caring for People Who Have Alzheimer Disease, Other Dementias, and Memory Loss by Meri Lopez MA and Ike Paulino MD, MPH (2020) Improving Your Memory- How to Remember What You're Starting to Forget by Neelima Lemus and Noa Foy "Playbook for Alzheimer's Caregivers: A Practical Tips Guide" by Perfecto Cerda. A free online booklet from graduation coach at [facility] whose had Alzheimer's. Local Resources *Community Resource Finder: You can search for adult day programs, elder law attorneys, transportation, care managers, transportation and home care, etc. https://www.communityresourcefinder.org *[place] Link https://www.carelink.pa.gov *PA211 https://www.pa211.org/get-help/older-adults/ Seniors Blue Book (more for sprakers and south/[facility]) https://www.MetaChannelssOWM 767-783-6757, ext. 710 [facility] https://www.mycil.org/ Aging Life Care Association (care managers) https://www.midatlanticalca.org/ National [place] on Aging: My Benefits Checkup (see which local services/resources you might qualify for) https://www.benefitscheckup.org/ Care [place] (to search for local resources involving older individuals, including caregiver resources and elder care services) Http://www.care[place].org/ [facility] Agency on Aging: AAA is a division of the [place] Department of Aging. Provides resources on adult day services, in-home meals, housing, medicare counseling, legal assistance, transportation, caregiver support, etc. Each caregiver is assigned a dog day care attendant who will come to the home to conduct a comprehensive assessmentof the needs and develop a plan of care. [facility]: [address] [place] [phone]. Advance directives and living will What is an advance directive? An advance directive is a legal document that provides guidance to your healthcare team and loved ones on the types of care you want or dont want to receive. Advance directives are also used to appoint someone you trust to make medical decisions on your behalf if you ever cant communicate your wishes yourself. You can create an advance directive at any time. With advance directives, you can: Document your priorities and preferences for medical care Designate your healthcare preferences in advance so your loved ones dont have to make difficult decisions on your behalf Designate someone to make decisions for you if you become unable to Experience peace of mind and a sense of control over some of lifes most important decisions Call us at [phone] to learn more about advance health care directives and planning. Elder law attorneys can assist you in estate planning, hathaway and living hathaway, power of crm functional analyst, trusts, mcc care planning, etc. documented in this encounter Progress Notes * Chely Carrasquillo LCSW - 04/17/2023 9:40 AM EST [facility] [place] [address] Patient location: HOME. I was in a hospital or clinic location. After connecting through televideo,patient was verified with two unique identifiers. Patient (or authorized legal authorization representative) was then informed that this was a Telemedicine visit and being conducted confidentially over secure lines. Methods to assure confidentiality were taken. Patient acknowledged consent and understanding of pr ivacy and security of the Telemedicine visit. The patient agreed to participate. My office door was closed. No one else was in the room with me. I informed the patient that I have reviewed their record in [facility] and presented the opportunity for them to ask any questions regarding the visit today. The patient agreed to participate. Provider reviewed elements of Outpatient Services Description including limits of confidentiality, how to contact the department, risks and benefits of treatment and consent for treatment. Confirm patient's location (and address if different from the home address documented in [facility]) at the time of this appointment: verified information on file. Outpatient Treatment Summary Admission Date: 04/17/2023 Discharge Date: No. Sessions Attended: 1 Chief Complaint: "Supportive information and resources" Modalities Utilized: Family therapy via telehealth visit using CBT, PA, and reality therapies. Specifically: Supportive listening Cognitive behavioral therapy Interpersonal therapy Problem solving Behavioral Activation Motivational interviewing Acceptance & Commitment Therapy (ACT) Diagnosis: Caregiver Stress for patient's , Hayley Patient is diagnosed with Mild late onset Alzheimer's dementia without behavioral disturbance, psychotic disturbance, mood disturbance, or anxiety (HCC) Total time spent on visit: 60 minutes Provider met with patient's , Hayley, to assess for patient needs and provide support/resources. Provider introduced role, referral provider, and reason for referral. Hayley reviewed the events that occurred this year, since November, that have affected her . During the summer Ciro attempted a solo trip hiking in the [facility] in [place]. He had experienced several falls along with difficulty walking and was discovered by hikers in the area. Hewas taken to the local hospital for SDH and subsequent rehab after his trauma. Since then, he has returned home and has had cognition difficulties. He has been seeing a local neurologist for some time now, and she was not aware of the extent of some of his medical concerns until now. There were concerns with imaging studies with enlarged ventricles within his brain and sought a second opinion. The second opinion revealed his current diagnosis and suggested that the recent brain injury has unmasked/accelerated signs associated with the underlying disease (made the symptoms more prominent). Hayley was able to recall that there were more signs for about 3 years prior to this as his friends were noticing more social withdrawn and saw how he had several kinds of memory supplements with taped notes along the wall. They share a 17 year old daughter, and he does have older children as well. They support him as much as they can. 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 She is utilizing family and friends during this time. While Ciro's brain injury continues to heal, from the concussion as well, its hard to understand how much will be considered his new baseline. Continued support from the treatment team, along with therapy services of PT/OT and Speech will assist with understanding potential progress. Hayley notes that Ciro does have periods of being more withdrawn and would need prompting to initiate some tasks, such as bathing and shaving. He was very active since retiring, there were noted concerns with some changes with memory,but since the accident it has affected him greatly. Routine assessments of HELGA/PHQ and CSSRS were not implemented during this visit and will complete when clinically appropriate. MEDICAL PROBLEMS Past Medical History: Diagnosis Date BILAT INGUINAL HERNIA 11/24/2003 Inguinal hernia, right 02/09/2014 NO KNOWN PROBLEMS CURRENT MEDICATIONS: Current Outpatient Medications Medication Sig Dispense Refill [...] meal of the day.. 90 Tablet 3 Melatonin 3 MG Oral Capsule Take 1 Capsule by mouth at bedtime. Pantoprazole Sodium 20 MG Oral Tablet Delayed Release (Protonix) Take 1 Tablet by mouth in the morning. 30 minutes before the first meal of the day. Do not crush, split or chew the tablet. 30 Tablet 5 Venlafaxine HCl ER 37.5 MG Oral Capsule Extended Release 24 Hour (Effexor XR) Take 1 Capsule by mouth in the morning. 30 Capsule 3 B-12 1000 MCG Oral Capsule Take 1 Capsule by mouth in the morning. 90 Capsule 3 QUEtiapine Fumarate 25 MG Oral Tablet (SEROquel) take 1 tablet by mouth at bedtime 90 Tablet 1 Ondansetron HCl 4 MG Oral Tablet (Zofran) take 1 tablet by mouth every 8 hours if needed for Tablet 5 Sildenafil Citrate 50 MG Oral Tablet take 1 tablet by mouth once daily if needed for ERECTILE DYSFUNCTION 30 Tablet 0 No current facility-administered medications for this visit. Living Condition: Resides with spouse in their 1 story home ADL's: Fairly independent, requires prompting and cueing for hygiene care Daily support needs:Supervision/companionship Transportation: , friends Behaviors/Concerns: Sleepiness, apathy Psych history: Denies Mood: Not assessed Additional Life Stressors: Adjustment to illness, lifestyle changes Fall/Safety Risks: Yes 25/11 Care giving needs: Supervision, support Life Alert/Security Sytem: would benefit Who does patient call in crisis? , 911 Supports: and daughters, friends National Suicide Prevention Lifeline: National Crisis Text Line: 351367 Text: 860 Veterans Crisis Line: Nearest [facility]- Text 223175 or Dial 504 and Press 25/11. Crisis Intervention Numbers for Selected [facility] Within the [facility]: [facility]: [facility] Crisis Intervention: [phone] | [phone] [facility]: , [facility] [place]: , [facility] [place] Crisis Intervention Services [facility]: , Choose Option 1, [facility] of Costuming Supervisor [place]: [facility] - Crisis Intervention [facility]- [phone] [facility]: , [facility] - Crisis Services [facility]: , [employer] ([facility]) [place]: , Jono Alexandre - Mental Health Crisis Intervention Services [facility] Crisis: [phone] or [place], [place], [place] and [place]-[phone] or [phone] or [phone] [place]: [facility] Lifelines: [phone] or [phone] [place]/[facility]: , [facility] - Crisis Line [place]: [place]/[facility]/ID [facility] Lifelines: [phone] or [facility]: [place] [facility]: [facility] [place]: [place] Crisis [facility]: [facility] [phone] [place]: [phone] [place]: [place] Crisis [place]: [phone] or [phone] [facility] [phone] or [facility]: [phone] [facility]: [facility]--[phone] or [facility]: [facility] - or Jan/Clemente [phone] TREATMENT PLAN See separate document in client chart for treatment plan. Provider will coordinate with treatment team to allow for seamless coordination of care which includes interaction with PCP's, speciality services, and referrals as agreed upon during treatment session. Provider offered and reviewed the following educational material: Alzheimer's Association( https://alzfdn.org/afatealroom25/11 HELPLINE [phone] Home Health and mcc planning. Hayley would like to transition to hiring care staff for the Spring to reduce the strain and burden on friends and family. Encouraged personal outreach and support through use of local resources which were reviewed. Discussed day programs and senior centers to work on engaging in daily socialization/interaction tocontinue slowing progression of NCD. Provider will gather a support packet which includes material for in home services, education regarding the current diagnosis, and how to provide care and assistance when struggling with challenging behaviors. Will email to address on file and review during next scheduled appointment. Referrals: None Follow up: Return home video for 06/02/23 at 8 AM Chely Carrasquillo LCSW [facility] Division of Psychiatry & Behavioral Medicine Neuropsychology, [facility] Memory and Cognition [address] [facility] [address] documented in this encounter Plan of Treatment Upcoming Encounters Date Type Department Care Team (Late st Contact Info) Description 05/19/2023 8:40 AM EST Office Visit Neurology [facility] [address] [place] [address] Indira Ramirez MD [address] [facility] [place], [place] [address] 06/02/2023 8:00 AM EST Telemedicine Neuropsychology, [place] [address] [place] [address] Chely Carrasquillo LCSW [address] [place] [address] 06/20/2023 1:00 PM EST Telemedicine Gastroenterology, [facility] [address] [facility] [place] [address] Elie Chase MD [address] [place] [address] 06/26/2023 4:40 PM EST Office Visit Family Practice [facility] [address] [place] [address] Kenn Bliss DO [address] [place] [address] 09/18/2023 9:30 AM EDT Telemedicine Neurology, [place] [address] [facility] [address] [place] [address] Madie Sanchez MD [address] [place] [address] [place] [address] Health Maintenance Due Date [...] this encounter Medical Devices Implanted Type Area Check Examiner Device Identifier Shelf Expiration Date Model / Serial / Lot Bard Mesh Perfix Plug Implanted:Qty: 1 on 03/17/2014 at OR [facility] Tissue - Non Human 05/17/2018 [id number] / / [id number] documented as of this encounter Visit Diagnoses Diagnosis Mild late onset Alzheimer's dementia without behavioral disturbance, psychotic disturbance, mood disturbance, or anxiety (HCC)- Primary documented in this encounter Care Teams Military Science Teacher Relationship Specialty Start Date End Date Kenn Bliss DO [address] [place] [address] PCP - General Family Medicine 01/20/18 documented as of this encounter
--- OUTSIDE RECORDS SUMMARY | 2023-10-11 08:28 | External Medical Summary | Summary of Care ---
Author Name Unknown Organization [facility] Address [address] [place] [address] Phone [phone] Care Team Providers Care Property Custodian Name Role Phone Kenn Bliss DO Primary Care Provider Reason for Visit * Reason Onset Date Comments Other 06/04/2023 Encounter Details Date Type Department Care Team ([facility] st Contact Info) Description 06/04/2023 Telephone Neurology, [address] [place] [address] Madie Sanchez MD [address] [place] [id number] Other Allergies No known active allergiesdocumented as of this encounter (statuses as of 06/04/2023) Medications Medication Sig Dispensed Refills Start Date [...] Additional Information Patient not taking.Reported on 05/19/2023 documented as of this encounter (statuses as of 06/04/2023) Active Problems Problem Noted Date Diagnosed Date [...] as of this encounter (statuses as of 06/04/2023) Resolved Problems Problem Noted Date Diagnosed Date Resolved Date Inguinal hernia, right 02/09/201402/05 Dyslipidemia, goal to be determined 04/13/2009 06/16/2014 Overview: Per Lipid Taxonomy. BILAT INGUINAL HERNIA 11/24/20032018 PURE HYPERCHOLESTEROLEM 11/10/200304/04 Overview: Per Lipid Taxonomy. documented as of this encounter (statuses as of 06/04/2023) Immunizations Name Administration Dates Next Due COVID-19 [...] encounter Miscellaneous Notes * Telephone Encounter - Sally Dickson OSA - 06/04/2023 11:25 AM EST Neuroscience Phone Call Form- Clinic has 24-48 hours to respond to caller If caller is calling back before that timeframe- There is no need to send another message to the pool, update current TE [facility] Neurology Pool- All messages go through the [facility] Neuro Tutor Coordinator- [id number] Neurology Pool Numbers- [place] patients - follow normal process Ops [facility] Neurology ([place])- [id number] [facility] ([place] and [facility] Only)- [id number] Neurosurgery Pool Numbers- [place] patients- follow normal process Ops re Neurosurgery [facility] ([place])- [id number] Ops req Neurosurgery [facility] ([place] Only) [id number] Requested Information from caller: Who is calling (not pt) name: Hayley relationship: Provider patient is established with: Daniel What is the concern or issue they are having: calling back to speak to provider- phone number left is inactive How long has the issue been going on: n/a Any additional details to add: no Pts phone number for nurse to call back: [phone] Please make sure you verify pharmacy for anything medication related. Form to be used for established patients only (not new patients) * Telephone Encounter - Madie Sanchez MD - 06/04/2023 11:06 AM EST Called Hayley and left VMM to see if she and Mr Irina would be interested in neuropsych testing, following recent appt with Dr Ramirez. Also left VMM on home phone. documented in this encounter Plan of Treatment Upcoming Encounters Date Type Department Care Team (Late st Contact Info) Description 06/26/2023 4:40 PM EST Office Visit [facility] [address] [place] [address] Kenn Bliss DO [address] [place] [address] 09/18/2023 9:30 AM EDT Telemedicine Neurology, [place] [address] [facility] [address] [place] [address] Madie Sanchez MD [address] [place] [address] [place] [address] Health Maintenance Due Date [...] this encounter Medical Devices Implanted Type Area Open Claims Representative Device Identifier Shelf Expiration Date Model / Serial / Lot Bard Mesh Perfix Plug Implanted:Qty: 1 on 03/17/2014 at OR [facility] Tissue - Non Human 05/17/2018 [id number] / / [id number] documented as of this encounter Care Teams Property Custodian Relationship Specialty Start Date End Date Kenn Bliss DO [address] [place] [address] PCP - General Family Medicine 01/20/18 documented as of this encounter
--- OUTSIDE RECORDS SUMMARY | 2023-10-11 08:28 | External Medical Summary | Summary of Care ---
Author Name Unknown Organization [facility] Address [address] [place] [address] Phone [phone] Care Team Providers Care Media Planner / Buyer Name Role Phone Kenn Bliss DO Primary Care Provider Encounter Details Date Type Department Care Team (Late st Contact Info) Description 05/29/2023 Telephone Access Center, [place] [address] [facility] *DO NOT REMOVE THIS DEPARTMENT* [place] [phone] Services, Scheduling [address] [place] [address] Allergies No known active allergiesdocumented as of this encounter (statuses as of 05/29/2023) Medications Medication Sig Dispensed Refills Start Date [...] as of this encounter (statuses as of 05/29/2023) Active Problems Problem Noted Date Diagnosed Date [...] as of this encounter (statuses as of 05/29/2023) Resolved Problems Problem Noted Date Diagnosed Date Resolved Date Inguinal hernia, right 02/09/201402/05 Dyslipidemia, goal to be determined 04/13/2009 06/16/2014 Overview: Per Lipid Taxonomy. BILAT INGUINAL HERNIA 11/24/20032018 PURE HYPERCHOLESTEROLEM 11/10/200304/04 Overview: Per Lipid Taxonomy. documented as of this encounter (statuses as of 05/29/2023) Immunizations Name Administration Dates Next Due COVID-19 [...] encounter Miscellaneous Notes * Telephone Encounter - Oralia Monteiro OSA - 05/29/2023 9:16 AM EST Called patient to make aware appt cancelled on 06/20 and with Elie Chase patient will need to be rescheduled. Thank you documented in this encounter Plan of Treatment Upcoming Encounters Date Type Department Care Team (Late st Contact Info) Description 06/02/2023 8:00 AM EST Telemedicine Neuropsychology, [place] [address] [place] [address] Chely Carrasquillo, [facility] [address] [place] [address] 06/02/2023 4:45 PM EST Imaging Radiology [address] [facility] [place] [address] 06/26/2023 4:40 PM EST Office Visit Family Practice [facility] [address] [facility] [place] [address] Kenn Bliss, 132 [facility] [place] [address] 09/18/2023 9:30 AM EDT Telemedicine Neurology, [place] 3 [facility] 132 [place] [address] Madie Sanchez MD [address] [place] [address] [place] [address] Health Maintenance Due Date Last Done Comments [...] this encounter Medical Devices Implanted Type Area Greens Or Grounds Superintendent Device Identifier Shelf Expiration Date Model / Serial / Lot Bard Mesh Perfix Plug Implanted:Qty: 1 on 03/17/2014 at OR [facility] Tissue - Non Human 05/17/2018 [id number] / / [id number] documented as of this encounter Care Teams Media Planner / Buyer Relationship Specialty Start Date End Date Kenn Bliss DO [address] [place] [address] PCP - General Family Medicine 01/20/18 documented as of this encounter
--- OUTSIDE RECORDS SUMMARY | 2023-10-11 08:28 | External Medical Summary | Summary of Care ---
Author Name Unknown Organization [facility] Address [address] [place] [address] Phone [phone] Care Team Providers Care Systems Engineer Name Role Phone Kenn Bliss DO Primary Care Provider Reason for Visit * Reason Onset Date Comments Precert Denied 06/04/2023 modfinil Encounter Details Date Type Department Care Team (Late st Contact Info) Description 06/04/2023 Telephone Neurology, [place] Frank Sharma [address] [place] [address] Madie Centeno MD [address] [place] [address] Precert Denied (modfinil) Allergies No known active allergiesdocumented as of this encounter (statuses as of 06/09/2023) Medications Medication Sig Dispensed Refills Start Date [...] Sodium 20 MG Oral Tablet Delayed Release (Protonix)Indications :Chronic hiccups Take 1 Tablet by mouth in the morning. 30 minutes before the first meal of the day. Do not crush, split or chew the tablet. 30 Tablet 5 3 Active Additional Information Patient [...] Active QUEtiapine Fumarate 25 MG Oral Tablet (SEROquel)Indications [...] ERECTILE DYSFUNCTION 30 Tablet 0 3 Active methylPREDNISolone 4 MG Oral Tablet Therapy Pack (Medrol Dosepack) follow package directions 21 Tablet 0 3 Active Additional Information Patient not taking.Reported on 05/19/2023 Modafinil 100 MG Oral Tablet (Provigil)Indications :Idiopathic hypersomnolence Take 1 Tablet by mouth in the morning. 30 Tablet 3 4 Active Modafinil 100 MG Oral Tablet (Provigil) Take 1 Tablet by mouth in the morning. 30 Tablet 3 4 06/06/19 24 Discontinu ed(Refill) documented as of this encounter (statuses as of 06/09/2023) Active Problems Problem Noted Date Diagnosed Date [...] as of this encounter (statuses as of 06/09/2023) Resolved Problems Problem Noted Date Diagnosed Date Resolved Date Inguinal hernia, right 02/09/201402/05 Dyslipidemia, goal to be determined 04/13/2009 06/16/2014 Overview: Per Lipid Taxonomy. BILAT INGUINAL HERNIA 11/24/20032018 PURE HYPERCHOLESTEROLEM 11/10/200304/04 Overview: Per Lipid Taxonomy. documented as of this encounter (statuses as of 06/09/2023) Immunizations Name Administration Dates Next Due COVID-19 [...] as of this encounter Miscellaneous Notes * Addendum Note - Madie Centeno MD - 06/06/2023 1:08 PM EST Addended by: MADIE CENTENO on: 06/06/2023 01:08 PM Modules accepted: Orders * Telephone Encounter - Madie Centeno MD - 06/06/2023 1:07 PM EST Re-ordered with dx code * Telephone Encounter - Dayami Paz OSA - 06/06/2023 6:54 AM EST Please provide diagnosis code for medication. Thank you, Dayami Paz Medication Furniture Mechanic III [facility] PH: [phone] 06/06/2023,6:54 AM * Telephone Encounter - Kriss Osborne OSA - 06/04/2023 3:41 PM EST Received prior auth for modafinil 100 mg from [employer] . It has been scanned in for review. documented in this encounter Plan of Treatment Upcoming Encounters Date Type Department Care Team (Late st Contact Info) Description 06/26/2023 4:40 PM EST Office Visit Family [facility] [address] [place] [address] Kenn Bliss DO [address] [place] [address] 09/18/2023 9:30 AM EDT Telemedicine Neurology, [place] [address] [facility] [address] [place] [address] Madie Centeno MD [address] [place] [address] [place] [address] Health Maintenance Due Date [...] this encounter Medical Devices Implanted Type Area Manager Icu Device Identifier Shelf Expiration Date Model / Serial / Lot Bard Mesh Perfix Plug Implanted:Qty: 1 on 03/17/2014 at OR [facility] Tissue - Non Human 05/17/2018 [id number] / / [id number] documented as of this encounter Visit Diagnoses Diagnosis Idiopathic hypersomnolence- Primary Hypersomnia, unspecified documented in this encounter Care Teams Systems Engineer Relationship Specialty Start Date End Date Kenn Bliss DO 132 [facility] [place] [address] PCP - General Family Medicine 01/20/18 documented as of this encounter
--- OUTSIDE RECORDS SUMMARY | 2023-10-11 08:28 | External Medical Summary | Summary of Care ---
Author Name Unknown Organization [facility] Address [address] [place] [address] Phone [phone] Care Team Providers Care Recycling Center Operator Name Role Phone Kenn Bliss DO Primary Care Provider Reason for Visit * Reason Onset Date Comments Medication Management 04/08/2023 Encounter Details Date Type Department Care Team (Late st Contact Info) Description 04/08/2023 Telephone Neurology, [place] [address] [facility] [place] [address] [place] [address] Madie Sanchez MD [address] [place] [address] [place] [address] Medication Management (/) Allergies No known active allergiesdocumented as of this encounter (statuses as of 04/17/2023) Medications Medication Sig Dispensed Refills Start Date [...] as of this encounter (statuses as of 04/17/2023) Active Problems Problem Noted Date Diagnosed Date [...] as of this encounter (statuses as of 04/17/2023) Resolved Problems Problem Noted Date Diagnosed Date Resolved Date Inguinal hernia, right 02/09/201402/05 Dyslipidemia, goal to be determined 04/13/2009 06/16/2014 Overview: Per Lipid Taxonomy. BILAT INGUINAL HERNIA 11/24/20032018 PURE HYPERCHOLESTEROLEM 11/10/200304/04 Overview: Per Lipid Taxonomy. documented as of this encounter (statuses as of 04/17/2023) Immunizations Name Administration Dates Next Due COVID-19 [...] 05/19/2023 8:40 AM EST Office Visit Neurology [facility] [address] [facility] [place] [address] Indira Ramirez MD [address] [facility] [place] [address] 06/02/2023 8:00 AM EST Telemedicine Neuropsychology, [place] [address] [place], [place] [id number] [facility] [address] [place] [address] 06/20/2023 1:00 PM EST Telemedicine Gastroenterology, [facility] [address] [place] [address] Elie Chase MD [address] [place] [address] 06/26/2023 4:40 PM EST Office Visit Family Practice [facility] [address] [place] [address] Kenn Bliss DO 132 [facility] [place] [address] 09/18/2023 9:30 AM EDT Telemedicine Neurology, [place] [address] [facility] [address] [place] [address] Madie Sanchez MD [address] [place] [address] [place] [address] Health Maintenance Due Date Last Done Comments COLONOSCOPY-EVERY 3 YRS AGES 18-100 09/24/2019 09/23/2016, 09/23/2016 COVID-19 Vaccine (4 - 2023-24 season) 2023 08/11/2021, 02/04/2021, 07/03/2020 Depression Screening [...] this encounter Medical Devices Implanted Type Area Church History Teacher Device Identifier Shelf Expiration Date Model / Serial / Lot Bard Mesh Perfix Plug Implanted:Qty: 1 on 03/17/2014 at OR [facility] Tissue - Non Human 05/17/2018 [id number] / / [id number] documented as of this encounter Care Teams Recycling Center Operator Relationship Specialty Start Date End Date Kenn Bliss DO 132 [facility] [place] [address] PCP - General Family Medicine 01/20/18 documented as of this encounter
--- OUTSIDE RECORDS SUMMARY | 2023-10-11 08:28 | External Medical Summary | Summary of Care ---
Author Name Unknown Organization [facility] Address [address] [place] [address] Phone [phone] Care Team Providers Care Sharepoint Developer Name Role Phone Kenn Blisscallie Primary Care Provider Reason for Visit * Reason Onset Date Comments Precert In Process 06/04/2023 02 Dayami vorafinil Encounter Details Date Type Department Care Team ([facility] st Contact Info) Description 06/04/2023 Telephone Neurology, [place] Frank Sharma [address] [place] [phone] Madie Centeno MD [address] [place] [place] [address] Precert In Process (02 Dayami WU modf... Allergies No known active allergiesdocumented as of [...] for medication. Thank you, Dayami Paz Medication Recoating Machine Operator III [facility] PH: [phone] 06/06/2023,6:54 AM * Telephone Encounter - Kriss Osborne OSA - 06/04/2023 3:41 PM EST Received prior auth for modafinil 100 mg from [employer] . It has been scanned in for review. documented in this encounter Plan of Treatment Upcoming Encounters Date Type Department Care Team (Late st Contact Info) Description 06/26/2023 4:40 PM EST Office Visit Family Practice [facility] [address] [place] [address] Kenn Bliss DO [address] [place] [address] 09/18/2023 9:30 AM EDT Telemedicine Neurology, [place] [address] [facility] [address] [place] [address] Madie Centeno MD [address] [place] [address] [place] [address] Health Maintenance Due Date [...] this encounter Medical Devices Implanted Type Area Gel Coater Device Identifier Shelf Expiration Date Model / Serial / Lot Bard Mesh Perfix Plug Implanted:Qty: 1 on 03/17/2014 at OR [facility] Tissue - Non Human 05/17/2018 [id number] / / [id number] documented as of this encounter Visit Diagnoses Diagnosis Idiopathic hypersomnolence- Primary Hypersomnia, unspecified documented in this encounter Care Teams Sharepoint Developer Relationship Specialty Start Date End Date Kenn Bliss DO [address] [place] [address] PCP - General Family Medicine 01/20/18 documented as of this encounter
--- OUTSIDE RECORDS SUMMARY | 2023-10-11 08:28 | External Medical Summary | Summary of Care ---
Author Name Unknown Organization [facility] Address [address] [place] [address] Phone [phone] Care Team Providers Care Claims Administrator Name Role Phone Kenn Bliss DO Primary Care Provider Reason for Visit * Reason Onset Date Comments FYI 06/20/2023 Encounter Details Date Type Department Care Team ([facility] st Contact Info) Description 06/20/2023 Telephone Neurology, [place] Frank Sharma [address] [place] [address] Madie Sanchez MD [address] [place] [phone] FYI Allergies No known active allergiesdocumented as of this encounter (statuses as of 06/20/2023) Medications Medication Sig Dispensed Refills Start Date [...] as of this encounter (statuses as of 06/20/2023) Active Problems Problem Noted Date Diagnosed Date [...] as of this encounter (statuses as of 06/20/2023) Resolved Problems Problem Noted Date Diagnosed Date Resolved Date Inguinal hernia, right 02/09/201402/05 Dyslipidemia, goal to be determined 04/13/2009 06/16/2014 Overview: Per Lipid Taxonomy. BILAT INGUINAL HERNIA 11/24/20032018 PURE HYPERCHOLESTEROLEM 11/10/200304/04 Overview: Per Lipid Taxonomy. documented as of this encounter (statuses as of 06/20/2023) Immunizations Name Administration Dates Next Due COVID-19 [...] encounter Miscellaneous Notes * Telephone Encounter - Kriss Osborne OSA - 06/20/2023 2:38 PM EST Received denial for Modafinil from [employer]. It was scanned in for review. documented in this encounter Plan of Treatment Upcoming Encounters Date Type Department Care Team (Late st Contact Info) Description 06/26/2023 4:40 PM EST Office Visit Family [facility] [address] [place] [address] Kenn Bliss DO [address] [place] [address] Health Maintenance Due Date Last Done Comments [...] this encounter Medical Devices Implanted Type Area Paste Up Artist Apprentice Device Identifier Shelf Expiration Date Model / Serial / Lot Bard Mesh Perfix Plug Implanted:Qty: 1 on 03/17/2014 at OR [facility] Tissue - Non Human 05/17/2018 [id number] / / [id number] documented as of this encounter Care Teams Claims Administrator Relationship Specialty Start Date End Date Kenn Bliss DO [facility] [address] [place] [address] PCP - General Family Medicine 01/20/18 documented as of this encounter
--- OUTSIDE RECORDS SUMMARY | 2023-10-11 08:28 | External Medical Summary | Summary of Care ---
Author Name Unknown Organization [facility] Address [address] [place] [address] Phone [phone] Care Team Providers Care Linesperson Name Role Phone Kenn Bliss DO Primary Care Provider Reason for Visit * Reason Onset Date Comments Appointment 04/16/2023 Encounter Details Date Type Department Care Team ([facility] st Contact Info) Description 04/16/2023 Telephone Neurology, [place] Frank Sharma [address] [place] [address] Madie Sanchez MD [address] [place] [address] Appointment Allergies No known active allergiesdocumented as of this encounter (statuses as of 04/16/2023) Medications Medication Sig Dispensed Refills Start Date [...] as of this encounter (statuses as of 04/16/2023) Active Problems Problem Noted Date Diagnosed Date [...] as of this encounter (statuses as of 04/16/2023) Resolved Problems Problem Noted Date Diagnosed Date Resolved Date Inguinal hernia, right 02/09/201402/05 Dyslipidemia, goal to be determined 04/13/2009 06/16/2014 Overview: Per Lipid Taxonomy. BILAT INGUINAL HERNIA 11/24/20032018 PURE HYPERCHOLESTEROLEM 11/10/200304/04 Overview: Per Lipid Taxonomy. documented as of this encounter (statuses as of 04/16/2023) Immunizations Name Administration Dates Next Due COVID-19 [...] Telephone Encounter - Kriss Osborne OSA - 04/16/2023 10:02 AM EST Hayley called to set up appt with Chely Carrasquillo that was recommended documented in this encounter Plan of Treatment Upcoming Encounters Date Type Department Care Team (Late st Contact Info) Description 04/17/2023 8:00 AM EST Telemedicine Neuropsychology, [place] [address] [place] [address] Chely Carrasquillo, [facility] [address] [place] [address] 05/19/2023 8:40 AM EST Office Visit Neurology [facility] [address] [place] [address] Indira Ramirez MD [address] [place] [address] 06/20/2023 1:00 PM EST Telemedicine Gastroenterology, [facility] [address] [place] [address] Elie Chase MD [address] [place] [address] 06/26/2023 4:40 PM EST Office Visit Family Practice [facility] [address] [place] [address] Kenn Bliss DO [address] [place] [address] 09/18/2023 9:30 AM EDT Telemedicine Neurology, [place] [address] [facility] [address] [place] [address] Madie Sanchez MD [address] [place] [address] [place] [address] Health Maintenance Due Date Last Done Comments [...] encounter Medical Devices Implanted Type Area Manager Strategic Alliances Device Identifier Shelf Expiration Date Model / Serial / Lot Bard Mesh Perfix Plug Implanted:Qty: 1 on 03/17/2014 at OR [facility] Tissue - Non Human 05/17/2018 [id number] / / [id number] documented as of this encounter Care Teams Linesperson Relationship Specialty Start Date End Date Kenn Bliss DO [address] [place] [address] PCP - General Family Medicine 01/20/18 documented as of this encounter
--- OUTSIDE RECORDS SUMMARY | 2023-10-11 08:28 | External Medical Summary | Summary of Care ---
Author Name Unknown Organization [facility] Address [address] [place] [address] Phone [phone] Care Team Providers Care Showroom Salesperson Name Role Phone Kenn Bliss DO Primary Care Provider Reason for Visit * Reason Onset Date Comments Medication Question 06/04/2023 02 Dayami engel Encounter Details Date Type Department Care Team (Late st Contact Info) Description 06/04/2023 Telephone Neurology, [place] Frank Sharma [address] [place] [address] Madie Centeno MD [address] [place] [address] Medication Question (02 Dayami [...] for medication. Thank you, Dayami Paz Medication Global Compensation Manager III [facility] PH: [phone] 06/06/2023,6:54 AM * Telephone Encounter - Kriss Osborne OSA - 06/04/2023 3:41 PM EST Received prior auth for modafinil 100 mg from [employer] . It has been scanned in for review. documented in this encounter Plan of Treatment Upcoming Encounters Date Type Department Care Team (Late st Contact Info) Description 06/26/2023 4:40 PM EST Office Visit [facility] [address] [place] [address] Kenn Bliss DO [address] [place] [address] 09/18/2023 9:30 AM EDT Telemedicine Neurology, [place] [address] [facility] [address] [place] [address] Madie Centeno MD [address] [place] [address] [place] [address] Health Maintenance Due Date [...] this encounter Medical Devices Implanted Type Area Junior Business Analyst Device Identifier Shelf Expiration Date Model / Serial / Lot Bard Mesh Perfix Plug Implanted:Qty: 1 on 03/17/2014 at OR [facility] Tissue - Non Human 05/17/2018 [id number] / / [id number] documented as of this encounter Visit Diagnoses Diagnosis Idiopathic hypersomnolence- Primary Hypersomnia, unspecified documented in this encounter Care Teams Showroom Salesperson Relationship Specialty Start Date End Date Kenn Bliss DO [address] [place] [address] PCP - General Family Medicine 01/20/18 documented as of this encounter
--- OUTSIDE RECORDS SUMMARY | 2023-10-11 08:28 | External Medical Summary | Summary of Care ---
Author Name Unknown Organization [facility] Address [address] [place] [address] Phone [phone] Care Team Providers Care Drilling Inspector Name Role Phone Reggie Blissr Melissa Primary Care Provider Reason for Referral * Evaluate & Treat - Unlimited Visits (Within 10 days (routine)) - Pending Review Specialty Diagnoses / Procedures Referred By Neel li Referred To Contact Psychiatry / Psychology Diagnoses Major neurocognitive disorder (HCC) Madie Centeno MD [address] [place] [address] Dr FRANK HERZOG, [place] [address] Referral ID Status Reason Start Date Expiration Date Visits Requested Visits Authorized [id number] Pending Review Specialty Services Required 06/04/2023 999 999 Question Answer Referral Priority Within 10 days (routine) Where should this appointment be scheduled? [facility] Is this referral for medication management? No What condition is this patient being seen for? Dementia/Neurodegenerative Does the patient have SEVERE cognitive impairment on bedside screeners? (MoCA/MMSE <= 10) No Comments Neuropsychological evaluations are INTERACTIVE and use materials that require a patient to SEE, HEAR, and often WRITE. If a patient is unable to engage in this way, neurocognitive assessment may be abbreviated or deemed inappropriate. Please use caution in establishing expectations with your patient, and note any limitations in the comments section of the referral order. Reason for Visit * Reason Onset Date Comments Other 06/04/2023 Encounter Details Date Type Department Care Team ([facility] st Contact Info) Description 06/04/2023 Telephone Neurology, Frank [address] [place] [address] [place] [address] Madie Centeno MD [address] [place] [address] Other Allergies No known active allergiesdocumented as [...] mRNA, LNP-s, No Pre serve, 2-Dose Series (Kulara Water) 02/04/2021 COVID-19, LNP-s, No Preserve , Raghavendra-sucrose, [...] Addendum Note - Madie Centeno MD - 06/04/2023 2:29 PM EST Addended by: MADIE CENTENO on: 06/04/2023 02:29 PM Modules accepted: Orders * Telephone Encounter - Madie Centeno MD - 06/04/2023 2:21 PM EST Talked to She is "all for" neurospych testing. 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 But never had EGG SORTER testing--can he be seen with you before my appt in September? He is going to the room a lot Not initiating much on his own More when ppl are around But not seeming depressed May get up for a couple of hours, get an in home visit, then goes back to his room again. Then comes out in the late afternoon then he stays up. Worn out toward evening. Low energy. She does not know how much he sleeps at night. Not using CPAP. Not using melatonin. PLAN: MODAFINIL Not taking aricept or effexor * Telephone Encounter - Sally Dickson, MARINE - 06/04/2023 11:25 AM EST Neuroscience Phone Call Form- Clinic has 24-48 hours to respond to caller If caller is calling back before that timeframe- There is no need to send another message to the pool, update current TE [facility] Neurology Pool- All messages go through the [facility] Neuro Sand Cutter- [id number] Neurology Pool Numbers- [place] and [place] patients - follow normal process Ops req [facility] Neurology ([place])- [id number] Ops req [place] Neurology ([place]- [facility] Only)- [id number] Neurosurgery Pool Numbers- [place] patients- follow normal process Ops req Neurosurgery [facility] ([place])- [id number] Ops req Neurosurgery [facility] ([place] Only) [id number] Requested Information from caller: Who is calling (not pt) name: Hayley relationship: Provider patient is established with: Daniel What is the concern or issue they are having: calling back to speak to provider- phone number left is inactive How long has the issue been going on: n/a Any additional details to add: no Pts phone number for nurse to call back: [phone] Please make sure you verify pharmacy for anything medication related. Form to be used for established patients only (not new patients) * Telephone Encounter - Madie Centeno MD - 06/04/2023 11:06 AM EST Called Hayley and left VMM to see if she and Mr Irina would be interested in neuropsych testing, following recent appt with Dr Ramirez. Also left VMM on home phone. documented in this encounter Plan of Treatment Upcoming Encounters Date Type Department Care Team (Late st Contact Info) Description 06/26/2023 4:40 PM EST Office Visit Family [facility] 132 [facility] [place] [address] Kenn Bliss DO 132 [facility] [place] [address] 09/18/2023 9:30 AM EDT Telemedicine Neurology, [place] [facility] [address] [place] [address] Madie Centeno MD [address] [place] [address] [place] [address] Scheduled Referrals Name Type Priority Associated Diagnoses Orde r Schedule ADULT/PEDS NEUROPSYCHOLOGY REFERRAL OP Referral Within 10 days (routine) Major neurocognitive disorder (HCC) Ordered: 06/04/2023 Health Maintenance Due Date Last Done Comments [...] this encounter Medical Devices Implanted Type Area Fly Raiser Lockstitch Device Identifier Shelf Expiration Date Model / Serial / Lot Bard Mesh Perfix Plug Implanted:Qty: 1 on 03/17/2014 at OR [facility] Tissue - Non Human 05/17/2018 [id number] / / [id number] documented as of this encounter Visit Diagnoses Diagnosis Major neurocognitive disorder (HCC)- Primary documented in this encounter Care Teams Drilling Inspector Relationship Specialty Start Date End Date Kenn Bliss DO [address] [place] [address] PCP - General Family Medicine 01/20/18 documented as of this encounter
--- OUTSIDE RECORDS SUMMARY | 2023-10-11 08:28 | External Medical Summary | Summary of Care ---
Author Name Unknown Organization [facility] Address [address] [place] [address] Phone [phone] Care Team Providers Care Revenue Cycle Manager Name Role Phone Reggie Blissr Melissa Primary Care Provider Reason for Referral * Precert (Within 10 days (routine)) - Pending Review Specialty Diagnoses / Procedures Referred By Conttimi t Referred To Contact Radiology Diagnoses Cerebral ventriculomegaly Procedures CT HEAD/BRAIN WO CONTRAST Indira Ramirez MD [address] [place] [id number] Referral ID Status Reason Start Date Expiration Date V isits Requested Visits Authorized [id number] Pending Review 05/19/2023 999 999 Reason for Visit * Reason Comments Follow Up Encounter Details Date Type Department Care Team ([facility] st Contact Info) Description 05/19/2023 8:40 AM EST Office Visit Neurology [facility] [address] [facility] [place] [address] Indira Ramirez MD 200 [place] [address] Cerebral ventriculomegaly* Allergies No known active allergiesdocumented as of this encounter (statuses as of 05/19/2023) Medications Medication Sig Dispensed Refills Start Date [...] as of this encounter (statuses as of 05/19/2023) Active Problems Problem Noted Date Diagnosed Date [...] as of this encounter (statuses as of 05/19/2023) Resolved Problems Problem Noted Date Diagnosed Date Resolved Date Inguinal hernia, right 02/09/201402/05 Dyslipidemia, goal to be determined 04/13/2009 06/16/2014 Overview: Per Lipid Taxonomy. BILAT INGUINAL HERNIA 11/24/20032018 PURE HYPERCHOLESTEROLEM 11/10/200304/04 Overview: Per Lipid Taxonomy. documented as of this encounter (statuses as of 05/19/2023) Immunizations Name Administration Dates Next Due COVID-19 [...] Sign Reading Time Taken Comments Blood Pressure 122/72 05/19/2023 8:43 AM EST Pulse 55 05/19/2023 8:43 AM EST Temperature 35.9 C (96.6 F) 05/19/2023 8:43 AM ES T Respiratory Rate 18 05/19/2023 8:43 AM EST Oxygen Saturation 97% 05/19/2023 8:43 AM EST Inhaled Oxygen Concentration - - Weight 79.7 kg (175 lb 12.8 oz) 05/19/2023 8:43 AM EST Height - - Body Mass Index 23.84 12/23/2022 3:48 PM EDT documented in this encounter Progress Notes * Indira Ramirez MD - 05/19/2023 9:29 AM EST CLINIC NOTES Neurology [address] [place] [address] [place] [address] [facility] : 1950 NEUROLOGY OUTPATIENT NOTE 05/19/2023 HISTORY: The patient is referred for consultation by Dr. Bliss, who will be receiving a copy of this note. 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 They are following with [facility], Dr. Estrada Sanchez. There was some ongoing weight loss and GI side effects with Aricept and was discontinued Effexor was tried but was not helpful and potentially also cause GI side effects. New line the patient does a lot of sleeping in fact sleeps much of the day he is sleeping other than when he eats although he is engaged to be as visitors. Getting little exercise both cognitively and physically. Has had cognitive therapy as well as physical therapy. New line affect is described as being flat. Significant other describes this executive function Past Medical History: Diagnosis Date BILAT INGUINAL [...] of ascending aorta without rupture (HCC) I71.21 Past Surgical History: Procedure Laterality Date COLONOSCOPY, DIAGNOSTIC (RECTUM) 09/23/2016 adenomatous polyp, diverticulosis, fair prep, repeat 3 yrs/COLONOSCOPY FLEXIBLE PROXIMAL DIAGNOSTICperformed by Roshan Portillo MD at ENDOSCOPY [facility] REPAIR INITIAL INGUINAL HERNIA REDUCIBLE AGE 5 OR MORE 04/21/2013 04/21/2013 at [facility], Repair open left direct inguinal hernia with Aditya ligament repair with Arun Landaverde with front end assistant Juarez Lopez PA-C REPAIR INITIAL INGUINAL HERNIA REDUCIBLE AGE 5 OR MORE 03/17/2014 REPAIR INITIAL INGUINAL HERNIA REDUCIBLE AGE 5 OR MORE performed by Denzel Villeda MD at OR [facility] VASECTOMY 8 yrs ago Social History Socioeconomic History Marital status: Spouse name: Not on file Number of children: 3 Years of education: 20 Highest education level: Not on file Occupational History 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; retired Tobacco Use Smoking status: Never Smokeless tobacco: Never Vaping Use Vaping Use: Never used Substance and Sexual Activity Alcohol use: Yes Comment: 1.5 beers a day Drug use: Yes Types: Marijuana Comment: once a year Sexual activity: Yes Partners: Female Other Topics Concern Not on file Social History Narrative Not on file Social Determinants of Health Financial Resource Strain: Not on file Food Insecurity: No Food Insecurity (03/11/2023) Hunger Vital Sign Worried About Running Out of Food in the Last Year: Never true Ran Out of Food in the Last Year: Never true Transportation Needs: Not on file Physical Activity: Not on file Stress: Not on file Social Connections: Not on file Intimate Partner Violence: Not on file Housing Stability: Not on file Family History Problem Relation Age of Onset Hypertension Father Stroke Father age 72 Mental retardation Sister Heart Disorder Brother pacemaker Arthritis Grandfather (Maternal) Heart Disorder Grandfather (Paternal) in 60's Current Outpatient Medications Medication Sig Dispense Refill [...] mouth in the morning. 90 Capsule 3 Sildenafil Citrate 50 MG Oral Tablet take 1 tablet by mouth once daily if needed for ERECTILE DYSFUNCTION 30 Tablet 0 Donepezil HCl 10 MG Oral Tablet [...] taking: Reported on 05/19/2023) 20 Tablet 5 methylPREDNISolone 4 MG Oral Tablet Therapy Pack (Medrol Dosepack) follow package directions (Patient not taking: Reported on 05/19/2023) 21 Tablet 0 No current facility-administered medications for this visit. Review of patient's allergies indicates: No Known Allergies Results for orders placed or performed in visit on 12/02/22 CBC Result Value Ref Range WBC 6.36 4.00 - 10.80 K/uL RBC 4.68 4.50 - 5.25 M/uL HGB 15.5 14.0 - 16.8 g/dL HCT 45.4 40.0 - 48.4 % MCV 97.0 82.0 - 99.5 fL MCH 33.1 27.0 - 34.0 pg MCHC 34.1 32.0 - 36.0 g/dL RDW 12.7 11.5 - 15.5 % PLT 216 140 - 400 K/uL MPV 10.2 6.6 - 11.1 fL Results for orders placed or performed in visit on 12/02/22 BASIC METABOLIC PANEL Result Value Ref Range BUN 26 (H) 6 - 20 mg/dL Creatinine 1.4 (H) 0.6 - 1.2 mg/dL Estimated Glomerular Filtration Rate 55 (L) >=60 mL/min Sodium 142 135 - 146 mmol/L Potassium 5.1 3.5 - 5.1 mmol/L Chloride 103 98 - 107 mmol/L CO2 29 22 - 32 mmol/L Anion Gap 10 7 - 15 mmol/L Glucose 91 70 - 120 mg/dL Calcium 9.7 8.4 - 10.2 mg/dL Results for orders placed or performed in visit on 01/20/18 LIPID PANEL Result Value Ref Range HOURS FASTING 12 hours Triglycerides 94 <200 mg/dL Cholesterol 197 <200 mg/dL HDL Cholesterol 55 >39 mg/dL Cholesterol-HDL Ratio 3.6 LDL Cholesterol 123 0 - 129 mg/dL Results for orders placed or performed in visit on 10/08/22 LIPID PANEL WITH DIRECT LDL IF TG IS HIGH Result Value Ref Range Triglycerides 107 <=174 mg/dL Cholesterol 202 (H) <200 mg/dL HDL Cholesterol 56 >39 mg/dL Non-HDL Cholesterol 146 <=159 mg/dL LDL Cholesterol 125 <=129 mg/dL Lab Results Component Value Date/Time HEMOGLOBIN A1C - [facility] 6.0 (H) 11/14/2022 01:58 PM HEMOGLOBIN A1C - [facility] 5.8 06/11/2014 09:11 AM Lab Results Component Value Date/Time TSH - [facility] 2.26 03/11/2023 10:09 AM TSH - [facility] 2.23 11/14/2022 01:58 PM TSH - [facility] 3.81 09/02/2020 09:20 AM TSH - [facility] 2.46 02/09/2019 12:56 PM TSH - [facility] 1.91 07/19/2015 03:31 PM TSH - [facility] 3.29 09/24/2011 03:11 PM No results found for: "RUSS" Results for orders placed or performed in visit on 03/11/23 VITAMIN B12 Result Value Ref Range Vitamin B12 372 232 - 1,245 pg/mL Results for orders placed or performed in visit on 03/11/23 FOLIC ACID Result Value Ref Range Folic Acid 10.7 >4.5 ng/mL No results found for: "[id number]" No results found for: "[id number]" No results found for: "[id number]" 25OH VITAMIN D TOTAL (ng/mL) Date Value 02/09/2019 27 01/20/2018 33 02/07/2016 33 Vitamin D Level Interpretation deficient: <20 ng/ml insufficient: 20-30 ng/ml normal: 31-100 ng/ml REVIEW OF SYSTEMS: As above patient denies significant snoring apnea depressive symptoms PHYSICAL EXAM: BP 122/72 (BP Site: Right Arm, BP Position: Sitting, BP Cuff Size: Regular) | Pulse 55 | Temp 35.9 C (96.6 F) (Tympanic) | Resp 18 | Wt 79.7 kg (175 lb 12.8 oz) | SpO2 97% | BMI 23.84 kg/m | BSA 2.01 m Patient is awake and alert there is a paucity of spontaneous speech. What was the mini mental exam score? 21 What is today's date? 0 What is today's year? 0 2022 What is the month? 0 June What day is today? 0 What season is it? 1 What is the name of this hospital/clinic? 1 What floor are we on? 1 What town/city are we in? 1 What county are we in? 0 What state are we in? 1 Did the patient repeat ball? 1 Did the patient repeat flag? 1 Did the patient repeat tree? 1 Did the patient respond D? 1 Did the patient respond L? 1 Did the patient respond R? 1 Did the patient respond O? 1 Did the patient respond W? 1 Did the patient respond ball? 0 Did the patient respond flag? 0 Did the patient respond tree? 0 Show the patient a watch and ask what it is. 1 Show the patient a pencil and ask what it is. 1 Ask the patient to repeat No ifs, ands or buts. 1 Patient takes paper in hand 1 Patient folds paper in half [address] paper on the floor 1 Hold card "Close eyes". Ask pt. to read and do what it says 1 Give pt. paper and ask to write a sentence. 1 Show pt. drawing of intersecting pentagons. Ask pt. to draw 0 Pupils are equal optic nerves were difficult to visualize secondary to miosis normal allison motility facial symmetry strength is full ankle jerks present on the right absent on the left no clonus toes are downgoing ankle level to temperature vibration present at the ankles gait is mildly wide-basedbut not bradykinetic shuffling IMPRESSION: Idiopathic neuropathy essentially stable Longstanding mild cognitive impairment with decline post traumatic subarachnoid hemorrhage. There is some disc executive function apathy sleeping raising the question of some frontal impairment. His partner will reach out to Dr. Sanchez about potentially trying another activating antidepressant Given that this has all escalated since the subarachnoid hemorrhage I am going to repeat a noncontrast CT of the head to rule out progressive hydrocephalus related to the subarachnoid. I suspect this patient has congenital hydrocephalus he does not have the typical dysfunction of normal pressure hydrocephalus. We discussed imaging cervical spine. I do not see any pathologic reflexes to see to suggest that that is the cause of gait dysfunction. We did discuss do imaging of the cervical spine but has electednot to do so unless there is obvious signs of myelopathy. Patient will follow-up with Dr. Daniel Ramirez MD 05/19/2023 9:29 AM documented in this encounter Nursing Notes * Maida Lopez LPN - 05/19/2023 8:42 AM EST Patient verified identity by spelling of last name and date. Chief Complaint Patient presents with Follow Up documented in this encounter Plan of Treatment Upcoming Encounters Date Type Department Care Team (Late st Contact Info) Description 06/02/2023 8:00 AM EST Telemedicine Neuropsychology, [place] [address] [place] [address] Chely Carrasquillo, [facility] [address] [place] [address] 06/02/2023 4:30 PM EST Imaging Radiology [facility] 1st Floor, [place] [address] [facility] [place] [address] 06/20/2023 1:00 PM EST Telemedicine Gastroenterology, [facility] [address] [facility] [place] [address] Elie Chase MD 06/26/2023 4:40 PM EST Office Visit Family Practice [facility] [address] [facility] [place] [address] Kenn Bliss, 132 [facility] [place] [address] 09/18/2023 9:30 AM EDT Telemedicine Neurology, [place] [address] [facility] [address] [place] [address] Madie Sanchez MD [address] [place] [address] [place] [address] Scheduled Orders Name Type Priority Associated Diagnoses Orde r Schedule CT HEAD/BRAIN WO CONTRAST Medical Imaging Routine Cerebral ventriculomegaly Ordered: 05/19/2023 Health Maintenance Due Date Last Done Comments [...] this encounter Medical Devices Implanted Type Area [employer] Library Media Specialist Device Identifier Shelf Expiration Date Model / Serial / Lot Bard Mesh Perfix Plug Implanted:Qty: 1 on 03/17/2014 at OR [facility] Tissue - Non Human 05/17/2018 [id number] / / [id number] documented as of this encounter Visit Diagnoses Diagnosis Cerebral ventriculomegaly- Primary Other conditions of brain documented in this encounter Care Teams Revenue Cycle Manager Relationship Specialty Start Date End Date Kenn Bliss DO [address] [place] [address] PCP - General Family Medicine 01/20/18 documented as of this encounter
--- OUTSIDE RECORDS SUMMARY | 2023-10-11 08:28 | External Medical Summary | Summary of Care ---
Author Name Unknown Organization [facility] Address [address] [place] [address] Phone [phone] Care Team Providers Care Chemist Instrumentation Name Role Phone Kenn Bliss DO Primary Care Provider Reason for Visit * Reason Onset Date Comments Other 06/04/2023 Encounter Details Date Type Department Care Team ([facility] st Contact Info) Description 06/04/2023 Telephone Neurology, [place] [address] [place] [address] Madie Sanchez MD [address] [place] [place] [phone] Other Allergies No known active allergiesdocumented as [...] recent appt with Dr Ramirez. Also left M on home phone. documented in this encounter Plan of Treatment Upcoming Encounters Date Type Department Care Team (Late st Contact Info) Description 06/26/2023 4:40 PM EST Office Visit Family [facility] 132 [facility] [place] [address] Kenn Bliss DO 132 [facility] [place] [address] 09/18/2023 9:30 AM EDT Telemedicine Neurology, [place] [address] [facility] [address] [place] [address] Madie Sanchez MD [address] [place] [address] [place] [address] Health Maintenance Due Date Last Done Comments [...] this encounter Medical Devices Implanted Type Area Sports Instructor Device Identifier Shelf Expiration Date Model / Serial / Lot Bard Mesh Perfix Plug Implanted:Qty: 1 on 03/17/2014 at OR [facility] Tissue - Non Human 05/17/2018 [id number] / / [id number] documented as of this encounter Care Teams Chemist Instrumentation Relationship Specialty Start Date End Date Kenn Bliss DO [address] [place] [address] PCP - General Family Medicine 01/20/18 documented as of this encounter
--- OUTSIDE RECORDS SUMMARY | 2023-10-11 08:28 | External Medical Summary | Summary of Care ---
Author Name Unknown Organization [facility] Address [address] [place] [address] Phone [phone] Care Team Providers Care Digital Editor Name Role Phone Kenn Bliss DO Primary Care Provider Reason for Visit * Reason Onset Date Comments Pre Cert/Prior Auth 06/04/2023 Encounter Details Date Type Department Care Team (Late st Contact Info) Description 06/04/2023 Telephone Neurology, [place] [address] [place] [address] Madie Sanchez MD [address] [place] [address] Pre Cert/Prior Auth Allergies No known active allergiesdocumented as of [...] prior auth for modafinil 100 mg from [email or web address] . It has been scanned in for review. documented in this encounter Plan of Treatment Upcoming Encounters Date Type Department Care Team (Late st Contact Info) Description 06/26/2023 4:40 PM EST Office Visit Family Practice [facility] 132 [facility] [place] [address] Kenn Bliss, 132 [facility] [place] [address] 09/18/2023 9:30 AM EDT Telemedicine Neurology, [place] [address] [facility] [address] [place] [address] Madie Sanchez MD [address] [place] [address] [place] [address] Health Maintenance Due Date Last Done Comments COLONOSCOPY-EVERY 3 YRS AGES 18-100 09/24/2019 09/23/2016, 09/23/2016 COVID-19 Vaccine ( season) 2023 08/11/2021, 02/04/2021, 07/03/2020 Depression Screening 11/05/2023 11/04/2022 Lipid Panel 10/09/2027 10/08/2022, 1210/2021, 01/20/2018, Additional history exists DTaP,Tdap,and Td Vaccines [...] this encounter Medical Devices Implanted Type Area Lock Stitch Channeler Device Identifier Shelf Expiration Date Model / Serial / Lot Bard Mesh Perfix Plug Implanted:Qty: 1 on 03/17/2014 at OR [facility] Tissue - Non Human 05/17/2018 [id number] / / [id number] documented as of this encounter Care Teams Digital Editor Relationship Specialty Start Date End Date Kenn Bliss DO [facility] [place] [address] PCP - General Family Medicine 01/20/18 documented as of this encounter
--- OUTSIDE RECORDS SUMMARY | 2023-10-11 08:28 | External Medical Summary | Summary of Care ---
Author Name Unknown Organization [facility] Address [address] [place] [address] Phone [phone] Care Team Providers Care Supervisor Final Name Role Phone Kenn Bliss DO Primary Care Provider Reason for Visit * Reason Onset Date Comments Pre Cert/Prior Auth 06/04/2023 Encounter Details Date Type Department Care Team (Late st Contact Info) Description 06/04/2023 Telephone Neurology[facility] Frank Sharma [address] [place] [id number] Madie Sanchez MD [address] [place] [address] Pre Cert/Prior Auth Allergies [...] for medication. Thank you, Dayami Paz Medication Aluminum Welder III [facility] PH: [phone] 06/06/2023,6:54 AM * Telephone Encounter - Kriss Osborne OSA - 06/04/2023 3:41 PM EST Received prior auth for modafinil 100 mg from [facility] . It has been scanned in for review. documented in this encounter Plan of Treatment Upcoming Encounters Date Type Department Care Team (Late st Contact Info) Description 06/26/2023 4:40 PM EST Office Visit Family Practice [facility] [address] [facility] [place] [address] Kenn Bliss, [address] [place] [address] 09/18/2023 9:30 AM EDT Telemedicine Neurology, [place] [address] [place] [address] [place] [address] Madie Sanchez MD [address] [place] [address] [place] [phone] Health Maintenance Due Date [...] this encounter Medical Devices Implanted Type Area Network Communications Engineer Device Identifier Shelf Expiration Date Model / Serial / Lot Bard Mesh Perfix Plug Implanted:Qty: 1 on 03/17/2014 at OR [facility] Tissue - Non Human 05/17/2018 [id number] / / [id number] documented as of this encounter Care Teams Supervisor Final Relationship Specialty Start Date End Date Kenn Bliss DO [address] [place] [id number] PCP - General Family Medicine 01/20/18 documented as of this encounter
--- OUTSIDE RECORDS SUMMARY | 2023-10-11 08:28 | External Medical Summary | Summary of Care ---
Author Name Unknown Organization [facility] Address [address] [place] [address] Phone [phone] Care Team Providers Care Finger Buff Sewer Name Role Phone Reggie Blissr Melissa Primary Care Provider Reason for Referral * Evaluate & Treat - Unlimited Visits (Within 10 days (routine)) - Pending Review Specialty Diagnoses / Procedures Referred By Neel li Referred To Contact Psychiatry / Psychology Diagnoses Major neurocognitive disorder (HCC) Gilmer Centeno MD [address] [place] [address] Dr FRANK HERZOG, [place] [id number] Referral ID Status Reason Start Date Expiration Date Visits Requested Visits Authorized [id number] Pending Review Specialty Services Required 06/04/2023 999 [...] Encounter Details Date Type Department Care Team ([facility] st Contact Info) Description 06/04/2023 Telephone Neurology, Frank [address] Dr [address] [place] [address] [place] [phone] Gilmer Centeno MD [address] [place] [address] Other Allergies No known active allergiesdocumented as [...] mRNA, LNP-s, No Pre serve, 2-Dose Series ([employer]) 02/04/2021 COVID-19, LNP-s, No Preserve , Raghavendra-sucrose, [...] encounter Miscellaneous Notes * Addendum Note - Gilmer Centeno MD - 06/04/2023 2:29 PM EST Addended by: GILMER CENTENO on: 06/04/2023 02:29 PM Modules accepted: Orders * Telephone Encounter - Gilmer Centeno MD - 06/04/2023 2:21 PM EST Talked to She is "all for" neurospych testing. 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 But never had COBOL DEVELOPER testing--can he be seen with you before [...] night. Not using CPAP. Not using melatonin. * Telephone Encounter - Sally Dickson, MARINE - 06/04/2023 11:25 AM EST Neuroscience Phone Call Form- Clinic has 24-48 hours to respond to caller If caller is calling back before that timeframe- There is no need to send another message to the pool, update current TE [facility] Neurology Pool- All messages go through the [facility] Neuro Assistant Manager Bilingual- [id number] Neurology Pool Numbers- [place] and [place] patients - follow normal process Ops req [facility] Neurology ([place])- [id number] Ops req [place] [facility] ([place]- [facility] and [facility] Only)- [id number] Neurosurgery Pool Numbers- [place] patients- follow normal process Ops req Neurosurgery [facility] ([place])- [id number] Ops req Neurosurgery [facility] ([place] Only) [id number] Requested Information from caller: Who is calling (not pt) name: Hayley relationship: Provider patient is established with: Daniel What is the concern or issue they are having: calling back to speak to provider- phone number left is inactive How long has the issue been going on: n/a Any additional details to add: no Pts phone number for nurse to call back: [phone] Please make sure you verify pharmacy for anything medication related. Form to be used for established patients only (not new patients) * Telephone Encounter - Gilmer Centeno MD - 06/04/2023 11:06 AM EST [...] Office Visit Family Practice [facility] [address] [place] [address] Kenn Bliss DO [address] [place] [address] 09/18/2023 9:30 AM EDT Telemedicine Neurology, [place] [address] [place] [address] [address] [place] [address] Gilmer Centeno MD [address] [place] [address] [place] [address] Scheduled Referrals Name Type [...] this encounter Medical Devices Implanted Type Area Strike Plate Attacher Device Identifier Shelf Expiration Date Model / Serial / Lot Bard Mesh Perfix Plug Implanted:Qty: 1 on 03/17/2014 at OR [facility] Tissue - Non Human 05/17/2018 [id number] / / [id number] documented as of this encounter Visit Diagnoses Diagnosis Major neurocognitive disorder (HCC)- Primary documented in this encounter Care Teams Finger Buff Sewer Relationship Specialty Start Date End Date Kenn Bliss DO [address] [address] PCP - General Family Medicine 01/20/18 documented as of this encounter
[2023-10-11 08:52] LABS: Estimated Average Glucose 126 mg/dl
--- NOTE | 2023-10-11 10:19 | Neurology Consultation ---
Date of Consultation October 11, 2023 Assessment & Plan (1) Syncope and collapse: Recommend continued work up to include the following: CTA head & neck MRI brain with and without contrast Echocardiogram as part of complete workup Recommend obtain EEG Provide seizure precautions Utilize benzodiazepines emergently for any breakthrough clinical seizure like activity Continue frequent neurological assessments Obtain stat CT brain without contrast for any acute neurological decline Continue to monitor orthostatic vital signs Continue to monitor/control blood pressure & blood glucose Continue to monitor telemetry closely Recommend ZioPatch at DC if no evidence of arrhythmia during inpatient monitoring Continue to monitor renal and hepatic function, keep euvolemic Metabolic workup should include hgbA1c, fasting lipids, homocysteine, TSH, D Dimer, RPR, urinalysis Ok from neurology perspective for VTE prophylaxis PT/OT/SLT to eval and treat At this time recommend continue workup for syncope vs. seizure Would not recommend adding AED at this time unless reveals indication for antiepileptic medication Telehealth Consultation Telehealth Information Telehealth Information: I performed this visit using a real-time telehealth connection between my location and the patients location ([facility]). After connecting through interactive tele-video, patient was identified by name and date of and/or wristband check.Patient (or authorized healthcare business banking representative) was informed that this was a telemedicine visit and it was being conducted confidentially over secure lines. My office door was closed and no one else was present in the room with me.Patient (or authorized healthcare business banking representative) provided consent to proceed with the visit, expressed an understanding of privacy and security of the telemedicine visit, and gave permission to have a hospital business banking representative in the room in order to assist with the visit and to conduct portions of the visit, as needed. I informed the patient (or authorized healthcare business banking representative) that I reviewed their record and presented the opportunity for them to ask any questions regarding the visit today. The patient agreed to participate. History of Present Illness Reason for Consultation: 73yo male with significant hx of dementia reportedly suffered traumatic brain injury in November of 2022 presented vis EM after reports of syncope. Per documentation review, his witnessed his eyes roll back and upper extremities shake he was noted to be incontinent of stool at time of the event. He is notably incontinent of urine at baseline. There was no report of tongue biting. No evidence of tongue biting at this time. He was reportedly able to follow commands shortly after the event. He has undergone emergent stroke imaging including CT brain without contrast, personally reviewed today, revealing no overt evidence of hemorrhage. I have performed televideo consultation. He is awake. Cannot answer orientation questions. He was holding his phone near his ear but nobody was on the phone with him upon initiation of televideo consultation. Exam performed in presence/with assistance of RN at bedside. He is able to name objects on televideo monitor. He is able to follow simple commands repeatedly. Neurological exam appears non lateralizing/nonfocal in terms of motor strength and coordination. Requesting Physician: Dr. Galeano Attending Physician: Chapo Quezada MD Allergies Allergy/AdvReac Type Severity Reaction Status Date / Time No Known Allergies Allergy Verified 03/11/23 16:37 Home Medications Medication Instructions Recorded Confirmed Type cyanocobalamin (vitamin B-12) 1,000 mcg PO DAILY 10/10/23 10/10/23 History pantoprazole 20 mg tablet,delayed 20 mg PO DAILY 10/10/23 10/10/23 History release Patient History Medical History History of gout [place] (hard of hearing) Lt > Rt Surgical History History of colonoscopy History of left cataract extraction History of left inguinal hernia repair History of right inguinal hernia repair History of vasectomy Family History Other No family history of adverse response to anesthesia Social History Smoking Status: Never smoker Second Hand Exposure: No; Do You Dip or Chew Tobacco: No; Hx Alcohol Use: Yes Alcohol type: beer and wine Hx Substance Use: No Preferred Language: Welsh Communication Ability: Impaired All Terrain Vehicle Racer Required: No Beliefs That Will Affect Care: None Current Living Situation: Spouse Feels Safe at Home: Yes Safety Concerns: Feels Safe At This Time Assistive Devices: Walker Results & Data Vital Signs (Past 12 Hours) Vital Signs Temp Pulse Pulse Resp BP Pulse Ox O2 Del Method 10/11/23 08:34 36.6 C 58 L 20 132/77 95 Room Air 10/11/23 07:13 60 10/11/23 03:40 36.7 C 65 18 125/73 94 Room Air 10/11/23 00:48 36.9 C 68 18 130/74 93 Room Air Laboratory Results Abnormal lab results 10/10/23 10/11/23 Range/Units 12:00 06:58 RBC 4.60 L (4.70-6.10) M/uL Hct 41.8 L (42.0-52.0) % [place] # (Auto) 0.73 H (0.11-0.59) K/uL BUN/Creatinine Ratio 21.3 H (10-20) Glucose 139 H 105 H (70-99(Fasting)) mg/dl Hemoglobin A1c 6.0 H (4.5-5.6) % Diagnostic Findings Chest X-Ray 10/10/23 12:23 SINGLE VIEW CHEST CLINICAL HISTORY: Generalized weakness. FINDINGS: An AP, portable, upright chest radiograph is compared to study dated 03/11/2023. The heart is enlarged. The pulmonary vasculature is noncongested. Chronic mucosal thickening is similar to previous. Left basilar opacities likely represent scarring/atelectasis. No large pleural effusion or pneumothorax is seen. The skeletal structures are osteopenic. The bony thorax is grossly intact. IMPRESSION: 1. Cardiomegaly without radiographic evidence of congestive failure. 2. Left basilar opacities likely represent scarring/atelectasis. Correlate clinically. ACT 112: Negative or not required by law. Electronically signed by: Torey Belle M.D. 10/10/2023 12:[address] 10/10/23 12:[address] DOSE: 663.26 mGy.cm HISTORY: shakiness, stool incontinence, near syncope, confusion TECHNIQUE: Multiaxial CT images of the head were performed without the use of intravenous contrast. Automated exposure control was utilized for this study. A dose lowering technique was utilized adhering to the principles of ALARA. Comparison: Head CT 03/11/2023. Findings: The paranasal sinuses and mastoid air cells are clear. The calvarium and skull base are intact. There is no mass, hematoma, midline shift, acute infarct. Moderate ventriculomegaly again noted. This appears to be out of portion to the sulcal atrophy and raises the possibility of normal pressure hydrocephalus. This is similar to the prior study. Periventricular white matter hypodensity persists Impression: 1. No acute infarct or intracranial hemorrhage. 2. Moderate ventriculomegaly again noted. This appears to be out of portion to the sulcal atrophy and raises the possibility of normal pressure hydrocephalus. This is similar to the prior study. ACT 112: Negative or not required by law. Electronically signed by: Dax Han M.D. 10/10/2023 1:18 PM Medications Administered Home Medications Medication Instructions Recorded Confirmed Last Taken cyanocobalamin (vitamin B-12) 1,000 mcg PO DAILY 10/10/23 10/10/23 10/10/23 pantoprazole 20 mg tablet,delayed 20 mg PO DAILY 10/10/23 10/10/23 10/10/23 release
--- NOTE | 2023-10-11 11:02 | Neurology Consultation ---
Date of Consultation October 11, 2023 Assessment & Plan (1) Syncope and collapse: Recommend continued work up to include the following: CTA head & neck MRI brain with and without contrast Echocardiogram as part of complete workup Recommend obtain EEG Provide seizure precautions Utilize benzodiazepines emergently for any breakthrough clinical seizure like activity Continue frequent neurological assessments Obtain stat CT brain without contrast for any acute neurological decline Continue to monitor orthostatic vital signs Continue to monitor/control blood pressure & blood glucose Continue to monitor telemetry closely Recommend ZioPatch at DC if no evidence of arrhythmia during inpatient monitoring Continue to monitor renal and hepatic function, keep euvolemic Metabolic workup should include hgbA1c, fasting lipids, homocysteine, TSH, D Dimer, RPR, urinalysis Ok from neurology perspective for VTE prophylaxis PT/OT/SLT to eval and treat At this time recommend continue workup for syncope vs. seizure Would not recommend adding AED at this time unless reveals indication for antiepileptic medication Telehealth Consultation Telehealth Information Telehealth Information: I performed this visit using a real-time telehealth connection between my location and the patients location ([facility]). After connecting through interactive tele-video, patient was identified by name and date of and/or wristband check.Patient (or authorized healthcare service representative) was informed that this was a telemedicine visit and it was being conducted confidentially over secure lines. My office door was closed and no one else was present in the room with me.Patient (or authorized healthcare service representative) provided consent to proceed with the visit, expressed an understanding of privacy and security of the telemedicine visit, and gave permission to have a hospital service representative in the room in order to assist with the visit and to conduct portions of the visit, as needed. I informed the patient (or authorized healthcare service representative) that I reviewed their record and presented the opportunity for them to ask any questions regarding the visit today. The patient agreed to participate. History of Present Illness Reason for Consultation: Syncope vs. Seizure Attending Physician: Chapo Quezada MD Allergies Allergy/AdvReac Type Severity Reaction Status Date / Time No Known Allergies Allergy Verified 03/11/23 16:37 Home Medications Medication Instructions Recorded Confirmed Type cyanocobalamin (vitamin B-12) 1,000 mcg PO DAILY 10/10/23 10/10/23 History pantoprazole 20 mg tablet,delayed 20 mg PO DAILY 10/10/23 10/10/23 History release Patient History Medical History History of gout [place] (hard of hearing) Lt > Rt Surgical History History of colonoscopy History of left cataract extraction History of left inguinal hernia repair History of right inguinal hernia repair History of vasectomy Family History Other No family history of adverse response to anesthesia Social History Smoking Status: Never smoker Second Hand Exposure: No; Do You Dip or Chew Tobacco: No; Hx Alcohol Use: Yes Alcohol type: beer and wine Hx Substance Use: No Preferred Language: Swedish Communication Ability: Impaired Aircraft Engine Mechanic Required: No Beliefs That Will Affect Care: None Current Living Situation: Spouse Feels Safe at Home: Yes Safety Concerns: Feels Safe At This Time Assistive Devices: Walker Physical Exam Neurological Examination: Mental Status: Awake Oriented to self Fluency naming appear grossly intact. Affect remains flat Will follow simple commands consistently CN testing: I: Difficult to reliably assess II:Difficult to reliably assess III/IV/: No evidence of gaze preference, hippus, nystagmus or roving eye movements V: Facial sensation is difficult to reliably assess VII: Facial movements appear without evidence of asymmetry VIII: Hearing appears grossly intact to loud voice IX/X: Palate is difficult to reliably assess XI: Shoulder shrug appears symmetric/ grossly intact bilaterally XII: Tongue protrudes midline without evidence of biting Motor exam: Strength appears grossly intact/symmetric in all extremities Sensory: Sensation is difficult to reliably assess Coordination: Deferred Reflexes: Deferred Gait: Deferred Results & Data Vital Signs (Past 12 Hours) Vital Signs Temp Pulse Pulse Resp BP Pulse Ox O2 Del Method 10/11/23 08:34 36.6 C 58 L 20 132/77 95 Room Air 10/11/23 07:13 60 10/11/23 03:40 36.7 C 65 18 125/73 94 Room Air 10/11/23 00:48 36.9 C 68 18 130/74 93 Room Air
[2023-10-11] MEDS: OPTIRAY 320 125ml IV ONE (11:45)
--- NOTE | 2023-10-11 12:04 | CT Scan Report ---
CT ANGIOGRAM OF THE BRAIN; CT ANGIOGRAM OF THE NECK CLINICAL HISTORY: Syncope COMPARISON STUDY: Unenhanced CT of the brain dated 10/10/2023. TECHNIQUE: Following the IV administration of 119 of Optiray 320, CT angiogram of the head and neck w as performed from the aortic arch to the vertex. Images are reviewed in the axial, sagittal, and kyler nal planes. 3-D MIPS images are created and assessed. IV contrast was administered without complicati on. All measurements were calculated based on NASCET criteria. A dose lowering technique was utilize d adhering to the principles of ALARA. CT DOSE: 533.28 mGy.cm FINDINGS: Brain parenchyma: There is age-related involutional change noting advanced subcortical and periventri cular microangiopathic disease. There is no evidence of hemorrhage, mass effect, or acute territorial ischemia noting angiographic phase technique. There is no evidence of enhancing mass lesion on the a ngiogram phase images. The ventricles, sulci, and cisterns are prominent secondary to involutional ch rodney. Ventriculomegaly is again noted. Nassar-white matter differentiation is preserved. No extra-axial fluid collection is seen. Thoracic aorta: Visualized portions of the thoracic aorta are normal in caliber. The aortic arch demo nstrates standard 3-vessel anatomy. Right carotid arterial system: The right common carotid artery is widely patent, as are the right int ernal carotid artery. Mild calcified plaque is seen in the carotid bulb. Left carotid arterial system: The left common carotid artery is widely patent, as are the left internal audit director al and external carotid arteries. Minimal calcified plaque is noted in the carotid bulb. Vertebral arteries: Widely patent bilaterally and codominant. Subclavian arteries: Widely patent bilaterally noting atherosclerotic plaque on the left. Intracranial vasculature: The internal carotid arteries are patent at the skull base, as are the ante rior and middle cerebral arteries bilaterally. The vertebrobasilar system and posterior cerebral odalis los are widely patent. The vertebral arteries are codominant. There is a large right posterior commu nicating artery. There is no aneurysm, high-grade stenosis, or focal vessel cut off seen throughout t he intracranial circulation. Jugular veins: Patent bilaterally. Dural sinuses: Patent. Lung apices: Partially visualized upper lobe lung parenchyma appears clear. Soft tissues: The visualized pharyngeal soft tissues are normal in appearance noting angiographic pha se technique. The oropharyngeal airway appears widely patent. The salivary and thyroid glands are nor mal in appearance. No cervical lymphadenopathy is seen. Skeletal structures: The skeletal structures are osteopenic. The calvarium appears intact. The cervic al spine is maintained noting multilevel spondylosis. Orbits: The bony orbits are intact. Orbital contents are normal as visualized noting bilateral ocular lens implants. Sinuses and mastoids: There is mild mucosal thickening within the maxillary antra. The remaining para nasal sinuses are clear. The mastoid air cells are well pneumatized. IMPRESSION: 1. There is no evidence of hemorrhage, mass effect, or acute territorial ischemia noting angiographic phase technique. 2. Unremarkable CT angiogram of the brain. 3. Unremarkable CT angiogram of the neck. ACT 112: Negative or not required by law. Electronically signed by: Torey Belle M.D. 10/11/2023 12:02 PM
[2023-10-11] MEDS: GADOBUTROL 65ML VIAL IV ONE ×3 (12:15→13:01)
--- NOTE | 2023-10-11 13:30 | Hospitalist Progress Note ---
Date of Service October 11, 2023 Assessment & Plan (1) Syncope and collapse: (2) Moderate Alzheimer's dementia: Plan Mr. Arevalo is a 73 year old gentleman with moderate Alzhemier's dementia, GERD, traumatic fall c/b SAH 11/2022 presented to [facility] ED due to syncopal episode. Patient asymptomatic at time of exam. Concern is raised given his history of SAH, progressive cognitive impairment of this events ,prompting neuro consult. Symptoms suggestive of prodromal vasovagal event. #Syncope with convulsive movements #History of SAH unwitnessed fall 11/2022, found down, CT with small right SAH Hold chemoprophylaxis episodes of diaphoresis, pallor, incontinence suggestive of vasovagal episode, however given progressive cognitive impairment s/p traumatic injury No longer on medications for dementia 2/2 ADRs Neurology consult for any further evaluation -No clear postictal phase, patient followed commands nearly 1 minute post episode, however, multiple episodes and concerning history warrant discussion with neuro A1C and lipid panel in am--6.0 ECHO of the heart showed LV systolic function is normal with EF of 60 to 65%, mild aortic regurgitation, mild aortic root dilatation at 4.1 cm, normal inferior vena cava size and collapsibility with sleep indicates an normal right atrial pressure of 3 mmHg No arrhythmias on monitor Fall precautions Appreciate neurology input and recommendation-CTA of the head and neck were unremarkable. MRI report is pending He does not have any neurological symptoms EEG has been ordered Lipid profile will be checked tomorrow #Moderate Alzhemier's Dementia Continue to follow with neurology delirium precautions continue b12 #GERD continue ppi #BPH with incontinence wears depends at home UA negative #Aortic root aneurysm last echo 2022 Aortic root is minimally dilated at 4.1 cm, Prox ascending aorta is minimally enlarged at 4.1 cm. No acute cardiac symptoms DVT ppx SCDs Will administer subcu heparin Admission and Anticipated Discharge Date Admission Date: October 10, 2023 Subjective 10/11/2023 The patient was seen and examined in medical telemetry unit He has mild dementia but does not have any acute delirium Denies any significant symptoms Review of Systems Review of Systems: All systems reviewed and are unremarkable except as noted below Physical Exam Physical Exam: Lying in bed without any acute distress Constitutional: well developed, well nourished and + ill appearing Eyes: PERRL, conjunctivae normal, anicteric sclerae ENMT: external ear and nose normal, oropharynx normal Neck: trachea midline, no thyromegaly Respiratory: no respiratory distress Auscultation: lungs clear to auscultation bilaterally Cardiovascular: Rate/Rhythm: regular rate and regular rhythm; not tachycardic Heart Sounds: normal S1 and normal S2; no murmur Extremities: no edema Gastrointestinal (Abdomen): Inspection/Auscultation: normal bowel sounds; abdomen not distended Percussion/Palpation: abdomen soft; abdomen nontender Musculoskeletal: No acute arthritis involving any of the joints Neurologic: normal touch/pain/proprioception and moves all extremities; no focal motor deficits Lymphatic: no cervical or axillary lymphadenopathy Results & Data Results & Data Vital Signs (Past 12 Hours) Vital Signs Temp Pulse Pulse Resp BP Pulse Ox O2 Del Method 10/11/23 11:44 36.4 C L 69 20 114/69 95 Room Air 10/11/23 08:34 36.6 C 58 L 20 132/77 95 Room Air 10/11/23 07:13 60 10/11/23 03:40 36.7 C 65 18 125/73 94 Room Air Laboratory Results Short CBC 10/11/23 Range/Units 06:58 WBC 8.99 (4.8-10.8) K/ul Hgb 14.2 (14.0-18.0) g/dl Hct 41.8 L (42.0-52.0) % Plt Count 189 (130-400) K/uL BMP 10/11/23 06:58 Sodium 139 Potassium 4.1 Chloride 107 Carbon Dioxide 26 BUN 19 Creatinine 1.03 Glucose 105 H Calcium 8.8 Urine 10/10/23 Range/Units 15:10 Urine Color Yellow Urine Appearance Clear (Clear) Urine pH 5.5 (4.5-7.5) Ur Specific [place] 1.022 (1.000-1.030) Urine Protein Negative (Negative) Urine Glucose (UA) Negative (Negative) Medications Administered Current Inpatient Medications Acetaminophen (Acetaminophen 325 Mg Tab) 650 mg PO Q4H PRN PRN Reason: Pain or Fever Stop: 11/09/23 18:16
--- NOTE | 2023-10-11 13:37 | Magnetic Resonance Report ---
MRI OF THE BRAIN COMBO CLINICAL HISTORY: Syncope. Change in mental status. COMPARISON STUDY: CT of the brain dated 10/10/2023. TECHNIQUE: MRI of the brain was performed utilizing various T1 and T2-weighted sequences in the axial , sagittal, and coronal planes. Contrast-enhanced sequences were acquired following the administratio n of 8.5 cc of Gadavist. FINDINGS: Brain parenchyma: There is a punctate focus of restricted diffusion versus artifact seen within the i nferior left cerebellar hemisphere on image #4. This could not be corroborated on the ADC maps. No ad ditional foci of restricted diffusion are identified. There is no hemorrhage or mass effect. There is age-related involutional change noting advanced confluent subcortical and periventricular microangio pathic disease. No enhancing mass lesion is identified on the postcontrast images. Nassar-white matter differentiation is preserved. No extra-axial fluid collection is seen. The cerebellar tonsils are nor mal in configuration. Ventricles, sulci, and cisterns: Ventriculomegaly is similar to previous. Pituitary and sella: Unremarkable. Intracranial vasculature: Normal flow voids are maintained at the skull base. Orbits: The bony orbits are grossly intact. Orbital contents are normal in appearance noting bilatera l ocular lens implants. Sinuses and mastoids: Clear. Calvarium: Unremarkable. Cervical cord: Partially visualized cervical spinal cord is normal in morphology and signal intensity . IMPRESSION: 1. There is a punctate focus of artifact versus restricted diffusion in the left cerebellar hemispher e. A tiny lacunar infarct is not excluded. 2. No additional foci of restricted diffusion are identified. 3. There is no hemorrhage or mass effect. 4. Additional findings as above. ACT 112: Negative or not required by law. Electronically signed by: Torey Belle M.D. 10/11/2023 1:35 PM
--- NOTE | 2023-10-11 15:38 | Communication Note ---
Date of Service: October 11, 2023 Communicated directly with primary/hospitalist team Dr. Quezada MRI brain reviewed Recommend continue stroke workup DAPT for at least 3 weeks followed by monotherapy with 81mg ASA EC daily Recommend 81mg ASA EC & 75mg clopidogrel Continue high dose statin therapy indefinitely if tolerated
--- NOTE | 2023-10-11 16:25 | Communication Note ---
Date of Service: October 11, 2023 Communicated directly with primary/hospitalist team reportedly is not interested in adding new medications Agree with decision, recommend continued follow up with Neuropsych in [place]
[2023-10-11] MEDS: HEPARIN SOD 5,000 UNIT/0.5 ML VIAL SQ SCH (19:25)
[2023-10-11] MEDS: OLANZapine ZYDIS 5 MG ORALLY DIS. TAB PO STA (22:46)
[2023-10-12 05:46] LABS: Basophils # (auto) 0.06 K/uL (0.00-0.20); Basophils % (auto) 0.8 %; Eosinophils # (auto) 0.24 K/uL (0.00-0.50); Eosinophils % (auto) 3.3 %; Hematocrit (blood only) 41.3 % (42.0-52.0); Hemoglobin 14.3 g/dl (14.0-18.0); Immature Granulocytes # (auto) 0.02 K/uL (0.01-0.20); Immature Granulocytes % (auto) 0.3 %; Lymphocytes # (auto) 2.26 K/uL (1.20-3.40); Mean Corpuscular Hemoglobin 31.4 pg (25.0-34.0); Mean Corpuscular Hgb Conc 34.6 g/dL (32.0-36.0); Mean Corpuscular Volume 90.6 fL (80.0-100.0); Mean Platelet Volume 9.7 fL (9.4-12.4); Monocytes # (auto) 0.84 K/uL (0.11-0.59); Monocytes % (auto) 11.5 %; Neutrophils # (auto) 3.86 K/uL (1.40-6.50); Neutrophils % (auto) 53.1 %; Platelet Count 174 K/uL (130-400); RDW Coefficient of Variation 12.8 % (11.5-14.5); RDW Standard Deviation 42.7 fL (36.4-46.3); Red Blood Count 4.56 M/uL (4.70-6.10); White Blood Count 7.28 K/ul (4.8-10.8)
[2023-10-12 06:04] LABS: BUN Creatinine Ratio 20.6 (10-20); Calcium 8.8 mg/dl (8.6-10.3); Chol HDL Ratio 4.6 (0-5); Creatinine Clr Calc Pharmacy 72.2 ml/min; Est GFR (African American) 88.1 ml/min; Est GFR (Non-African American) 76.1 ml/min; Potassium 3.9 mmol/L (3.5-5.1)
--- NOTE | 2023-10-12 13:00 | Hospitalist Progress Note ---
Date of Service October 12, 2023 Assessment & Plan (1) Syncope and collapse: (2) Moderate Alzheimer's dementia: Plan Mr. Arevalo is a 73 year old gentleman with moderate Alzhemier's dementia, GERD, traumatic fall c/b SAH 11/2022 presented to [facility] ED due to syncopal episode. Patient asymptomatic at time of exam. Concern is raised given his history of SAH, progressive cognitive impairment of this events ,prompting neuro consult. Symptoms suggestive of prodromal vasovagal event. #Syncope with convulsive movements #History of SAH unwitnessed fall 11/2022, found down, CT with small right SAH Hold chemoprophylaxis episodes of diaphoresis, pallor, incontinence suggestive of vasovagal episode, however given progressive cognitive impairment s/p traumatic injury No longer on medications for dementia / ADRs Neurology consult for any further evaluation -No clear postictal phase, patient followed commands nearly 1 minute post episode, however, multiple episodes and concerning history warrant discussion with neuro A1C and lipid panel in am--6.0 ECHO of the heart showed LV systolic function is normal with EF of 60 to 65%, mild aortic regurgitation, mild aortic root dilatation at 4.1 cm, normal inferior vena cava size and collapsibility with sleep indicates an normal right atrial pressure of 3 mmHg No arrhythmias on monitor Fall precautions Appreciate neurology input and recommendation-CTA of the head and neck were unremarkable. MRI report is pending He does not have any neurological symptoms EEG has been ordered Lipid profile will be checked tomorrow-lipid profile noted cholesterol is 210 No known neurological symptoms Awaiting EEG #Moderate Alzhemier's Dementia Continue to follow with neurology delirium precautions continue b12 Has had acute delirium last night Settled this morning #GERD continue ppi #BPH with incontinence wears depends at home UA negative #Aortic root aneurysm last echo 2022 Aortic root is minimally dilated at 4.1 cm, Prox ascending aorta is minimally enlarged at 4.1 cm. No acute cardiac symptoms DVT ppx SCDs Will administer subcu heparin Admission and Anticipated Discharge Date Admission Date: October 10, 2023 Subjective 10/11/2023 The patient was seen and examined in medical telemetry unit He has mild dementia but does not have any acute delirium Denies any significant symptoms 10/12/2023 The patient was seen and examined in medical telemetry unit He has been stable this morning Has had agitation last night and required 1 dose of oral Zyprexa Has been feeling much better this morning without any significant symptoms Review of Systems Review of Systems: All systems reviewed and are unremarkable except as noted below Physical Exam Physical Exam: Lying in bed without any acute distress Constitutional: well developed, well nourished and + ill appearing Eyes: PERRL, conjunctivae normal, anicteric sclerae ENMT: external ear and nose normal, oropharynx normal Neck: trachea midline, no thyromegaly Respiratory: no respiratory distress Auscultation: lungs clear to auscultation bilaterally Cardiovascular: Rate/Rhythm: regular rate and regular rhythm; not tachycardic Heart Sounds: normal S1 and normal S2; no murmur Extremities: no edema Gastrointestinal (Abdomen): Inspection/Auscultation: normal bowel sounds; abdomen not distended Percussion/Palpation: abdomen soft; abdomen nontender Musculoskeletal: No acute arthritis involving any of the joints Neurologic: normal touch/pain/proprioception and moves all extremities; no focal motor deficits Lymphatic: no cervical or axillary lymphadenopathy Results & Data Results & Data Vital Signs (Past 12 Hours) Vital Signs Temp Pulse Pulse Resp BP Pulse Ox O2 Del Method 10/12/23 10:51 36.5 C 52 L 16 132/83 94 Room Air 10/12/23 07:13 57 L Laboratory Results Short CBC 10/12/23 Range/Units 05:30 WBC 7.28 (4.8-10.8) K/ul Hgb 14.3 (14.0-18.0) g/dl Hct 41.3 L (42.0-52.0) % Plt Count 174 (130-400) K/uL BMP 10/12/23 05:30 Sodium 139 Potassium 3.9 Chloride 106 Carbon Dioxide 26 BUN 20 Creatinine 0.97 Glucose 90 Calcium 8.8 Medications Administered Current Inpatient Medications Acetaminophen (Acetaminophen 325 Mg Tab) 650 mg PO Q4H PRN PRN Reason: Pain or Fever Stop: 11/09/23 18:16 Heparin Sodium (Porcine) (Heparin Sod 5,000 Unit/0.5 Ml Vial) 5,000 units SQ Q12 MASON Stop: 11/10/23 20:59 Last Admin: 10/12/23 10:47 Dose: 5,000 units
[2023-10-12] MEDS: OLANZapine ZYDIS 5 MG ORALLY DIS. TAB PO PRN (17:25)
[2023-10-12] MEDS: ACETAMINOPHEN 325 MG TAB PO PRN (22:31)
--- NOTE | 2023-10-13 12:31 | Hospitalist Progress Note ---
Date of Service October 13, 2023 Assessment & Plan (1) Syncope and collapse: (2) Moderate Alzheimer's dementia: Plan Mr. Arevalo is a 73 year old gentleman with moderate Alzhemier's dementia, GERD, traumatic fall c/b SAH 11/2022 presented to [facility] ED due to syncopal episode. Patient asymptomatic at time of exam. Concern is raised given his history of SAH, progressive cognitive impairment of this events ,prompting neuro consult. Symptoms suggestive of prodromal vasovagal event. #Syncope with convulsive movements #History of SAH unwitnessed fall 11/2022, found down, CT with small right SAH Hold chemoprophylaxis episodes of diaphoresis, pallor, incontinence suggestive of vasovagal episode, however given progressive cognitive impairment s/p traumatic injury No longer on medications for dementia 2/ ADRs Neurology consult for any further evaluation -No clear postictal phase, patient followed commands nearly 1 minute post episode, however, multiple episodes and concerning history warrant discussion with neuro A1C and lipid panel in am--6.0 ECHO of the heart showed LV systolic function is normal with EF of 60 to 65%, mild aortic regurgitation, mild aortic root dilatation at 4.1 cm, normal inferior vena cava size and collapsibility with sleep indicates an normal right atrial pressure of 3 mmHg No arrhythmias on monitor Fall precautions Appreciate neurology input and recommendation-CTA of the head and neck were unremarkable. MRI report is pending He does not have any neurological symptoms EEG has been ordered Lipid profile will be checked tomorrow-lipid profile noted cholesterol is 210 No known neurological symptoms Awaiting EEG-EEG was done this morning and awaiting results Has had physical therapy and recommended home Likely go home this afternoon #Moderate Alzhemier's Dementia Continue to follow with neurology delirium precautions continue b12 Has had acute delirium last night Settled this morning Strongly advised to see his neuropsychologist following discharge #GERD continue ppi #BPH with incontinence wears depends at home UA negative #Aortic root aneurysm last echo 2022 Aortic root is minimally dilated at 4.1 cm, Prox ascending aorta is minimally enlarged at 4.1 cm. No acute cardiac symptoms DVT ppx SCDs Will administer subcu heparin Admission and Anticipated Discharge Date Admission Date: October 12, 2023 Subjective 10/11/2023 The patient was seen and examined in medical telemetry unit He has mild dementia but does not have any acute delirium Denies any significant symptoms 10/12/2023 The patient was seen and examined in medical telemetry unit He has been stable this morning Has had agitation last night and required 1 dose of oral Zyprexa Has been feeling much better this morning without any significant symptoms 10/13/2023 The patient was seen and examined in medical telemetry unit He has been stable without any acute distress and her symptoms Denies any numbness and or tingling in the extremities, no weakness in the particular side, and no seizure activity Review of Systems Review of Systems: All systems reviewed and are unremarkable except as noted below Physical Exam Physical Exam: Lying in bed without any acute distress Constitutional: well developed, well nourished and + ill appearing Eyes: PERRL, conjunctivae normal, anicteric sclerae ENMT: external ear and nose normal, oropharynx normal Neck: trachea midline, no thyromegaly Respiratory: no respiratory distress Auscultation: lungs clear to auscultation bilaterally Cardiovascular: Rate/Rhythm: regular rate and regular rhythm; not tachycardic Heart Sounds: normal S1 and normal S2; no murmur Extremities: no edema Gastrointestinal (Abdomen): Inspection/Auscultation: normal bowel sounds; abdomen not distended Percussion/Palpation: abdomen soft; abdomen nontender Neurologic: normal touch/pain/proprioception and moves all extremities; no focal motor deficits Lymphatic: no cervical or axillary lymphadenopathy Results & Data Results & Data Vital Signs (Past 12 Hours) Vital Signs Temp Pulse Pulse Resp BP Pulse Ox O2 Del Method 10/13/23 11:46 36.3 C L 59 L 20 134/85 96 Room Air 10/13/23 11:16 62 10/13/23 07:43 36.4 C L 57 L 20 144/88 H 92 Room Air 10/13/23 05:00 36.4 C L 50 L 18 123/72 97 Room Air Medications Administered Current Inpatient Medications Acetaminophen (Acetaminophen 325 Mg Tab) 650 mg PO Q4H PRN PRN Reason: Pain or Fever Stop: 11/09/23 18:16 Last Admin: 10/12/23 22:31 Dose: 650 mg Heparin Sodium (Porcine) (Heparin Sod 5,000 Unit/0.5 Ml Vial) 5,000 units SQ Q12 MASON Stop: 11/10/23 20:59 Last Admin: 10/13/23 10:15 Dose: 5,000 units Olanzapine (Olanzapine Zydis 5 Mg Orally Dis. Tab) 5 mg PO Q8H PRN PRN Reason: Anxiety/Agitation Stop: 11/11/23 16:29 Last Admin: 10/12/23 17:25 Dose: 5 mg
[2023-10-14] MEDS: OLANZapine 10 MG/2.1 ML SDV IM STA (02:17)
--- NOTE | 2023-10-14 06:05 | Electroencephalogram ---
EEG Procedure Note Date of Service October 13, 2023 Start / End Times Start Time: 06:18 End Time: 06:[address] Chapo Quezada History A 73 year old male with confusion and possible seizure. EEG performed for evalation of epileptiform activity. Home Medication List Medication Instructions Recorded Confirmed Type cyanocobalamin (vitamin B-12) 1,000 mcg PO DAILY 10/10/23 10/10/23 History pantoprazole 20 mg tablet,delayed 20 mg PO DAILY 10/10/23 10/10/23 History release Inpatient Medication List Acetaminophen (Acetaminophen 325 Mg Tab) 650 mg PO Q4H PRN PRN Reason: Pain or Fever Stop: 11/09/23 18:16 Last Admin: 10/12/23 22:31 Dose: 650 mg Documented By: MANUEL Heparin Sodium (Porcine) (Heparin Sod 5,000 Unit/0.5 Ml Vial) 5,000 units SQ Q12 MASON Stop: 11/10/23 20:59 Last Admin: 10/13/23 19:26 Dose: 5,000 units Documented By: Admin: 10/13/23 10:15 Dose: 5,000 units Documented By: ROSE MARY Admin: 10/12/23 19:31 Dose: 5,000 units Documented By: Admin: 10/12/23 10:47 Dose: 5,000 units Documented By: Admin: 10/11/23 19:25 Dose: 5,000 units Documented By: MANUEL Olanzapine (Olanzapine Zydis 5 Mg Orally Dis. Tab) 5 mg PO Q8H PRN PRN Reason: Anxiety/Agitation Stop: 11/11/23 16:29 Last Admin: 10/13/23 20:18 Dose: 5 mg Documented By: Admin: 10/12/23 17:25 Dose: 5 mg Documented By: ALESHIA Discontinued Medications Gadobutrol (Gadobutrol 65ml Vial) 8.5 ml IV ONCE ONE Stop: 10/11/23 12:09 Last Admin: 10/11/23 13:01 Dose: Not Given Documented By: ALESHIA Gadobutrol (Gadobutrol 65ml Vial) 8.5 ml IV ONCE ONE Stop: 10/11/23 12:10 Last Admin: 10/11/23 13:01 Dose: Not Given Documented By: ALESHIA Gadobutrol (Gadobutrol 65ml Vial) 8.5 ml IV ONCE ONE Stop: 10/11/23 12:15 Last Admin: 10/11/23 12:15 Dose: 8.5 ml Documented By: YVON Sodium Chloride (Nss) 1,000 mls @ 999 mls/hr IV .Q1H1M MASON Stop: 10/10/23 13:30 Last Infusion: 10/10/23 14:15 Dose: Infused Documented By: Admin: 10/10/23 12:55 Dose: 999 mls/hr Documented By: LINESY Ioversol (Optiray 320 125ml) 119 ml IV ONCE ONE Stop: 10/11/23 11:45 Last Admin: 10/11/23 11:45 Dose: 119 ml Documented By: MARICHUY Olanzapine (Olanzapine Zydis 5 Mg Orally Dis. Tab) 5 mg PO NOW STA Stop: 10/11/23 22:20 Last Admin: 10/11/23 22:46 Dose: 5 mg Documented By: MANUEL Olanzapine (Olanzapine 10 Mg/2.1 Ml Sdv) 2.5 mg IM NOW STA Stop: 10/14/23 02:11 Last Admin: 10/14/23 02:17 Dose: 2.5 mg Documented By: MANUEL Ondansetron HCl (Ondansetron Inj 2 Mg/Ml 2 Ml Vial) 4 mg IV NOW STA Stop: 10/10/23 12:23 Last Admin: 10/10/23 14:15 Dose: Not Given Documented By: LINSEY Description This is a 21 electrode EEG with a single channel dedicated to limited EKG. The electrodes were placed in accordance with the International 10-20 system. REPORT: At the onset of the EEG the patient is awake. The background is continuous and symmetric. There is a loss of the normal anterior to to posterior gradient. The background consist of 5-7 theta activity with some intermixed delta activity. Photic does not induce any additional abnormalities. Interpretation IMPRESSION: This is an abnormal routine EEG due to generalized background slowing suggestive of a non specific encephalopathy. No epileptiform activity is seen.
--- NOTE | 2023-10-14 13:54 | Hospitalist Progress Note ---
Date of Service October 14, 2023 Assessment & Plan (1) Syncope and collapse: (2) Moderate Alzheimer's dementia: Plan Mr. Arevalo is a 73 year old gentleman with moderate Alzhemier's dementia, GERD, traumatic fall c/b SAH 11/2022 presented to [facility] ED due to syncopal episode. Patient asymptomatic at time of exam. Concern is raised given his history of SAH, progressive cognitive impairment of this events ,prompting neuro consult. Symptoms suggestive of prodromal vasovagal event. #Syncope with convulsive movements #History of SAH unwitnessed fall 11/2022, found down, CT with small right SAH Hold chemoprophylaxis episodes of diaphoresis, pallor, incontinence suggestive of vasovagal episode, however given progressive cognitive impairment s/p traumatic injury No longer on medications for dementia 2/ ADRs Neurology consult for any further evaluation -No clear postictal phase, patient followed commands nearly 1 minute post episode, however, multiple episodes and concerning history warrant discussion with neuro A1C and lipid panel in am--6.0 ECHO of the heart showed LV systolic function is normal with EF of 60 to 65%, mild aortic regurgitation, mild aortic root dilatation at 4.1 cm, normal inferior vena cava size and collapsibility with sleep indicates an normal right atrial pressure of 3 mmHg No arrhythmias on monitor Fall precautions Appreciate neurology input and recommendation-CTA of the head and neck were unremarkable. MRI report is pending He does not have any neurological symptoms EEG has been ordered Lipid profile will be checked tomorrow-lipid profile noted cholesterol is 210 No known neurological symptoms Awaiting EEG-EEG was done this morning and awaiting results Has had physical therapy and recommended home EEG has been negative for any seizure activity The wants him to go to [facility] and awaiting placement #Moderate Alzhemier's Dementia Continue to follow with neurology delirium precautions continue b12 Has had acute delirium last night Settled this morning Strongly advised to see his neuropsychologist following discharge Required another dose of IM Zyprexa last night Will continue with oral Zyprexa as needed #GERD continue ppi #BPH with incontinence wears depends at home UA negative #Aortic root aneurysm last echo 2022 Aortic root is minimally dilated at 4.1 cm, Prox ascending aorta is minimally enlarged at 4.1 cm. No acute cardiac symptoms DVT ppx SCDs Will administer subcu heparin Admission and Anticipated Discharge Date Admission Date: October 12, 2023 Subjective 10/11/2023 The patient was seen and examined in medical telemetry unit He has mild dementia but does not have any acute delirium Denies any significant symptoms 10/12/2023 The patient was seen and examined in medical telemetry unit He has been stable this morning Has had agitation last night and required 1 dose of oral Zyprexa Has been feeling much better this morning without any significant symptoms 10/13/2023 The patient was seen and examined in medical telemetry unit He has been stable without any acute distress and her symptoms Denies any numbness and or tingling in the extremities, no weakness in the particular side, and no seizure activity 10/14/2023 The patient was seen and examined in medical telemetry unit He was noted to be agitated and required 1 dose of Zyprexa IM last night Has been feeling much better and remains pleasantly confused this morning Awaiting placement Review of Systems Review of Systems: All systems reviewed and are unremarkable except as noted below Physical Exam Physical Exam: Lying in bed without any acute distress Constitutional: well developed, well nourished and + ill appearing Eyes: PERRL, conjunctivae normal, anicteric sclerae ENMT: external ear and nose normal, oropharynx normal Neck: trachea midline, no thyromegaly Respiratory: no respiratory distress Auscultation: lungs clear to auscultation bilaterally Cardiovascular: Rate/Rhythm: regular rate and regular rhythm; not tachycardic Heart Sounds: normal S1 and normal S2; no murmur Extremities: no edema Gastrointestinal (Abdomen): Inspection/Auscultation: normal bowel sounds; abdomen not distended Percussion/Palpation: abdomen soft; abdomen nontender Musculoskeletal: No acute arthritis involving any of the joint Neurologic: normal touch/pain/proprioception and moves all extremities; no fo bre motor deficits Lymphatic: no cervical or axillary lymphadenopathy Results & Data Results & Data Vital Signs (Past 12 Hours) Vital Signs Temp Pulse Resp BP Pulse Ox O2 Del Method 10/14/23 10:37 36.1 C L 71 16 130/84 94 Room Air Medications Administered Current Inpatient Medications Acetaminophen (Acetaminophen 325 Mg Tab) 650 mg PO Q4H PRN PRN Reason: Pain or Fever Stop: 11/09/23 18:16 Last Admin: 10/12/23 22:31 Dose: 650 mg Heparin Sodium (Porcine) (Heparin Sod 5,000 Unit/0.5 Ml Vial) 5,000 units SQ Q12 MASON Stop: 11/10/23 20:59 Last Admin: 10/14/23 09:32 Dose: Not Given Olanzapine (Olanzapine Zydis 5 Mg Orally Dis. Tab) 5 mg PO Q8H PRN PRN Reason: Anxiety/Agitation Stop: 11/11/23 16:29 Last Admin: 10/13/23 20:18 Dose: 5 mg
--- NOTE | 2023-10-14 16:23 | Communication Note ---
Date of Service: October 14, 2023 IMPRESSION: This is an abnormal routine EEG due to generalized background slowing suggestive of a non specific encephalopathy. No epileptiform activity is seen. No need for AEDs
[2023-10-14] MEDS: OLANZapine ZYDIS 5 MG ORALLY DIS. TAB PO SCH (21:06)
--- NOTE | 2023-10-15 19:50 | Hospitalist Progress Note ---
Date of Service October 15, 2023 Assessment & Plan (1) Syncope and collapse: (2) Moderate Alzheimer's dementia: Plan Mr. Arevalo is a 73 year old gentleman with moderate Alzhemier's dementia, GERD, traumatic fall c/b SAH 11/2022 presented to [facility] ED due to syncopal episode. Patient asymptomatic at time of exam. Concern is raised given his history of SAH, progressive cognitive impairment of this events ,prompting neuro consult. Symptoms suggestive of prodromal vasovagal event. Syncope with convulsive movements H/O SAH Unwitnessed fall 11/2022, found down, CT with small right SAH. Progressive cognitive impairment S/P TBI Cannot rule out CVA Possible vasovagal episode --MRI Brain:here is a punctate focus of artifact versus restricted diffusion in the left cerebellar hemisphere. A tiny lacunar infarct is not excluded. No additional foci of restricted diffusion are identified. There is no hemorrhage or mass effect. --Head/Neck CTA:There is no evidence of hemorrhage, mass effect, or acute territorial ischemia noting angiographic phase technique. Unremarkable CT angiogram of the brain. Unremarkable CT angiogram of the neck. --ECHO: Left ventricular systolic function is normal. EF 60 to 65%. Mild aortic regurgitation. Mild aortic root dilatation 4.1 cm. Normal inferior vena cava size and collapsibility with sniff indicates a normal right atrial pressure of 3 mmHg --EEG:This is an abnormal routine EEG due to generalized background slowing suggestive of a non specific encephalopathy. No epileptiform activity is seen. No longer on medications for dementia 2/2 ADRs Appreciate neurology input Neurology recommends dual antiplatelet therapy, patient's family currently prefers not to be started on any new medications Fall precautions PT OT Needs rehab placement Needs follow-up with neurology on discharge Moderate Alzhemier's Dementia Delirium precautions continue b12 Needs neuropsychologist following discharge Zyprexa as needed GERD continue PPI BPH with incontinence wears depends at home UA negative Monitor for any retention Prediabetes HbA1c 6.0 Aortic root aneurysm Last echo 2022 Aortic root is minimally dilated at 4.1 cm, Prox ascending aorta is minimally enlarged at 4.1 cm. No acute cardiac symptoms DVT Px: Heparin SQ CODE STATUS Full code Disposition Rehab when accepted Admission and Anticipated Discharge Date Admission Date: October 12, 2023 Subjective Patient is seen and examined at bedside States feeling well today Offers no new complaints Discussed with patient's daughter at bedside Waiting for rehab placement Review of Systems Review of Systems: Unobtainable due to cognitive status Physical Exam Physical Exam: Physical Exam: Vitals signs as noted above General Appearance:Moderately built and nourished, no apparent distress, chronic ill appearing Head: normocephalic, Atraumatic Eyes: normal inspection, EOMI Neck: supple, Trachea midline Respiratory/Chest: Normal breath sounds, CTA, No accessory muscle use Cardiovascular: S1, S2, No murmur Abdomen/GI:Soft, Non tender, Bowel sounds present Extremities/Musculoskeletal:normal inspection, no edema Neurologic/Psych:AAOX2, grossly no focal neurological deficits, +Dementia Skin: normal color, warm Results & Data Results & Data Vital Signs (Past 12 Hours) Vital Signs Temp Pulse Resp BP Pulse Ox O2 Del Method 10/15/23 11:43 36.6 C 59 L 18 108/71 96 Room Air
[2023-10-16 07:57] VITALS: RESP 16
[2023-10-16] MEDS: PANTOprazole 40 MG TAB PO SCH (08:23)
[2023-10-16 09:30] LABS: BUN Creatinine Ratio 26.7 (10-20); Calcium 9.2 mg/dl (8.6-10.3); Creatinine Clr Calc Pharmacy 60.4 ml/min; Est GFR (Non-African American) 61.3 ml/min; Potassium 4.2 mmol/L (3.5-5.1)
[2023-10-16 11:49] VITALS: PULSE 62; TEMP 97.5; O2SAT 96
--- NOTE | 2023-10-16 11:55 | Hospitalist Progress Note ---
Date of Service October 16, 2023 Assessment & Plan (1) Syncope and collapse: (2) Moderate Alzheimer's dementia: Plan Mr. Arevalo is a 73 year old gentleman with moderate Alzhemier's dementia, GERD, traumatic fall c/b SAH 11/2022 presented to [facility] ED due to syncopal episode. Patient asymptomatic at time of exam. Concern is raised given his history of SAH, progressive cognitive impairment of this events ,prompting neuro consult. Symptoms suggestive of prodromal vasovagal event. Syncope with convulsive movements H/O SAH Unwitnessed fall 11/2022, found down, CT with small right SAH. Progressive cognitive impairment S/P TBI Cannot rule out CVA Possible vasovagal episode --MRI Brain:here is a punctate focus of artifact versus restricted diffusion in the left cerebellar hemisphere. A tiny lacunar infarct is not excluded. No additional foci of restricted diffusion are identified. There is no hemorrhage or mass effect. --Head/Neck CTA:There is no evidence of hemorrhage, mass effect, or acute territorial ischemia noting angiographic phase technique. Unremarkable CT angiogram of the brain. Unremarkable CT angiogram of the neck. --ECHO: Left ventricular systolic function is normal. EF 60 to 65%. Mild aortic regurgitation. Mild aortic root dilatation 4.1 cm. Normal inferior vena cava size and collapsibility with sniff indicates a normal right atrial pressure of 3 mmHg --EEG:This is an abnormal routine EEG due to generalized background slowing suggestive of a non specific encephalopathy. No epileptiform activity is seen. No longer on medications for dementia 2/2 ADRs Appreciate neurology input Neurology recommends dual antiplatelet therapy, patient's family currently prefers not to be started on any new medications Fall precautions PT OT Needs follow-up with neurology on discharge Continue current management Plan to be discharged home today Moderate Alzhemier's Dementia Delirium precautions continue b12 Needs neuropsychologist following discharge Zyprexa as needed GERD continue PPI BPH with incontinence wears depends at home UA negative Monitor for any retention Prediabetes HbA1c 6.0 Aortic root aneurysm Last echo 2022 Aortic root is minimally dilated at 4.1 cm, Prox ascending aorta is minimally enlarged at 4.1 cm. No acute cardiac symptoms DVT Px: Heparin SQ CODE STATUS Full code Disposition Rehab Admission and Anticipated Discharge Date Admission Date: October 12, 2023 Subjective Patient is seen and examined at bedside Sitting in chair comfortably during my encounter Offers no new complaints Plan to be discharged to rehab facility today Review of Systems Review of Systems: All systems reviewed & are unremarkable except as noted in Subjective Physical Exam Physical Exam: Physical Exam: Vitals signs as noted above General Appearance:Moderately built and nourished, no apparent distress, chronic ill appearing Head: normocephalic, Atraumatic Eyes: normal inspection, EOMI Neck: supple, Trachea midline Respiratory/Chest: Normal breath sounds, CTA, No accessory muscle use Cardiovascular: S1, S2, No murmur Abdomen/GI:Soft, Non tender, Bowel sounds present Extremities/Musculoskeletal:normal inspection, no edema Neurologic/Psych:AAOX2, grossly no focal neurological deficits, +Dementia Skin: normal color, warm Results & Data Results & Data Vital Signs (Past 12 Hours) Vital Signs Temp Pulse Resp BP Pulse Ox O2 Del Method 10/16/23 11:48 36.4 C L 62 16 110/74 96 Room Air 10/16/23 07:56 36.5 C 64 16 134/78 94 Room Air Laboratory Results [facility] 10/16/23 08:28 Sodium 139 Potassium 4.2 Chloride 107 Carbon Dioxide 26 BUN 31 H Creatinine 1.16 Glucose 92 Calcium 9.2
--- NOTE | 2023-10-16 12:03 | Discharge Summary ---
Date of Service October 16, 2023 Admission HPI Per Admitting Provider Mr. Arevalo is a 73 year old gentleman with moderate Alzhemier's dementia, GERD, traumatic fall c/b SAH 11/2022 presented to [facility] ED due to syncopal episode. Patient states he doesn't recall events and deferred history to . Hayley at bedside, , reports that she woke the patient up this morning and he ate breakfast. She then prepped him for a shower. He uses a shower chair and prefers very hot showers--during this time she noted that his eyes rolled back, he began to jerk his arms, became pale and slumped. During this time the got water from the kitchen and patient was able to follow command and drink. As the episode subsided, patient was incontinent of stool. states he seemed at his normal shortly thereafter but agreed for EMS to bring him to ED. states that this episode has occurred previously around 3months prior--same scenario, in the shower. At that time, EMS gave a bolus in field and patient did not present to an ED. Patient states name and his location in a hospital, but did not state year and often deferred to . In the ED, vitals were notable for BP of 120s, HR of 50-60s, and O2 sat of high 90s on room air . Imaging revealed stable CT head EKG with sinus bradycardia, stable compared to prior ED interventions: 1L, zofran Patient to be admitted to [facility]. for further evaluation and management of syncopal episode Admission Exam Per Admitting Provider GENERAL APPEARANCE: AxOx2 name, place, generally well-appearing male, pleasant w/ dementia, no acute distress. HEENT: NC, AT. MMM. EOMI, clear conjunctiva, oropharynx clear. NECK: Supple without lymphadenopathy. No stiffness or restricted ROM. HEART: Normal rate and regular rhythm, normal S1/S1, no m/r/g LUNGS: CTAB, moving air well. No crackles or wheezes are heard. ABDOMEN: Soft, nontender, nondistended with good bowel sounds heard. BACK: No CVAT, no obvious deformity. EXTREMITIES: Without cyanosis, clubbing or edema. NEUROLOGICAL: Grossly nonfocal. Alert and oriented, moving all 4 extremities. CN not formally tested but appear grossly intact. Skin: Warm and dry without any rash. Principal Diagnosis Syncope Cannot rule out CVA Alzheimer's Dementia BPH with incontinence Discharge Data Allergies Allergy/AdvReac Type Severity Reaction Status Date / Time No Known Allergies Allergy Verified 03/11/23 16:37 Consultations 10/10/23 15:27 ED Decision to Admit Stat 10/10/23 16:03 Consult Neurology Routine Procedures Performed Laboratory Results WBC 7.28 K/ul (4.8-10.8) 10/12/23 05:30 RBC 4.56 M/uL (4.70-6.10) L 10/12/23 05:30 Hgb 14.3 g/dl (14.0-18.0) 10/12/23 05:30 Hct 41.3 % (42.0-52.0) L 10/12/23 05:30 MCV 90.6 fL (80.0-100.0) 10/12/23 05:30 MCH 31.4 pg (25.0-34.0) 10/12/23 05:30 MCHC 34.6 g/dL (32.0-36.0) 10/12/23 05:30 RDW Std Deviation 42.7 fL (36.4-46.3) 10/12/23 05:30 RDW Coeff of Jossie 12.8 % (11.5-14.5) 10/12/23 05:30 Plt Count 174 K/uL (130-400) 10/12/23 05:30 MPV 9.7 fL (9.4-12.4) 10/12/23 05:30 Immature Gran % (Auto) 0.3 % 10/12/23 05:30 Neut % (Auto) 53.1 % 10/12/23 05:30 Lymph % (Auto) 31.0 % 10/12/23 05:30 [place] % (Auto) 11.5 % 10/12/23 05:30 Eos % (Auto) 3.3 % 10/12/23 05:30 Baso % (Auto) 0.8 % 10/12/23 05:30 Neut # (Auto) 3.86 K/uL (1.40-6.50) 10/12/23 05:30 Lymph # (Auto) 2.26 K/uL (1.20-3.40) 10/12/23 05:30 [place] # (Auto) 0.84 K/uL (0.11-0.59) H 10/12/23 05:30 Eos # (Auto) 0.24 K/uL (0.00-0.50) 10/12/23 05:30 Baso # (Auto) 0.06 K/uL (0.00-0.20) 10/12/23 05:30 Immature Gran # (Auto) 0.02 K/uL (0.01-0.20) 10/12/23 05:30 PT 11.2 Seconds (9.0-12.0) 10/10/23 12:00 INR 1.0 (0.9-1.1) 10/10/23 12:00 Sodium 139 mmol/L (136-145) 10/16/23 08:28 Potassium 4.2 mmol/L (3.5-5.1) 10/16/23 08:28 Chloride 107 mmol/L (98-107) 10/16/23 08:28 Carbon Dioxide 26 mmol/L (21-32) 10/16/23 08:28 Anion Gap 6 (3-11) 10/16/23 08:28 BUN 31 mg/dl (6-23) H 10/16/23 08:28 Creatinine 1.16 mg/dl (0.6-1.4) 10/16/23 08:28 Est Cr Clr Drug Dosing 60.4 ml/min 10/16/23 08:28 Est GFR ( Amer) 71.0 ml/min 10/16/23 08:28 Est GFR (Non-Af Amer) 61.3 ml/min 10/16/23 08:28 BUN/Creatinine Ratio 26.7 (10-20) H 10/16/23 08:28 Glucose 92 mg/dl (70-99(Fasting)) 10/16/23 08:28 Estimat Average Glucose 126 mg/dl 10/11/23 06:58 Hemoglobin A1c 6.0 % (4.5-5.6) H 10/11/23 06:58 Calcium 9.2 mg/dl (8.6-10.3) 10/16/23 08:28 Phosphorus 3.3 mg/dl (2.5-4.9) 10/11/23 06:58 Magnesium 2.0 mg/dl (1.7-2.4) 10/11/23 06:58 Total Bilirubin 0.6 mg/dl (0.2-1.0) 10/10/23 12:00 AST 23 U/L (13-39) 10/10/23 12:00 ALT 25 U/L (7-52) 10/10/23 12:00 Alkaline Phosphatase 49 U/L (34-104) 10/10/23 12:00 Troponin I High Sens 3.7 pg/ml (0-20) 10/10/23 12:00 Total Protein 7.3 gm/dl (6.0-8.3) 10/10/23 12:00 Albumin 4.0 gm/dl (3.4-5.0) 10/10/23 12:00 Globulin 3.3 gm/dl (2.5-4.0) 10/10/23 12:00 Albumin/Globulin Ratio 1.2 (0.9-2) 10/10/23 12:00 Triglycerides 99 mg/dl (0-150) 10/12/23 05:30 Cholesterol 210 mg/dl (0-200) H 10/12/23 05:30 LDL Cholesterol, Calc 144 mg/dl 10/12/23 05:30 VLDL Cholesterol, Calc 20 mg/dl (0-30) 10/12/23 05:30 HDL Cholesterol 46 mg/dl 10/12/23 05:30 Cholesterol/HDL Ratio 4.6 (0-5) 10/12/23 05:30 TSH 4.415 uIu/ml (0.300-4.500) 10/10/23 12:00 Urine Color Yellow 10/10/23 15:10 Urine Appearance Clear (Clear) 10/10/23 15:10 Urine pH 5.5 (4.5-7.5) 10/10/23 15:10 Ur Specific [place] 1.022 (1.000-1.030) 10/10/23 15:10 Urine Protein Negative (Negative) 10/10/23 15:10 Urine Glucose (UA) Negative (Negative) 10/10/23 15:10 Urine Ketones Negative (Negative) 10/10/23 15:10 Urine Blood Negative (Negative) 10/10/23 15:10 Urine Nitrite Negative (Negative) 10/10/23 15:10 Urine Bilirubin Negative (Negative) 10/10/23 15:10 Urine Urobilinogen Negative (Negative) 10/10/23 15:10 Ur Leukocyte Esterase Negative (Negative) 10/10/23 15:10 Impressions Chest X-Ray 10/10/23 12:23 SINGLE VIEW CHEST CLINICAL HISTORY: Generalized weakness. FINDINGS: An AP, portable, upright chest radiograph is compared to study dated 03/11/2023. The heart is enlarged. The pulmonary vasculature is noncongested. Chronic mucosal thickening is similar to previous. Left basilar opacities likely represent scarring/atelectasis. No large pleural effusion or pneumothorax is seen. The skeletal structures are osteopenic. The bony thorax is grossly intact. IMPRESSION: 1. Cardiomegaly without radiographic evidence of congestive failure. 2. Left basilar opacities likely represent scarring/atelectasis. Correlate clin ically. ACT 112: Negative or not required by law. Electronically signed by: Torey Belle M.D. 10/10/2023 12:[address] 10/10/23 12:[address] DOSE: 663.26 mGy.cm HISTORY: shakiness, stool incontinence, near syncope, confusion TECHNIQUE: Multiaxial CT images of the head were performed without the use of intravenous contrast. Automated exposure control was utilized for this study. A dose lowering technique was utilized adhering to the principles of ALARA. Comparison: Head CT 03/11/2023. Findings: The paranasal sinuses and mastoid air cells are clear. The calvarium and skull base are intact. There is no mass, hematoma, midline shift, acute infarct. Moderate ventriculomegaly again noted. This appears to be out of portion to the sulcal atrophy and raises the possibility of normal pressure hydrocephalus. This is similar to the prior study. Periventricular white matter hypodensity persists Impression: 1. No acute infarct or intracranial hemorrhage. 2. Moderate ventriculomegaly again noted. This appears to be out of portion to the sulcal atrophy and raises the possibility of normal pressure hydrocephalus. This is similar to the prior study. ACT 112: Negative or not required by law. Electronically signed by: Dax Han M.D. 10/10/2023 1:18 PM Brain MRI 10/11/23 10:44 MRI OF THE BRAIN COMBO CLINICAL HISTORY: Syncope. Change in mental status. COMPARISON STUDY: CT of the brain dated 10/10/2023. TECHNIQUE: MRI of the brain was performed utilizing various T1 and T2-weighted sequences in the axial, sagittal, and coronal planes. Contrast-enhanced sequences were acquired following the administration of 8.5 cc of Gadavist. FINDINGS: Brain parenchyma: There is a punctate focus of restricted diffusion versus artifact seen within the inferior left cerebellar hemisphere on image #4. This could not be corroborated on the ADC maps. No additional foci of restricted diffusion are identified. There is no hemorrhage or mass effect. There is age- related involutional change noting advanced confluent subcortical and periventricular microangiopathic disease. No enhancing mass lesion is identified on the postcontrast images. Nassar-white matter differentiation is preserved. No extra-axial fluid collection is seen. The cerebellar tonsils are normal in configuration. Ventricles, sulci, and cisterns: Ventriculomegaly is similar to previous. Pituitary and sella: Unremarkable. Intracranial vasculature: Normal flow voids are maintained at the skull base. Orbits: The bony orbits are grossly intact. Orbital contents are normal in appearance noting bilateral ocular lens implants. Sinuses and mastoids: Clear. Calvarium: Unremarkable. Cervical cord: Partially visualized cervical spinal cord is normal in morphology and signal intensity. IMPRESSION: 1. There is a punctate focus of artifact versus restricted diffusion in the left cerebellar hemisphere. A tiny lacunar infarct is not excluded. 2. No additional foci of restricted diffusion are identified. 3. There is no hemorrhage or mass effect. 4. Additional findings as above. ACT 112: Negative or not required by law. Electronically signed by: Torey Belle M.D. 10/11/2023 1:35 PM Head CTA 10/11/23 10:44 CT ANGIOGRAM OF THE BRAIN; CT ANGIOGRAM OF THE NECK CLINICAL HISTORY: Syncope COMPARISON STUDY: Unenhanced CT of the brain dated 10/10/2023. TECHNIQUE: Following the IV administration of 119 of Optiray 320, CT angiogram of the head and neck was performed from the aortic arch to the vertex. Images are reviewed in the axial, sagittal, and coronal planes. 3-D MIPS images are created and assessed. IV contrast was administered without complication. All measurements were calculated based on NASCET criteria. A dose lowering technique was utilized adhering to the principles of ALARA. CT DOSE: 533.28 mGy.cm FINDINGS: Brain parenchyma: There is age-related involutional change noting advanced subcortical and periventricular microangiopathic disease. There is no evidence of hemorrhage, mass effect, or acute territorial ischemia noting angiographic phase technique. There is no evidence of enhancing mass lesion on the angiogram phase images. The ventricles, sulci, and cisterns are prominent secondary to involutional change. Ventriculomegaly is again noted. Nassar-white matter differentiation is preserved. No extra-axial fluid collection is seen. Thoracic aorta: Visualized portions of the thoracic aorta are normal in caliber. The aortic arch demonstrates standard 3-vessel anatomy. Right carotid arterial system: The right common carotid artery is widely patent, as are the right internal carotid artery. Mild calcified plaque is seen in the carotid bulb. Left carotid arterial system: The left common carotid artery is widely patent, as are the left internal and external carotid arteries. Minimal calcified plaque is noted in the carotid bulb. Vertebral arteries: Widely patent bilaterally and codominant. Subclavian arteries: Widely patent bilaterally noting atherosclerotic plaque on the left. Intracranial vasculature: The internal carotid arteries are patent at the skull base, as are the anterior and middle cerebral arteries bilaterally. The vertebrobasilar system and posterior cerebral arteries are widely patent. The vertebral arteries are codominant. There is a large right posterior communicating artery. There is no aneurysm, high-grade stenosis, or focal vessel cut off seen throughout the intracranial circulation. Jugular veins: Patent bilaterally. Dural sinuses: Patent. Lung apices: Partially visualized upper lobe lung parenchyma appears clear. Soft tissues: The visualized pharyngeal soft tissues are normal in appearance noting angiographic phase technique. The oropharyngeal airway appears widely patent. The salivary and thyroid glands are normal in appearance. No cervical lymphadenopathy is seen. Skeletal structures: The skeletal structures are osteopenic. The calvarium appears intact. The cervical spine is maintained noting multilevel spondylosis. Orbits: The bony orbits are intact. Orbital contents are normal as visualized noting bilateral ocular lens implants. Sinuses and mastoids: There is mild mucosal thickening within the maxillary antra. The remaining paranasal sinuses are clear. The mastoid air cells are well pneumatized. IMPRESSION: 1. There is no evidence of hemorrhage, mass effect, or acute territorial ischemia noting angiographic phase technique. 2. Unremarkable CT angiogram of the brain. 3. Unremarkable CT angiogram of the neck. ACT 112: Negative or not required by law. Electronically signed by: Torey Belle M.D. 10/11/2023 12:02 PM Neck CTA 10/11/23 10:44 CT ANGIOGRAM OF THE BRAIN; CT ANGIOGRAM OF THE NECK CLINICAL HISTORY: Syncope COMPARISON STUDY: Unenhanced CT of the brain dated 10/10/2023. TECHNIQUE: Following the IV administration of 119 of Optiray 320, CT angiogram of the head and neck was performed from the aortic arch to the vertex. Images are reviewed in the axial, sagittal, and coronal planes. 3-D MIPS images are created and assessed. IV contrast was administered without complication. All measurements were calculated based on NASCET criteria. A dose lowering techn ique was utilized adhering to the principles of ALARA. CT DOSE: 533.28 mGy.cm FINDINGS: Brain parenchyma: There is age-related involutional change noting advanced subcortical and periventricular microangiopathic disease. There is no evidence of hemorrhage, mass effect, or acute territorial ischemia noting angiographic phase technique. There is no evidence of enhancing mass lesion on the angiogram phase images. The ventricles, sulci, and cisterns are prominent secondary to involutional change. Ventriculomegaly is again noted. Nassar-white matter differentiation is preserved. No extra-axial fluid collection is seen. Thoracic aorta: Visualized portions of the thoracic aorta are normal in caliber. The aortic arch demonstrates standard 3-vessel anatomy. Right carotid arterial system: The right common carotid artery is widely patent, as are the right internal carotid artery. Mild calcified plaque is seen in the carotid bulb. Left carotid arterial system: The left common carotid artery is widely patent, as are the left internal and external carotid arteries. Minimal calcified plaque is noted in the carotid bulb. Vertebral arteries: Widely patent bilaterally and codominant. Subclavian arteries: Widely patent bilaterally noting atherosclerotic plaque on the left. Intracranial vasculature: The internal carotid arteries are patent at the skull base, as are the anterior and middle cerebral arteries bilaterally. The vertebrobasilar system and posterior cerebral arteries are widely patent. The vertebral arteries are codominant. There is a large right posterior communicati ng artery. There is no aneurysm, high-grade stenosis, or focal vessel cut off seen throughout the intracranial circulation. Jugular veins: Patent bilaterally. Dural sinuses: Patent. Lung apices: Partially visualized upper lobe lung parenchyma appears clear. Soft tissues: The visualized pharyngeal soft tissues are normal in appearance noting angiographic phase technique. The oropharyngeal airway appears widely patent. The salivary and thyroid glands are normal in appearance. No cervical lymphadenopathy is seen. Skeletal structures: The skeletal structures are osteopenic. The calvarium appears intact. The cervical spine is maintained noting multilevel spondylosis. Orbits: The bony orbits are intact. Orbital contents are normal as visualized noting bilateral ocular lens implants. Sinuses and mastoids: There is mild mucosal thickening within the maxillary antra. The remaining paranasal sinuses are clear. The mastoid air cells are well pneumatized. IMPRESSION: 1. There is no evidence of hemorrhage, mass effect, or acute territorial ischemia noting angiographic phase technique. 2. Unremarkable CT angiogram of the brain. 3. Unremarkable CT angiogram of the neck. ACT 112: Negative or not required by law. Electronically signed by: Torey Belle M.D. 10/11/2023 12:02 PM Ordered Studies 10/10/23 12:45 CT head/brain wo con Stat 10/11/23 10:44 CTA head w con [CT angio head w con] Urgent CTA neck with con [CT angio neck with con] Urgent MRI Brain [MR brain wo/w con] Urgent Hospital Course (1) Syncope and collapse: (2) Moderate Alzheimer's dementia: Plan Mr. Arevalo is a 73 year old gentleman with moderate Alzhemier's dementia, GERD, traumatic fall c/b SAH 11/2022 presented to [facility] ED due to syncopal episode. Patient asymptomatic at time of exam. Concern is raised given his history of SAH, progressive cognitive impairment of this events ,prompting neuro consult. Symptoms suggestive of prodromal vasovagal event. Syncope with convulsive movements H/O SAH Unwitnessed fall 11/2022, found down, CT with small right SAH. Progressive cognitive impairment S/P TBI Cannot rule out CVA Possible vasovagal episode --MRI Brain:here is a punctate focus of artifact versus restricted diffusion in the left cerebellar hemisphere. A tiny lacunar infarct is not excluded. No additional foci of restricted diffusion are identified. There is no hemorrhage or mass effect. --Head/Neck CTA:There is no evidence of hemorrhage, mass effect, or acute territorial ischemia noting angiographic phase technique. Unremarkable CT angiogram of the brain. Unremarkable CT angiogram of the neck. --ECHO: Left ventricular systolic function is normal. EF 60 to 65%. Mild aortic regurgitation. Mild aortic root dilatation 4.1 cm. Normal inferior vena cava size and collapsibility with sniff indicates a normal right atrial pressure of 3 mmHg --EEG:This is an abnormal routine EEG due to generalized background slowing suggestive of a non specific encephalopathy. No epileptiform activity is seen. No longer on medications for dementia 2/2 ADRs Appreciate neurology input Neurology recommends dual antiplatelet therapy, patient's family currently prefe rs not to be started on any new medications Fall precautions PT OT Needs follow-up with neurology on discharge Continue current management Plan to be discharged home today Moderate Alzhemier's Dementia Delirium precautions continue b12 Needs neuropsychologist following discharge Zyprexa as needed GERD continue PPI BPH with incontinence wears depends at home UA negative Monitor for any retention Prediabetes HbA1c 6.0 Aortic root aneurysm Last echo 2022 Aortic root is minimally dilated at 4.1 cm, Prox ascending aorta is minimally enlarged at 4.1 cm. No acute cardiac symptoms DVT Px: Heparin SQ CODE STATUS Full code Disposition Rehab Total Time Total Time Spent Total Time Spent (In Minutes): 51 minutes Discharge Plan Discharge Items Patient Disposition: Transfer [facility] Reason For Visit: SYNCOPE Discharge Diagnosis: Syncope Cannot rule out CVA Alzheimer's Dementia BPH with incontinence Activity: Per Instructions section Exercise/Sports: Gradually increase as tolerated Non-emergency contact: Primary Care Provider and Neurologist Call non-emergency contact if: you have any medication questions, your symptoms worsen, your pain is concerning for you and you have a fever Follow-up/Referrals: Kenn Bliss DO [Primary Care Provider] - (Date & Time 10/20/2023 2:20 PM Provider Kenn Bliss DO Department Family Practice [facility] ) Diet: Regular Addtl Attending Provider Instructions: Follow-up with your primary care physician Dr. Kenn Bliss in 1 week upon discharge from rehab facility Follow-up with your neurologist in 3-4 weeks Seek immediate medical attention if your symptoms reoccur or worsen Please take all medications as instructed on discharge list below. Please call if you have any questions or problems. You can reach a [facility] hospitalist on duty at [facility] 24 hours a day by calling [phone] Pending Studies at Discharge: No Stand-Alone Forms: My [facility] Skilled Items Patient informed of condition?: Yes DNR: No Discharge Level of Care: Skilled Communicable Disease: No Discharge Prognosis: Stable Lines: None Urinary Catheter: No Medications and DC Order Prescriptions: Continued pantoprazole 20 mg tablet,delayed release (DR/EC) 20 mg PO DAILY cyanocobalamin (vitamin B-12) 1,000 mcg PO DAILY Discharge Orders: Discharge Order (Routine); Ordered 10/16/23 Ordered By: Jr Barragan/Other Patient Handouts: A1C Admission Data Admit Date/Time: 10/12/23 13:02 Attending Provider: Jr Zavala Admit Provider: Haley Galeano Primary Care Provider: Kenn Bliss Other Providers: Haley Galeano; Zafar Faith; Samantha Kidd [facility]
[2023-10-16 12:08] VITALS: BP 126/63
== END 2023-10-16 13:30 | DRG 312 ==
LOC: 2W 11:48 → ED 11:48 → SUATTDRO 16:01 → 2W 17:10 → SUATTDRO 10-12 13:02